=== PATIENT | female | born 1970 | race Caucasian/White ===

== ENCOUNTER 2023-09-21 14:01 | Emergency (ER) | payer OTHER, SELFPAY ==
[2023-09-21 14:16] VITALS: BP 99/71
[2023-09-21 14:39] LABS: % Basophils 0.6 % (0-2); % Eosinophils 5.9 % (0-6); % Immature Granulocytes 0.5 % (0-0.5); % Lymphocytes 6.6 % (20.5-51.1); % Monocytes 6.4 % (1.7-9.3); Absolute Basophils 0.1 10^3/uL (0-0.2); Absolute Eosinophils 0.6 10^3/uL (0-0.7); Absolute Immature Granulocytes 0.1 10^3/uL (0-0.05); Absolute Lymphocytes 0.7 10^3/uL (1.2-3.4); Absolute Monocytes 0.7 10^3/uL (0.1-0.6); Absolute Neutrophils 8.2 10^3/uL (1.4-6.5); Hematocrit 32.9 % (37.0-47.0); Hemoglobin 10.8 g/dL (12.0-16.0); Mean Corp Hgb Conc. 32.8 g/dL (33.0-37.0); Mean Corpuscular Hgb 30.1 pg (27.0-31.0); Mean Corpuscular Volume 91.6 fL (81.0-99.0); Mean Platelet Volume 8.6 fL (7.4-10.4); Nucleated Red Blood Cells % 0 %; Platelet Count 353 10^3/uL (130-400); Red Blood Cell Count 3.59 10^6/uL (4.20-5.40); Red Cell Dist. Width 13.8 % (11.5-14.5); White Blood Cell Count 10.3 10^3/uL (4.8-10.8)
[2023-09-21 14:49] LABS: Lactic Acid 1.5 mmol/L (0.7-2.0)
[2023-09-21 14:53] LABS: ALT (SGPT) 13 U/L (0-35); AST (SGOT) 17 U/L (14-36); Albumin 3.7 g/dl (3.5-5.0); Alkaline Phosphatase 78 U/L (38-126); Blood Urea Nitrogen 16 mg/dl (7-17); Calcium 9.6 mg/dl (8.4-10.2); Carbon Dioxide 28 mmol/L (22-30); Chloride 105 mmol/L (98-107); Glucose 101 mg/dl (70-99); Potassium 4.1 mmol/L (3.5-5.1); Sodium 141 mmol/L (135-145); Total Bilirubin 0.3 mg/dl (0.2-1.3); Total Protein 6.7 g/dl (6.3-8.2); eGFR > 60.00
[2023-09-21 17:20] VITALS: BP 105/79; BMI 17.1
--- NOTE | 2023-09-21 18:56 | ED.GENMED ---
History of Present Illness
General
Chief Complaint: Anal/Rectal Problem
Source: patient
Exam Limitations: none
Time Seen by Provider: 09/21/23 17:25
Nursing documentation reviewed up to this point in time: agreed with
Travel History
Have you had any contact with someone who has COVID-19?: No
Do you have any symptoms of coronavirus? Fever > 100 degrees, chills, cough, shortness of breath, sore throat, loss of taste or smell, muscle aches, or headache?: No
History of Present Illness
History of Present Illness:
Patient with history of anal cancer diagnosed 2 years ago, who currently has colostomy bag as well as anal fistula, presents to ED secondary to continual drainage from her anal fistula which is foul-smelling along with low-grade fever at home. This
has been happening for the past 5 weeks or so, but appears to be worse. During this time, patient has been evaluated at [facility], where surgery was recommended, which patient deferred at that time. Patient is in the midst of seeing
different colorectal surgeon for second opinion, and has an appointment in 2 weeks. Denies vomiting. Denies abdominal pain. Denies loss of appetite. Denies dizziness or weakness. Denies chest pain or shortness of breath.
Past History
Past History
ED Past Medical History: Other (autism)
ED Past Surgical History: Orthopedic (carpal tunnel surgery)
Social History
Tobacco: Non-smoker
Alcohol: None
Drug: None
Review of Systems
Review of Systems
Allergies reviewed?: Yes
All Other Systems: ROS reviewed and negative except as documented in HPI and ROS
Constitutional: Reports fever; Denies chills
EENT: Reports no symptoms
Respiratory: Reports no symptoms
Cardiac: Reports no symptoms
ABD/GI: Reports other (Drainage from anal fistula)
Musculoskeletal: Reports no symptoms
Skin: Reports no symptoms
Neurological: Reports no symptoms
Phy Exam
Physical Exam
Physical Exam:
Physical Exam
General: no apparent distress, not acutely ill. afebrile.
Head: nc/at. eomi
Neck: supple. no meningeal signs.
Heart: s1/s2 regular rate and rhythm, no murmur. equal radial pulses.
Lungs: no acute respiratory distress. clear bilaterally
Abdomen: normal bowel sounds. not tender. rectal exam: fistula noted laterally without active drainage.
Neuro: alert and oriented. no focal neurological deficits
Skin: no rash
Psychiatric: well kept. interactive and cooperative
Extremities: no edema. no calf tenderness.
Course
Orders/Labs/Results
Orders:
Orders
09/21/23 14:17
Electrocardiogram (*1) Urgent
Reason for Study: Other
Other Reason for Exam: Possible Sepsis
09/21/23 14:18
EKG- Treatment ONCE
09/21/23 14:28
Complete Blood Count/With Diff Urgent
Comprehensive Metabolic Panel Urgent
Lactic Acid Q4H
Comment: ON ICE, CANCEL 2ND ORDER IF FIRST LACTIC ACID LEVEL <2
09/21/23 20:38
Doxycycline [Vibramycin] 100 mg PO NOW STA
Abnormal Lab Results
09/21/23
14:28
RBC 3.59 L 10^6/uL
(4.20-5.40)
Hgb 10.8 L g/dL
(12.0-16.0)
Hct 32.9 L %
(37.0-47.0)
MCHC 32.8 L g/dL
(33.0-37.0)
Abs Immat Gran (auto) 0.1 H 10^3/uL
(0-0.05)
Absolute Neuts (auto) 8.2 H 10^3/uL
(1.4-6.5)
Absolute Lymphs (auto) 0.7 L 10^3/uL
(1.2-3.4)
Absolute Monos (auto) 0.7 H 10^3/uL
(0.1-0.6)
Neutrophils % 80.0 H %
(42.2-75.2)
Lymphocytes % 6.6 L %
(20.5-51.1)
Glucose 101 H mg/dl
(70-99)
09/21/23 14:28
09/21/23 14:28
Vital Signs
Initial and Last Documented VS:
Initial Vital Signs
Temp Pulse Resp BP Pulse Ox
99.1 F 115 20 99/71 96
09/21/23 14:16 09/21/23 14:16 09/21/23 14:16 09/21/23 14:16 09/21/23 14:16
Last Documented Vital Signs
Temp Pulse Resp BP Pulse Ox
99.1 F 78 13 97/63 96
09/21/23 14:16 09/21/23 19:40 09/21/23 17:20 09/21/23 19:40 09/21/23 19:40
MDM/Problems Addressed
MDM/Problems Addressed:
Patient with unremarkable blood work results and remains hemodynamically stable.
Discussed with Dr. Sawant, colorectal surgery. Does not feel that patient needs an acute intervention nor any additional imaging studies at this time. Patient can follow-up with Dr. Sunshine later this month. Patient will be contacted if earlier
appointment can be accommodated.
Patient will be started on doxycycline, as this helped her recently when there was increased drainage.
*Critical Care Note
Total Time (30-74mins, 75-104mins- exclusive of procedures): Not Applicable
ED Attending Note
-
Portions of this chart may have been created with voice recognition software.� Occasional wrong word or��sound alike� substitutions may have occurred due to the inherent limitations of voice recognition software.
Discharge Plan
Departure
Patient Disposition: Home (Routine Discharge)
Date of Disposition: 09/21/23
Time of Disposition: 20:39
Patient with high blood pressure during this ER visit?: No
Condition: Good
Discharge Problem:
Anal fistula
Instructions: Anal Abscess and Fistula, Adult (DC)
Prescriptions:
New
doxycycline hyclate 100 mg tablet
100 mg PO BID Qty: 13 0RF
Referrals:
Sabine Ho PA-C [Family Provider] -
Reji Simmons MD [Active] -
Activity Restrictions/Additional Instructions:
As discussed, please follow-up with referred to colorectal surgery as scheduled for further evaluation and treatment. Your prescription has been sent electronically to [facility] pharmacy in [place]. Please return to ED with worsening symptoms.
Interventions
Interventions:
*Risk Screen - Suicide Last Done: 09/21/23 14:12
*General Assessment Last Done: 09/21/23 14:12
*Neglect/Abuse Screening Last Done: 09/21/23 14:12
ED- Fall Risk Assessment Last Done: 09/21/23 20:52
*ED COVID-19 Vaccine History Last Done: 09/21/23 17:20
*Nursing Disposition Last Done: 09/21/23 20:52
ED-Skin Assessment Last Done: 09/21/23 17:20
Discharge Date and Time
Discharge Date/Time: 09/21/23 20:52
[2023-09-21 19:40] VITALS: BP 97/63
[2023-09-21] MEDS: VIBRAMYCIN 100 MG PO (20:49)
== END 2023-09-21 20:52 | disposition home or self-care (01) ==
LOC: EMR 14:01
PROVIDERS: Physician Assistant; EMERGENCY PHYSICIAN Emergency Medicine; FAMILY PHYSICIAN Physician Assistant Medical
DX: K60.3 Anal fistula (principal); Z93.3 Colostomy status
CPT/HCPCS: 99284; 80053; 83605; 85025; 93005

== ENCOUNTER 2023-12-09 22:16 | Inpatient (IN) | payer OTHER, SELFPAY ==
[2023-12-09 15:58] VITALS: BP 131/90
[2023-12-09 17:03] LABS: % Basophils 0.8 % (0-2); % Eosinophils 6.3 % (0-6); % Immature Granulocytes 0.5 % (0-0.5); % Monocytes 8.1 % (1.7-9.3); % Neutrophils 75.3 % (42.2-75.2); Absolute Basophils 0.1 10^3/uL (0-0.2); Absolute Eosinophils 0.6 10^3/uL (0-0.7); Absolute Lymphocytes 0.8 10^3/uL (1.2-3.4); Absolute Monocytes 0.7 10^3/uL (0.1-0.6); Absolute Neutrophils 6.7 10^3/uL (1.4-6.5); Hematocrit 38.9 % (37.0-47.0); Hemoglobin 12.5 g/dL (12.0-16.0); Mean Corp Hgb Conc. 32.1 g/dL (33.0-37.0); Mean Corpuscular Volume 93.3 fL (81.0-99.0); Mean Platelet Volume 8.5 fL (7.4-10.4); Nucleated Red Blood Cells % 0 %; Platelet Count 362 10^3/uL (130-400); Red Blood Cell Count 4.17 10^6/uL (4.20-5.40); White Blood Cell Count 8.9 10^3/uL (4.8-10.8)
[2023-12-09 17:19] LABS: ALT (SGPT) 11 U/L (0-35); AST (SGOT) 16 U/L (14-36); Alkaline Phosphatase 78 U/L (38-126); Blood Urea Nitrogen 15 mg/dl (7-17); Calcium 10.2 mg/dl (8.4-10.2); Carbon Dioxide 29 mmol/L (22-30); Chloride 102 mmol/L (98-107); Glucose 126 mg/dl (70-99); Potassium 3.9 mmol/L (3.5-5.1); Sodium 140 mmol/L (135-145); Total Bilirubin 0.2 mg/dl (0.2-1.3); Total Protein 6.9 g/dl (6.3-8.2); eGFR > 60.00
[2023-12-09] MEDS: NSS 500 IV (17:30)
[2023-12-09 17:52] LABS: Urine Albumin Trace (Neg - Trace); Urine Bilirubin 1+ (Negative); Urine Character Clear (Clear); Urine Color Yellow; Urine Glucose Negative (Negative); Urine Ketone 1+ (Negative); Urine Leukocyte 1+ (Negative); Urine Nitrite Negative (Negative); Urine Occult Blood Negative (Negative); Urine Specific Gravity 1.025 (<1.030); Urine Urobilinogen 1+ (Neg - 1+)
[2023-12-09 18:02] LABS: Urine Bacteria Many (Negative); Urine Red Blood Cell 0-2 /HPF (0-2); Urine Squamous Cell >30 /LPF (Few)
--- NOTE | 2023-12-09 18:26 | ED.GENMED ---
History of Present Illness
General
Chief Complaint: Anal/Rectal Problem
Source: patient
Exam Limitations: none
Time Seen by Provider: 12/09/23 16:36
Travel History
Have you had any contact with someone who has COVID-19?: No
Do you have any symptoms of coronavirus? Fever > 100 degrees, chills, cough, shortness of breath, sore throat, loss of taste or smell, muscle aches, or headache?: No
History of Present Illness
History of Present Illness:
52-year-old female with known anal cancer. Treated with chemotherapy and radiation. Complaining of change in drainage from her rectum and a probable new abscess. Patient is followed by [facility] and Dr. Healy. Low-grade fevers
recently
Past History
Past History
ED Past Medical History: Other (Anal cancer) and Other (autism)
ED Past Surgical History: Orthopedic (carpal tunnel surgery) and Other (Colostomy)
Social History
Tobacco: Non-smoker
Alcohol: None
Drug: None
Review of Systems
Review of Systems
All Other Systems: Not applicable
Constitutional: Reports fever
ABD/GI: Denies abdominal pain or vomiting
Phy Exam
Physical Exam
Physical Exam:
GENERAL: Alert and oriented in no apparent distress. Thin
EYE: Orbits normal.
NECK: Supple
CARDIAC: Regular rate and rhythm without any obvious murmurs.
LUNGS: Clear breath sounds,normal
ABDOMEN: Soft, without focal tenderness or distention. Colostomy in place. Rectal exam with induration some clear drainage and mild erythema tenderness. Hemorrhoids also noted
NEUROLOGICAL: Alert and oriented , grossly non-focal
SKIN: Warm and dry, no rash or lesion, no discoloration, skin intact.
MUSCULOSKELETAL: No edema,no deformity.Good color
PSYCH: Normal and appropriate interaction.
Course
Orders/Labs/Results
Orders:
Orders
12/09/23 16:48
Complete Blood Count/With Diff Urgent
Comprehensive Metabolic Panel Urgent
12/09/23 17:20
CT Abd/Pel (IV only)-DH only Urgent
Comment:
Reason For Exam: Known rectal CA.. Increased drainage and fever
0.9% Sodium Chloride 500 ml [Nss] 500 ml IV BOLUS
12/09/23 17:41
Urinalysis Reflex To Culture Urgent
Date Specimen was Collected: 12/09/23
Time Specimen was Collected: 17:30
Urine Microscopic Reflex Cult Urgent
Urine Culture Urgent
VU Source: U
Specimen Description:
Date Specimen was Collected: 12/09/23
Time Specimen was Collected: 17:30
12/09/23 21:11
Piperacillin/Tazo 4.5 Gram [Zosyn] 4.5 gram in 100 ml IV NOW
12/09/23 21:32
Admit/Transfer Patient As Directed
Co-Sign Provider:
Level of Care: Inpatient admission
Assign to:: Medical/Surgical
Physician / Group: amarilis
Diagnosis: perirectal abscess
Reason for Hospitalization: perirectal abscess
Expected length of stay greater than two midnights?: Yes
ELOS- Estimated Length of Stay in days: 2
I certify the patient meets the requirements for IP care: Yes
Code Status As Directed
Resuscitation Status: Full Code
12/09/23 21:45
Blood Culture Q30M
VU Source: Blood/Venous
Specimen Description:
12/09/23 22:15
Blood Culture Q30M
VU Source: Blood/Venous
Specimen Description:
Abnormal Lab Results
12/09/23 12/09/23
16:48 17:41
RBC 4.17 L 10^6/uL
(4.20-5.40)
MCHC 32.1 L g/dL
(33.0-37.0)
Absolute Neuts (auto) 6.7 H 10^3/uL
(1.4-6.5)
Absolute Lymphs (auto) 0.8 L 10^3/uL
(1.2-3.4)
Absolute Monos (auto) 0.7 H 10^3/uL
(0.1-0.6)
Neutrophils % 75.3 H %
(42.2-75.2)
Lymphocytes % 9.0 L %
(20.5-51.1)
Eosinophils % 6.3 H %
(0-6)
Glucose 126 H mg/dl
(70-99)
Urine Ketones 1+ A
(Negative)
Urine Bilirubin 1+ A
(Negative)
Leukocyte Esterase Rfl 1+ A
(Negative)
Urine WBC (Reflex) 11-15 A /HPF
(0-5)
Urine Bacteria (Reflex) Many A
(Negative)
12/09/23 16:48
12/09/23 16:48
Vital Signs
Initial and Last Documented VS:
Initial Vital Signs
Temp Pulse Resp BP Pulse Ox
99.6 F 119 18 131/90 98
12/09/23 15:58 12/09/23 15:58 12/09/23 15:58 12/09/23 15:58 12/09/23 15:58
Last Documented Vital Signs
Temp Pulse Resp BP Pulse Ox
99.6 F 95 18 104/75 98
12/09/23 15:58 12/09/23 22:02 12/09/23 22:02 12/09/23 22:02 12/09/23 22:02
MDM/Problems Addressed
Differential Diagnosis Includes:
Known anal cancer. Known fistula. Chronic drainage. However has changed in consistency and patient feels there is another abscess forming workup in progress. She also complains of bilateral posterior leg pain that she has had for months. There
is no weakness in the leg there is no cord no swelling no erythema good distal pulses. Workup in progress
*Radiology
Radiology exam reviewed: radiology read reviewed (Possible perirectal abscess)
*Pulse Oximetry
Patient hypoxic: no
*Critical Care Note
Total Time (30-74mins, 75-104mins- exclusive of procedures): Not Applicable
Data Reviewed
Review of Other/Old Records Reveals: Labs and Testing
Update Note
Update Note:
Discussed with colorectal. Admit for IV antibiotics
Patient likely does not have a true penicillin allergy. She stated amoxicillin caused a white rash on her legs 10 years ago. Feel Zosyn would be reasonable
ED Attending Note
-
Portions of this chart may have been created with voice recognition software.� Occasional wrong word or��sound alike� substitutions may have occurred due to the inherent limitations of voice recognition software.
Discharge Plan
Departure
Patient Disposition: Admit
Date of Disposition: 12/09/23
Time of Disposition: 21:10
Presentation/result/management discussed w/ accepting MD/DO: Colorectal
Discharge Problem:
Probable perirectal abscess, History of anal cancer
Prescriptions:
No Action
polyethylene glycol 3350 [Miralax] 17 gram Powder In Packet
17 g PO DAILY
ibuprofen [Advil Liqui-Gels Minis] 200 mg Capsule
200 mg PO HSPRN PRN (Reason: mild pain)
ibuprofen 200 mg Tablet
400 mg PO BIDPRN PRN (Reason: mild pain)
docusate sodium [Stool Softener] 100 mg Capsule
200 mg PO DAILY@1999
morphine 15 mg Tablet
15 mg PO QIDPRN PRN (Reason: severe pain)
Centrum Adult 50 Plus 80 mcg Tablet,Chewable
2 tab PO DAILY
Referrals:
Payton Tee MD [Family Provider] -
Interventions
Interventions:
*Risk Screen - Suicide Last Done: 12/09/23 18:00
*General Assessment Last Done: 12/09/23 15:58
*Neglect/Abuse Screening Last Done: 12/09/23 18:00
ED- Fall Risk Assessment Last Done: 12/09/23 18:00
*ED COVID-19 Vaccine History Last Done: 12/09/23 15:58
JB-Raemle-Ykapgojeza Assessment Last Done: 12/09/23 16:50
ED-Skin Assessment Last Done: 12/09/23 16:50
Discharge Date and Time
Print Language: LIBYAN
[2023-12-09] MEDS: ZOSYN 100 IV (21:19)
--- NOTE | 2023-12-09 21:38 | HPS.HSE ---
Family Physician
-
Family Physician: Payton Tee MD
Chief Complaint
-
rectal pain, drainage
History of Present Illness
52-year-old female past medical history of anal cancer status post ostomy in 2021 performed by colorectal physician at [facility] status post chemotherapy and radiation, perirectal fistula, prior perirectal abscess presenting with severe rectal pain
and drainage of purulent discharge from the rectum for the past week. She has had chills for the past week
Patient states that after the original surgery for anal cancer in 2021 status post ostomy she developed a fistula afterwards that was subsequently opened up at [facility] later that year. She has had persistent drainage from the fistula for the past
year and has been to multiple emergency room's without any definitive treatment. This September she developed a peritoneal abscess for which no intervention was performed. She has been on doxycycline several times.
She denies any nausea vomiting or abdominal pain. She denies any abnormal output from the ostomy.
She denies smoking or alcohol use. She does use medical marijuana.
Medical History
Past Medical History
Past Medical History: Reports Other (anal cancer status post ostomy in 2021 performed by colorectal physician at [facility] status post chemotherapy and radiation, perirectal fistula, prior perirectal abscess)
Past Surgical History: Reports Other (post ostomy)
Social History
Tobacco: Non-smoker
Alcohol: None
Drug: Marijuana
Family History
Family History: Not pertinent
Allergies / Home Medications
Allergies reflects when Allergies were last updated in [employer].
Home Medications with original date entered in [employer]
Allergy/Medication List:
Allergies
Allergy/AdvReac Type Severity Reaction Status Date / Time
amoxicillin Allergy Rash Verified 12/09/23 16:03
Home Medications
doxycycline hyclate 100 mg tablet 100 mg PO BID #13 tabs 09/21/23
Review of Systems
-
History Source: Patient
A 12 point ROS was completed and negative except as noted: Yes
Constitutional: Reports No Symptoms
EENT: Reports No Symptoms
Respiratory: Reports No Symptoms
Cardiac: Reports No Symptoms
Abdomen/GI: Reports See HPI
: Reports No Symptoms
Musculoskeletal: Reports No Symptoms
Skin: Reports No Symptoms
Neurological: Reports No Symptoms
Endocrine: Reports No Symptoms
Hematologic/Lymphatic: Reports No Symptoms
Psych: Reports No Symptoms
Physical Exam
Vital Signs
Vital Signs
Temp Pulse Resp BP Pulse Ox
99.6 F 119 18 131/90 98
12/09/23 15:58 12/09/23 15:58 12/09/23 15:58 12/09/23 15:58 12/09/23 15:58
Physical Exam
General: Well Developed, Well Nourished and No Apparent Distress
HEENT: NormoCephalic, Moist mucous membranes and Atraumatic
Respiratory: Clear
Cardiac: S1/S2 and Regular Rhythm; No Murmur or Rub
GI: Soft, Non Tender, Non Distended and Normal Bowel Sounds; No Organomegaly
Rectal: Deferred by Provider and Other (perirectal erythema, open protrusion from anus )
Musculoskeletal: No Clubbing, No Cyanosis and No Edema
Skin: No Rash
Neuro: Nonfocal/grossly intact
Laboratory Results
-
12/09/23 16:48
12/09/23 16:48
Laboratory Results
Total Bilirubin 0.2 mg/dl (0.2-1.3) 12/09/23 16:48
AST 16 U/L (14-36) 12/09/23 16:48
ALT 11 U/L (0-35) 12/09/23 16:48
Alkaline Phosphatase 78 U/L (38-126) 12/09/23 16:48
Data Reviewed
-
Lab Data: Labs Reviewed by me
Old Records: Reviewed
Impression/Plan
-
IMPRESSION:
PLAN:
# Recurrent perirectal abscess
# History of anal cancer status post ostomy in 2021
# History of perirectal fistula
-CT abdomen pelvis shows concentric abnormal focal fluid collection such as abscess involving the posterior perirectal soft tissues to the left measuring at least 5 cm
-IV fluids
-Check blood cultures
-Cefepime/Flagyl
-Dilaudid for pain
-Colorectal surgery consulted
-N.p.o
Medical marijuana user
Full code
DVT prophylaxis�SCDs
Regular diet
[2023-12-09 22:02] VITALS: BP 104/75
[2023-12-09 23:12] VITALS: BP 93/57
[2023-12-09 23:15] VITALS: BMI 15.8
[2023-12-09] MEDS: DILAUDID 0.5 MG IV (23:41)
[2023-12-09] MEDS: NSS 1000 IV (23:42)
[2023-12-09] MEDS: FLAGYL 500 MG 100 IV (23:42)
[2023-12-10] VITALS (9 sets, daily range): BP systolic 91–111; BP diastolic 58–94; BMI 15.7
[2023-12-10] MEDS: COLACE 100 MG PO ×2 (01:02→08:24)
[2023-12-10] MEDS: DILAUDID 0.5 MG IV ×4 (03:56→20:15)
[2023-12-10] MEDS: STERILE WATER FOR INJECTION 10 ML IV ×2 (03:57→16:30)
[2023-12-10] MEDS: MAXIPIME 2000 MG IV ×2 (03:57→16:30)
[2023-12-10 04:31] LABS: % Basophils 0.6 % (0-2); % Eosinophils 9.7 % (0-6); % Immature Granulocytes 0.4 % (0-0.5); % Monocytes 8.1 % (1.7-9.3); % Neutrophils 72.2 % (42.2-75.2); Absolute Basophils 0.1 10^3/uL (0-0.2); Absolute Eosinophils 0.8 10^3/uL (0-0.7); Absolute Lymphocytes 0.7 10^3/uL (1.2-3.4); Absolute Monocytes 0.6 10^3/uL (0.1-0.6); Absolute Neutrophils 5.6 10^3/uL (1.4-6.5); Hematocrit 32.2 % (37.0-47.0); Hemoglobin 10.4 g/dL (12.0-16.0); Mean Corp Hgb Conc. 32.3 g/dL (33.0-37.0); Mean Corpuscular Hgb 30.2 pg (27.0-31.0); Mean Corpuscular Volume 93.6 fL (81.0-99.0); Mean Platelet Volume 8.6 fL (7.4-10.4); Nucleated Red Blood Cells % 0 %; Platelet Count 330 10^3/uL (130-400); Red Blood Cell Count 3.44 10^6/uL (4.20-5.40); Red Cell Dist. Width 14.2 % (11.5-14.5); White Blood Cell Count 7.8 10^3/uL (4.8-10.8)
[2023-12-10 04:50] LABS: ALT (SGPT) < 10 U/L (0-35); AST (SGOT) 18 U/L (14-36); Albumin 3.4 g/dl (3.5-5.0); Alkaline Phosphatase 61 U/L (38-126); Blood Urea Nitrogen 12 mg/dl (7-17); Calcium 9.5 mg/dl (8.4-10.2); Carbon Dioxide 25 mmol/L (22-30); Chloride 106 mmol/L (98-107); Estimated Creatinine Clearance 76 ml/min; Glucose 97 mg/dl (70-99); Potassium 4.3 mmol/L (3.5-5.1); Sodium 138 mmol/L (135-145); Total Bilirubin 0.4 mg/dl (0.2-1.3); eGFR > 60.00
[2023-12-10] MEDS: FLAGYL 500 MG 100 IV ×2 (08:24→16:30)
[2023-12-10] MEDS: HEPARIN SC ×3 (08:26→20:18)
--- NOTE | 2023-12-10 10:53 | CM ---
Patient seen at bedside with physician. Patient stated that she lives in an apartment and her son is currently staying with her ex . Patient stated the apartment is on a second floor and there are 14 [address]. Patient stated that she has been at
a SNF for 3 months in [facility] following her stay at [facility]. Patient stated that she was supposed to be set up with [facility] for wound care but they never came out. Patient would like to have [facility] if recommended when discharged. Patient is
reluctant to go to another SNF due to feeling that she did not do well at the SNF previously. Patient PCP is Dr. Tee/or ROBERT Davis. Patient uses the [facility] in [place]. Patient complaining of weight loss but no food issues
currently. CM will continue to follow for discharge planning needs. Patient also complained of not having energy to clean in her apartment and that the apartment is emabarrassing for outsiders to come in. Patient indicated that she has been working
on cleaning but it is a struggle. CM will update physician and pending medical treatment plan patient may benefit from VN with [facility] as well as wound care. CM will continue to follow for discharge planning needs.
Plan; home with VN vs SNF
--- NOTE | 2023-12-10 10:57 | CON.CRS ---
Consultation
-
Date/Time Consultation Requested: 12/09/2023, 22:45
Date/Time Consultation Performed: 12/10/2023, 10:15
Requesting Provider: Nona Wilson MD
Performing Provider: Reji Simmons MD
Reason for Consultation: anal cancer
Medical History
-
Chief Complaint: anal pain
History of Present Illness:
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 She was seen on 11/30/2023 in our clinic with Dr. Healy for the management
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 She was diagnosed in March 2022 and underwent a laparoscopic sigmoid loop colostomy for a perforated cancer and biopsies revealed a well-differentiated squamous cell carcinoma.�����
��
She underwent chemoradiation with 5-FU/Mitomycin-C on . The patient states felt better and then stopped treatment. After her symptoms recurred, she resumed chemoradiation 11/2022 to 01/2023 and it was discontinued after the linear accelerator
broke.
������
She then presented to [facility] in 07/2023 with increased rectal pain and drainage for several months. A CT scan revealed a perirectal abscess with a possible fistula. She was advised to return to [facility] but ended up at
[facility]. While there she underwent a bedside drainage of the abscess and was treated with antibiotics.
On examination by Dr. Douglas, colorectal surgeon at [place], there was complete obliteration of the anal canal with tumor located 2 cm from the anal verge. The plan was for a PET/CT and MRI of the pelvis for consideration of an abdominoperineal
resection. She was also referred to palliative/ addiction medicine due to an opioid dependence.�������
An MRI in August 2023 was consistent with a Stage IIIa ([id number]) cancer. She was seen by Dr. Murillo at [facility] from medical oncology and chemotherapy and immunotherapy was discussed but not pursued due to the presence of the infection.����
��
She was admitted to [facility] on 10/02/[address] scan revealed an abscess in the left ischiorectal fossa deep to the air drill operator internus muscle that extends posterior to the rectum slightly to the right of midline. There was an
increase in presacral edema and the size of the abscess compared to a PET/CT on 08/04/2023.�����
��
She was admitted to [facility] on 11/18/2023 at [address] scan of the abdomen and pelvis revealed an irregular mass-like thickening of the distal rectum and anus with a contiguous loculated air-fluid collection along the posterior and
left lateral aspect. The findings were consistent with neoplasm with necrosis and abscess formation. She was treated with intravenous antibiotics and discharged home 2 days later.
After her office visit with Dr. Healy he had scheduled her for a colonoscopy next week (she has never had one) and had planned on potentially performing APR in the future with involvement of plastic surgery and Dr. Stephens with medical oncology if
the patient was committed to treatment with us. She was in the process of gathering her imaging reports/discs and records.
Currently she states she has anal pain and feels like �something is in there�. She had drainage for the past several weeks. It was pus-like in nature but over the past few days has remained yellow serous. She has been using miralax at home to help
with bowel movements. Her colostomy is working and she states she has had no issues with it.
In the ER, her WBC is 7.8. Her vitals have remained normal. CT A/P are at least suspicious for a crescentic abnormal focal fluid collection such as an abscess involving the posterior perirectal soft tissues extending midline and to the left
measuring at least 5 cm in greatest dimension. We have been consulted for further surgical recommendation.
Past Medical History
Past Medical History: Psychiatric (anxiety) and Other (Squamous cell cancer, anus, h/o varicella)
Past Surgical History: Bowel Resection (colostomy creation 03/2022), Tonsilectomy and Other (sinus surgery x 2)
Social History
Tobacco: Smoker
Drug: Marijuana
Allergies / Home Medications
Allergy/AdvReac Type Severity Reaction Status Date / Time
amoxicillin Allergy Rash Verified 12/09/23 16:03
�Medication �Instructions �Recorded �Confirmed �Type
docusate sodium 100 mg capsule 200 mg PO DAILY@199912/09/23 12/09/23 History
(Stool Softener)
ibuprofen 200 mg capsule (Advil 200 mg PO HSPRN PRN mild pain 12/09/23 12/09/23 History
Liqui-Gels Minis)
ibuprofen 200 mg tablet 400 mg PO BIDPRN PRN mild pain 12/09/23 12/09/23 History
morphine 15 mg immediate release 15 mg PO QIDPRN PRN severe pain 12/09/23 12/09/23 History
tablet
multivitamin with minerals-folic 2 tab PO DAILY 12/09/23 12/09/23 History
acid 80 mcg chewable tablet
(Centrum Adult 50 Plus)
polyethylene glycol 3350 17 gram 17 g PO DAILY 12/09/23 12/09/23 History
oral powder packet (Miralax)
Review of Systems
-
History Source: Patient
All other systems: Negative unless noted
: Other (anal drainage, anal pain)
A 10 point review of systems was completed, and was negative except as per HPI.
Physical Exam
Vital Signs
Temp 98.2 F 12/10/23 08:50
Pulse 85 12/10/23 08:50
Resp Rate 24 12/10/23 08:50
Blood pressure 97/68 12/10/23 08:48
SaO2 100 12/10/23 08:50
12/09/23 12/10/23 12/11/23
06:59 06:59 06:59
Actual Weight 44.452 kg
Body Mass Index (BMI) 15.8
Lab Results / Allergies
12/10/23 04:07
12/10/23 04:07
WBC 7.8 10^3/uL (4.8-10.8) 12/10/23 04:07
Hgb 10.4 g/dL (12.0-16.0) L 12/10/23 04:07
Hct 32.2 % (37.0-47.0) L 12/10/23 04:07
Plt Count 330 10^3/uL (130-400) 12/10/23 04:07
Abs Immat Gran (auto) 0.0 10^3/uL (0-0.05) 12/10/23 04:07
Neutrophils % 72.2 % (42.2-75.2) 12/10/23 04:07
Allergy/AdvReac Type Severity Reaction Status Date / Time
amoxicillin Allergy Rash Verified 12/09/23 16:03
Physical Exam
General: Well Developed, Well Nourished and No Apparent Distress
GI: Soft, Non Tender and Non Distended
Rectal: Other (fungating, ulcerated and exophytic firm mass at the anal verge with induration on the left, painful to touch, serous yellow drainage noted)
Neuro: AO x 3
Assessment / Plan
-
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
Plan:
1. Ultimately if she wants to pursue surgery with Dr. Healy, it will require extensive surgical planning involving medical oncology and plastic surgery. This will be discussed and arranged on an outpatient basis. There is no indication for urgent
surgery at this time.
2. No drainage recommended at this time. Continue IV antibiotics.
3. Pain control per primary team.
4. Okay to resume regular diet.
5. Will add daily Miralax.
--- NOTE | 2023-12-10 11:38 | W.PN.HOSP.TC ---
Today's Communication/Plan
-
advance diet
cont ABX
await CRS input
Assessment / Plan
Assessment / Plan
pt is a 52 year old female
Recurrent perirectal abscess (History of anal cancer status post ostomy in 2021 with History of perirectal fistula)--CT abdomen pelvis shows concentric abnormal focal fluid collection such as abscess involving the posterior perirectal soft tissues
to the left measuring at least 5 cm--await CRS input, possible IR drainage?--cont IVF--cont cefepime/flagyl--pain control--advance diet
Medical marijuana user
at least underweight but more likely severe protein calorie malnutrition
code status --Full code
DVT prophylaxis�SCDs
Anticipated Discharge: > 48 hours
Subjective/Interval History
-
Date of Service: December 10, 2023
pt crying--still in pain
Objective Data
-
Labs:
Laboratory Results
12/10/23
04:07
WBC 7.8
Hgb 10.4 L
Hct 32.2 L
Plt Count 330
Sodium 138
Potassium 4.3
Chloride 106
Carbon Dioxide 25
BUN 12
Creatinine 0.6
Glucose 97
Calcium 9.5
Total Bilirubin 0.4
AST 18
ALT < 10
Alkaline Phosphatase 61
Vital Signs:
max temp for 24 hours
12/09/23
15:58
Temp 99.6 F
Vital Signs
Temp Pulse Resp BP Pulse Ox
98.2 F 85 24 97/68 100
12/10/23 08:50 12/10/23 08:50 12/10/23 08:50 12/10/23 08:48 12/10/23 08:50
Review of Systems
-
All other systems: Reviewed and negative
Physical Exam
-
General: Cachectic; Negative No Apparent Distress (crying, mildly distressed)
HEENT: Normocephalic and Atraumatic
Respiratory: Clear to Auscultation; Negative Wheezes or Rhonchi
Cardiac: Regular Rhythm and S1/S2; Negative Murmur
GI: Soft, Nontender, Nondistended, Normal Bowel Sounds and Ostomy
Musculoskeletal: No Clubbing, No Cyanosis and No Edema
Neuro: Awake and Alert
--- NOTE | 2023-12-10 11:54 | PTCARENOTE ---
this RN walked patient's on Morphine ER to pharmacy to be keep there during admission. Receipt from pharmacy kept w/ patient's paper chart.
[2023-12-10] MEDS: NSS 1000 IV (16:31)
--- NOTE | 2023-12-10 18:06 | PTCARENOTE ---
Patient arrived from ED upset about low residue diet. IVF are infusing and Vitals are stable. Colostomy from home is c/d/i. RN reviewed plan of care and orders with patient
[2023-12-10] MEDS: MIRALAX 17 GRAMS PO (20:41)
[2023-12-11] VITALS (9 sets, daily range): BP systolic 75–112; BP diastolic 54–67; BMI 15.7
[2023-12-11] MEDS: FLAGYL 500 MG 100 IV ×3 (00:24→17:46)
[2023-12-11] MEDS: DILAUDID 0.5 MG IV ×6 (00:27→21:10)
[2023-12-11] MEDS: STERILE WATER FOR INJECTION 10 ML IV ×2 (04:22→17:39)
[2023-12-11] MEDS: MAXIPIME 2000 MG IV ×2 (04:22→17:39)
[2023-12-11] MEDS: NSS 1000 IV (08:50)
[2023-12-11] MEDS: MIRALAX 17 GRAMS PO (08:52)
[2023-12-11] MEDS: HEPARIN SC ×4 (08:52→21:23)
--- NOTE | 2023-12-11 11:11 | CM ---
Case management following for d/c planning
Chart reviewed, met with pt
Cont antibiotics
Advance diet
CRS/IR consults
Plan - anticipate home with HH vs snf when medically ready
--- NOTE | 2023-12-11 12:20 | W.PN.HOSP.TC ---
Today's Communication/Plan
-
for IR aspiration
pain control
Assessment / Plan
Assessment / Plan
pt is a 52 year old female
Recurrent perirectal abscess (History of anal cancer status post ostomy in 2021 with History of perirectal fistula)--CT abdomen pelvis shows concentric abnormal focal fluid collection such as abscess involving the posterior perirectal soft tissues
to the left measuring at least 5 cm--apprec CRS input, possible IR drainage today--cont IVF--cont cefepime/flagyl--pain control--advance diet after procedure
Medical marijuana user
at least underweight but more likely severe protein calorie malnutrition
code status --Full code
DVT prophylaxis�SCDs
Anticipated Discharge: > 48 hours
Subjective/Interval History
-
Date of Service: December 11, 2023
pt waiting for IR aspiration
Objective Data
-
Vital Signs:
max temp for 24 hours
12/10/23
17:56
Temp 99.1 F
Vital Signs
Temp Pulse Resp BP Pulse Ox
98.6 F 71 16 99/59 98
12/11/23 07:32 12/11/23 07:32 12/11/23 07:32 12/11/23 07:32 12/11/23 07:32
I&O
12/10/23 12/11/23 12/12/23
06:59 06:59 06:59
Intake Total 840 / 840
Output Total 275 / 275
Balance 565 / 565
Review of Systems
-
All other systems: Reviewed and negative
Abdomen/GI: Reports Abdominal Pain and Other (rectal drainage)
Physical Exam
-
General: Cachectic
HEENT: Normocephalic and Atraumatic
Respiratory: Clear to Auscultation; Negative Wheezes or Rhonchi
Cardiac: Regular Rhythm and S1/S2; Negative Murmur
GI: Soft, Nondistended, Normal Bowel Sounds and Tender (diffusely without guarding or rebound)
Musculoskeletal: No Clubbing, No Cyanosis and No Edema
Skin: Warm
Neuro: Awake
Psych: Anxious
--- NOTE | 2023-12-11 12:30 | W.PN.CRS1 ---
Today's Communication / Plan
-
IR consult
Assessment/Plan
-
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
Plan:
1. Ultimately if she wants to pursue surgery with Dr. Healy, it will require extensive surgical planning involving medical oncology and plastic surgery. This will be discussed and arranged on an outpatient basis. There is no indication for urgent
surgery at this time.
2. Continue IV antibiotics.
3. Will consult interventional radiology for possible aspiration or drain for area of enhancement in the posterior perirectal area -unsure if this is a complex abscess versus necrotic tumor.
4. Remain n.p.o. for IR. Okay to resume regular diet after interventional radiology.
5. Continue daily Miralax.
Subjective Data
Subjective Data
Date of Service: December 11, 2023
Patient states that she is still in a lot of perirectal pain. Her stoma is functioning. She is able to urinate. She still has discharge at this clear yellow in nature. She is very anxious.
Objective Data
-
Vital Signs
Temp Pulse Resp BP Pulse Ox
98.6 F 71 16 99/59 98
12/11/23 07:32 12/11/23 07:32 12/11/23 07:32 12/11/23 07:32 12/11/23 07:32
Intake & Output
12/10/23 12/11/23 12/12/23
06:59 06:59 06:59
Intake Total 840 / 840
Output Total 275 / 275
Balance 565 / 565
Intake:
IV fluids (Total) 740 / 740
IV piggybacks 100 / 100
Output:
Urine, Voided 275 / 275
Lab Results
12/10/23 04:07
12/10/23 04:07
Physical Exam
-
General: No Acute Distress and AOx3
Abdomen: Soft, Non Distended and Non Tender
Skin: Warm and Dry
--- NOTE | 2023-12-11 15:49 | PN.CDI ---
CDI
- -
CDI:
Physician Documentation Request
Admit Date: 12/09/23 22:16
Dear Doctor Jose,
Patient admitted with recurrent perirectal abscess.
Urine culture positive for Group G streptococcus
UA results:
Laboratory Tests
12/09/23
17:41
Urine Color Yellow
Urine Clarity Clear
Urine Nitrite (Reflex) Negative
Leukocyte Esterase Rfl 1+ A
Urine WBC (Reflex) 11-15 A
Urine Bacteria (Reflex) Many A
Could you please provide a diagnosis that supports the above lab abnormalities and additional evaluation/ monitoring:
Urinary tract infection
Asymptomatic bacteruria
Other
Use of terms such as suspected, likely, concern for, or probable (associated with a specific diagnosis that is being evaluated, monitored, or treated as if it exists) are acceptable and can be coded in the inpatient setting, when documented at the
time of discharge.
Thank you,
Aurora Romero RN, BSN
CDI Specialist
tiger text
Please use your independent medical judgment in providing your response.
--- NOTE | 2023-12-11 17:15 | W.PN.UPDATE ---
Update Note
Progress Note Update
Procedure: CT guided presacral abscess drain
- 10F drain placed into presacral collection.
- Thick, purulent fluid. ~10mL fluid aspirated and sent to lab.
- Pt reports improvement in symptoms post drainage.
- Drain orders placed.
[2023-12-11 20:39] LABS: Body Fluid Granulocytes 95 %
[2023-12-11 20:40] LABS: Body Fluid Lymphocytes 2 %; Body Fluid Macrophages 5 %
[2023-12-12] MEDS: FLAGYL 500 MG 100 IV ×4 (00:39→23:02)
[2023-12-12] MEDS: DILAUDID 0.5 MG IV ×7 (00:44→23:02)
[2023-12-12] MEDS: COLACE 100 MG PO ×2 (00:44→21:14)
[2023-12-12] MEDS: NSS 1000 IV ×2 (00:50→07:46)
[2023-12-12] MEDS: MAXIPIME 2000 MG IV ×2 (04:07→15:07)
[2023-12-12] MEDS: STERILE WATER FOR INJECTION 10 ML IV ×2 (04:07→15:07)
[2023-12-12 05:25] LABS: Hematocrit 31.6 % (37.0-47.0); Hemoglobin 10.2 g/dL (12.0-16.0); Mean Corp Hgb Conc. 32.3 g/dL (33.0-37.0); Mean Corpuscular Hgb 29.9 pg (27.0-31.0); Mean Corpuscular Volume 92.7 fL (81.0-99.0); Platelet Count 314 10^3/uL (130-400); Red Blood Cell Count 3.41 10^6/uL (4.20-5.40); Red Cell Dist. Width 14.1 % (11.5-14.5); White Blood Cell Count 8.2 10^3/uL (4.8-10.8)
[2023-12-12 05:48] LABS: Blood Urea Nitrogen 14 mg/dl (7-17); Calcium 9.2 mg/dl (8.4-10.2); Carbon Dioxide 27 mmol/L (22-30); Chloride 104 mmol/L (98-107); Estimated Creatinine Clearance 75 ml/min; Glucose 102 mg/dl (70-99); Magnesium 1.9 mg/dl (1.6-2.3); Potassium 4.7 mmol/L (3.5-5.1); Sodium 135 mmol/L (135-145); eGFR > 60.00
[2023-12-12 07:16] VITALS: BP 100/59
[2023-12-12] MEDS: MIRALAX 17 GRAMS PO (07:46)
[2023-12-12] MEDS: HEPARIN SC ×2 (07:47→19:45)
--- NOTE | 2023-12-12 12:15 | W.PN.HOSP.TC ---
Today's Communication/Plan
-
cool compresses to perineal area--monitor area
cont abx
pain control
Assessment / Plan
Assessment / Plan
pt is a 52 year old female
Recurrent perirectal abscess (History of anal cancer status post ostomy in 2021 with History of perirectal fistula)--CT abdomen pelvis shows concentric abnormal focal fluid collection such as abscess involving the posterior perirectal soft tissues
to the left measuring at least 5 cm--apprec CRS input, s/p IR drainage 12/[address] drain in place--stop IVF--cont cefepime/flagyl--pain control
group G strep in urine not significant as she has rectal drainage plus already being treated
Medical marijuana user
at least underweight but more likely severe protein calorie malnutrition
code status --Full code
DVT prophylaxis�SCDs
Anticipated Discharge: > 48 hours
Subjective/Interval History
-
Date of Service: December 12, 2023
pt c/o perineal pain/firmness
Objective Data
-
Labs:
Laboratory Results
12/12/23
04:51
WBC 8.2
Hgb 10.2 L
Hct 31.6 L
Plt Count 314
Sodium 135
Potassium 4.7
Chloride 104
Carbon Dioxide 27
BUN 14
Creatinine 0.5 L
Glucose 102 H
Calcium 9.2
Vital Signs:
max temp for 24 hours
12/12/23
07:16
Temp 99.2 F
Vital Signs
Temp Pulse Resp BP Pulse Ox
99.2 F 70 16 100/59 99
12/12/23 07:16 12/12/23 07:16 12/12/23 07:16 12/12/23 07:16 12/12/23 07:16
I&O
12/11/23 12/12/23 12/13/23
06:59 06:59 06:59
Intake Total 840 / 840 1850 / 185
Output Total 275 / 275 63 / 63
Balance 565 / 565 1787 / 178 -
Review of Systems
-
All other systems: Reviewed and negative
Genitourinary: Reports Other (perineal pain)
Physical Exam
-
General: Appears Chronically Ill and Cachectic
HEENT: Normocephalic and Atraumatic
Respiratory: Clear to Auscultation; Negative Wheezes or Rhonchi
Cardiac: Regular Rhythm and S1/S2; Negative Murmur
GI: Soft, Nontender, Nondistended, Normal Bowel Sounds and Other (KORTNEY drain in place--draining cloudy fluid)
Genito-urinary: Other (just posterior to vaginal opening on left side between anua and vagina--firm area tender to touch)
Musculoskeletal: No Clubbing, No Cyanosis and No Edema
Skin: Warm
Neuro: Awake
--- NOTE | 2023-12-12 14:58 | CON.MD ---
Consultation - Medical
-
Asked to see this 53 y/o single woman due to anxiety and depression. She was admitted on 12/09/23 with change in drainage from her rectum and found to have a presacral abscess which was drained yesterday. She has a history of anal cancer. She
reports she has been getting very little sleep since July -- about an hour a night. The onset seems to have been a procedure without anesthesia at [facility] and soon after, [place] [address] in charges. No
one was injured, but she had methamphetamine in her tox screen from being exposed at the home of her son's father. She is very underweight with a BMI of 15.7 and would like to gain 50 lbs. Feels anxious, particularly about her prognosis. Is
depressed without suicidal ideation. Cries frequently. No psychotic symptoms.
PH: Although she claims to have never seen a psychiatrist nor been admitted to a psychiatric hospital, she has been treated witha variety of antidepressants which were not helpful and believes she took mirtazapine which caused bad dreams. She has
been prescribed Xanax as an outpatient recently by her PCP. Had been on Suboxone in the past for opiate dependence.
FH: Father worked for [employer] and in 2019 in [place]. Her siblings did not tell her about the and likely took most of his money. Mother in January 2023. Has a brother with PTSD and anger problems; he had abused methamphetamine. She also
has a sister; she is he middle child. Parents when she was 12.
he has three children. Her 16 y/o son had been living with her, but is now with his father because she is in the hospital. The father is a food truck caterer and is not around much to supervise their son who has experimented with drugs. She worries
about her son. She has a 34 y/o son who is the [employer] and stationed in [place]. He has a son. Sonia has a 31 y/o daughter in [place] with depression.
SH: Raised in [facility]. Began using drugs at 13; got GED at 15 and only in more recent years
She had another period of abusing methamphetamine in her 30's. Had an opiate addiction in the past.
MSE: Thin woman who is in apparent pain particularly when repositioning herself. Alert and oriented. Pleasant despite clearly being uncomfortable. Depressed without suicidal ideation. Affect appropriate to mood. No hallucionations or delusions.
Seems to be of average intelligence. Judgment has been poor in the past.
Diagnosis: Major Depression, recurrent, moderate
Adjustment Disorder with Anxiety
Plan: I recommended a trial of mirtazapine despite her memory of having vivid dreams from it. It should help depression, anxiety, appetite and low body weight and sleep. She was reassured that I will check with her tomorrow. Will start with 7.5
mg. which should help sleep and appetite.
[2023-12-12] MEDS: TYLENOL 650 MG PO (15:07)
--- NOTE | 2023-12-12 15:20 | W.PN.CRS1 ---
Addendum entered and electronically signed by Alex Dill MD 12/12/23 15:48:
I saw and examined the patient.
The Optometric Technologist's note was reviewed and I agree with the note.
Comment: Drain functioning. Feeling slightly improved. Anxious and tearful about her current situation, c/o insomnia. No acute intervention indicated at this time, would cont abx. She was amenable to psych consult to help with anxiety/depression.
Follow micro.
Original Note:
Today's Communication / Plan
-
Continue regular diet with supplements
IR drain/ABX
Psychiatry consultation
Assessment/Plan
-
52-year-old female with PMH of anal squamous cell cancer s/p laparoscopic sigmoid loop colostomy for a perforated cancer with HISTORIC INTERPRETER in 2021 (stopped just prior to finishing d/t weight loss and delay d/t equipment malfunction) complicated by recurrence
in 2022 with additional HISTORIC INTERPRETER; stopped since July 2023 as she reported poor tolerance. Initially, followed at [facility] and later [facility]. She has had worsening perianal pain as well as recurrent pelvic abscess which have been previously treated with
antibiotics, most recently at [facility] earlier this month.
She is now transitioning her care to with Dr. Healy and Dr. Stephens and was undergoing outpatient work up when she presented through the ED with worsening pelvic/back pain. CT showing crescent shaped posterior sacral fluid collection about 5 cm x
2 cm; on her last CT at [place] on 11/18/23, this was described as a necrotic tumor with 6.5x6cm collection.
Now PPD #1 IR drainage of abscess with reported relief in symptoms.
No acute surgical intervention currently indicated; definitive surgery will need to be coordinated between multiple specialties (CRS, Product Engineering Manager Onc and plastics), will likely be done as outpatient/scheduled basis
AFVSS
Labs stable, no leukocytosis or fevers
Pain improving
Protein calore malnutrition with BMI of 15.7. Tolerating diet but poor appetite.
Tearful, anxious and reporting insomnia
�Continue IR drain
�Continue with IV antibiotics, cultures pending from IR procedure
�Continue regular diet with addition of supplements. Dietary consult
- Psychiatry consult
� DVT PPx with subQ heparin
� Analgesics prn
� Appreciate hospitalist
Subjective Data
Subjective Data
Date of Service: December 12, 2023
Patient seen and examined at bedside with Dr. Dill. Denies n/v. Poor appetite. Passing flatus/stool via stoma but with cramping if she doesn't take miralax with food. Reports significant relief in pain after IR drain placed. Feeling much less
pressure around her low back. Tearful when discussing her condition, anxious about how to move forward. Notes that she has not been getting sleep for some time.
Objective Data
-
Vital Signs
Temp Pulse Resp BP Pulse Ox
99.2 F 70 16 100/59 99
12/12/23 07:16 12/12/23 07:16 12/12/23 07:16 12/12/23 07:16 12/12/23 07:16
Intake & Output
12/11/23 12/12/23 12/13/23
06:59 06:59 06:59
Intake Total 840 / 840 1850 / 1850
Output Total 275 / 275
Balance 565 / 565 1787 / 1787 - / 25
Intake:
Oral fluids 720 / 720
IV fluids (Total) 740 / 740 920 / 920
NSS 150 / 150
IV piggybacks 100 / 100 200 / 200
Amount instilled into Drain (
Total)
Left Middle Sacrum Mina-
Degroot A Placed in IR
Output:
Drain Output (Total)
Left Middle Sacrum Mina-
Degroot A Placed in IR
Urine, Voided 275 / 275
Other:
Number of approximated MODERATE 2
amounts of urine
Number of unmeasured liquid
stools
Colostomy 2
Lab Results
12/12/23 04:51
12/12/23 04:51
Physical Exam
-
General: AOx3 and Other (Anxious, tearful, shaky)
HEENT: Other (temporal wasting)
Abdomen: Soft, Non Distended, Non Tender and Other (ostomy present. appliance empty at time of exam)
Skin: Warm, Dry and Other (IR drain with cloudy serous fluid present)
[2023-12-12 15:29] VITALS: BP 101/63
--- NOTE | 2023-12-12 16:30 | CHAP ---
Sonia had requested a strategic partnership manager visit. She shared her story and her concerns, and asked for prayer - it's [birth year] birthday. Emotional and spiritual support provided. Assured her I'd visit again tomorrow.
[2023-12-12] MEDS: REMERON 7.5 MG PO (21:03)
[2023-12-12 23:25] VITALS: BP 105/65
[2023-12-13] MEDS: MAXIPIME 2000 MG IV (03:54)
[2023-12-13] MEDS: STERILE WATER FOR INJECTION 10 ML IV (03:54)
[2023-12-13 05:19] LABS: Blood Urea Nitrogen 11 mg/dl (7-17); Calcium 9.7 mg/dl (8.4-10.2); Carbon Dioxide 24 mmol/L (22-30); Chloride 106 mmol/L (98-107); Estimated Creatinine Clearance 75 ml/min; Glucose 118 mg/dl (70-99); Magnesium 1.9 mg/dl (1.6-2.3); Potassium 4.6 mmol/L (3.5-5.1); Sodium 138 mmol/L (135-145); eGFR > 60.00
[2023-12-13] MEDS: DILAUDID 0.5 MG IV ×6 (05:19→22:56)
[2023-12-13] MEDS: TYLENOL 650 MG PO ×2 (06:00→19:19)
[2023-12-13 06:59] LABS: Hemoglobin 10.8 g/dL (12.0-16.0); Mean Corp Hgb Conc. 32.7 g/dL (33.0-37.0); Mean Corpuscular Hgb 29.8 pg (27.0-31.0); Mean Corpuscular Volume 90.9 fL (81.0-99.0); Mean Platelet Volume 9.3 fL (7.4-10.4); Platelet Count 369 10^3/uL (130-400); Red Blood Cell Count 3.63 10^6/uL (4.20-5.40); Red Cell Dist. Width 14.1 % (11.5-14.5); White Blood Cell Count 9.3 10^3/uL (4.8-10.8)
[2023-12-13 07:00] VITALS: BP 107/57
[2023-12-13] MEDS: FLAGYL 500 MG 100 IV (07:40)
[2023-12-13] MEDS: MIRALAX 17 GRAMS PO (07:40)
[2023-12-13] MEDS: HEPARIN SC ×2 (07:41→19:39)
--- NOTE | 2023-12-13 12:53 | W.PN.HOSP.TC ---
Today's Communication/Plan
-
consult ID
cont [id number]
Assessment / Plan
Assessment / Plan
pt is a 52 year old female
Recurrent perirectal abscess (History of anal cancer status post ostomy in 2021 with History of perirectal fistula)--CT abdomen pelvis shows concentric abnormal focal fluid collection such as abscess involving the posterior perirectal soft tissues
to the left measuring at least 5 cm--apprec CRS input, s/p IR drainage 12/10 and [address] drain in place, culture with E. coli, Enterococcus, group G strep, gm neg bacilli --stop IVF--cont cefepime/flagyl--pain control--consult ID
group G strep in urine not significant as she has rectal drainage plus already being treated
Medical marijuana user
at least underweight but more likely severe protein calorie malnutrition
code status --Full code
DVT prophylaxis�SCDs
Anticipated Discharge: > 48 hours
Subjective/Interval History
-
Date of Service: December 13, 2023
pt without many c/o
Objective Data
-
Labs:
Laboratory Results
12/13/23
04:38
WBC 9.3
Hgb 10.8 L
Hct 33.0 L
Plt Count 369
Sodium 138
Potassium 4.6
Chloride 106
Carbon Dioxide 24
BUN 11
Creatinine 0.5 L
Glucose 118 H
Calcium 9.7
Vital Signs:
max temp for 24 hours
12/12/23
15:29
Temp 99.6 F
Vital Signs
Temp Pulse Resp BP Pulse Ox
98.8 F 73 18 107/57 98
12/13/23 07:00 12/13/23 07:00 12/13/23 07:00 12/13/23 07:00 12/13/23 07:00
I&O
12/12/23 12/13/23 12/14/23
06:59 06:59 06:59
Intake Total 1850 / 1849 900 / 900
Output Total 63 / 50 / 50
Balance 1786 / 1786 850 / 850
Review of Systems
-
All other systems: Reviewed and negative
Physical Exam
-
General: Appears Chronically Ill and Cachectic
HEENT: Normocephalic and Atraumatic
Respiratory: Clear to Auscultation; Negative Wheezes or Rhonchi
Cardiac: Regular Rhythm and S1/S2; Negative Murmur
GI: Soft, Nontender, Nondistended and Normal Bowel Sounds
Musculoskeletal: No Clubbing, No Cyanosis and No Edema
Neuro: Awake
--- NOTE | 2023-12-13 13:39 | CON.ID ---
Consultation
-
Date/Time Consultation Requested: December 13, 2023 1254
Date/Time Consultation Performed: December 13, 2023 1340
Requesting Provider: Dr. Yakelin Garcia
Performing Provider: Dr. Bruna Frost
Reason for Consultation: Perirectal abscess
Chief Complaint / Past History
Chief Complaint
rectal pain
History of Present Illness
History obtained from review medical records as well as from the patient. She is a 52-year-old female diagnosed with anal squamous cell carcinoma in 2021 status post diverting colostomy at [facility] followed by chemo and radiation, with recurrence 2022
and had another course of chemoradiation. She had perirectal fistula with intermittent drainage in 2022. In July 2023 she was admitted to [facility] due to persistent anal drainage and pain. Imaging showed perirectal abscess with
possible fistula. She was treated with antibiotic. She then presented to [facility] and found to have tumor obliterating the anal canal. She underwent bedside drainage and was treated with antibiotics. Plan was for eventual resection.
In August MRI and PET showed stage IIIa cancer. In September she went to [facility] with a left ischial rectal fossa abscess treated with antibiotic. Recently she was at [facility] in early November with CT scanning reported
as neoplasm with necrosis and abscess formation distal rectum and anus. He was on antibiotic in the hospital and discharged without antibiotic. She went to see colorectal Dr. Healy mid-November with plan of colonoscopy and eventual abdominal perineal
resection. However she came to the hospital December 08 due to severe rectal pain and purulent drainage. The CAT scan here revealed abnormal focal fluid collection involving the posterior perirectal soft tissue extending midline into the left. On November
, she underwent IR percutaneous drainage with 10 cc of pus output. Cultures are now with multiple organisms. Patient reports subjective fever and chills. No abdominal pain. No change in bowel frequency. She continues to have unintentional
weight loss. She does not think she has penicillin allergy. In the remote past she was placed on amoxicillin and she developed a few blotches on her leg. She is willing to try penicillin challenge here in the hospital.
Past History
Additional Past Medical History:
Stage IIIa anal SCC initially diagnosed 2021 status post diverting colostomy, chemoradiation, recurrence 2022 s/p chemoradiation
Perirectal fistula
Perirectal abscesses
anxiety
sinus surgery
Allergy History:
amoxicillin Allergy (Verified 12/09/23 16:03)
pt does not think she has PCN allergy. Long time ago she had few blotches on her legs and told allergy to amoxicillin.
she had amoxicillin after that.
Medications Reviewed: Yes
Current Antibiotics:
Cefepime d4
metronidazole d4
Social History
Tobacco: Non-Smoker
Alcohol: None
Drug: Marijuana
Family History
Family History: Not Pertinent
Review of Systems
Review of Systems
General: Negative Change in Appetite
HEENT: Negative Sinus Problems, Headache or Pharyngitis
Cardiovascular: Negative Chest Pain or Dyspnea
Respiratory: Negative Cough
Gasteroenterology: Weight Loss; Negative Nausea or Vomiting
Genital / Urological: Negative Dysuria or Flank Pain
Endocrine: Negative Weakness
Skin / Hair / Nails: Negative Rash
Neurological: Negative Headache or Dizziness
All systems: All other systems were reviewed and were negative
Vital Signs
Temp Pulse Resp BP Pulse Ox
98.8 F 73 18 107/57 98
12/13/23 07:00 12/13/23 07:00 12/13/23 07:00 12/13/23 07:00 12/13/23 07:00
Physical Exam
Physical Exam
Constitutional: No Acute Distress, Comfortable and Cachetic
Cardiovascular: Regular Rate and S1/S2
Pulmonary: Clear
Gastrointestinal: Soft, Non Tender, Non Distended, Normal Bowel Sounds and Other (Dung drain cloudy serous fluid)
Extremities: Negative Edema
Neurological: AO x 3
Lines: Port (RCW: no erythema)
Lab / Diagnostic Study Results
12/13/23 04:38
12/13/23 04:38
Abs Immat Gran (auto) 0.0 10^3/uL (0-0.05) 12/10/23 04:07
Absolute Neuts (auto) 5.6 10^3/uL (1.4-6.5) 12/10/23 04:07
Absolute Lymphs (auto) 0.7 10^3/uL (1.2-3.4) L 12/10/23 04:07
Absolute Monos (auto) 0.6 10^3/uL (0.1-0.6) 12/10/23 04:07
Absolute Basos (auto) 0.1 10^3/uL (0-0.2) 12/10/23 04:07
Immature Gran % 0.4 % (0-0.5) 12/10/23 04:07
Neutrophils % 72.2 % (42.2-75.2) 12/10/23 04:07
Lymphocytes % 9.0 % (20.5-51.1) L 12/10/23 04:07
Monocytes % 8.1 % (1.7-9.3) 12/10/23 04:07
Eosinophils % 9.7 % (0-6) H 12/10/23 04:07
Basophils % 0.6 % (0-2) 12/10/23 04:07
Ur Squamous Epith Cells >30 /LPF (Few) 12/09/23 17:41
Microbiology Results
Micro:
12/11/23 16:51 Wound Culture - Preliminary
Abscess Escherichia coli
Gram negative bacilli
Enterococcus species
Group G Streptococcus
Gram Stain - Preliminary
12/09/23 22:01 Blood Culture - Preliminary
Blood/Venous No Growth in 72 hours- Final report to follow
12/09/23 22:01 Blood Culture - Preliminary
Blood/Venous No Growth in 72 hours- Final report to follow
12/09/23 17:41 Urine Culture - Final
Urine Group G Streptococcus
12/09/23 CT a/p: findings are at least suspicious for a crescentic abnormal focal fluid collection such as an abscess involving the posterior perirectal soft tissues extending midline and to the left measuring at least 5 cm in greatest dimension.
Assessment / Plan
# Recurrent peterson-rectal abscess
# Stage IIIa anal ca, hx chemoradiation x 2; for eventual APR
# h/o diverting colostomy
# Cachexia
- 12/10 s/p IR perc drainage abscess
Cx: E. coli, GNR, Group G Strep, Enterococcus
- Questionable PCN allergy. Pt agreeable to trial of PCN challenge here.
Replace cefepime/metronidazole with Zosyn.
- Pt consented to HIV screen.
--- NOTE | 2023-12-13 14:10 | PHA.VAN.IN ---
Assessment
- Assessment
Renal Function: Appears similar to baseline
Maximum Temperature: 99.2
Minimum Temperature: 98.8
Concomitant Antimicrobials: Cefepime, Metronidazole
AUC Dosing Plan
- Empiric Dosing
Initial / Loading Dose: Vanc 1000mg IV (22.6mg/kg)--administration pending
Maintenance Regimen: Vanc 500mg IV q12H begin 12/13 0600
Estimated AUC (mcg*h/mL): 502
Estimated Peak (mcg*h/mL): 29.4
Estimated Trough (mcg/ml): 14.1
Estimated Half Life (H): 10.4
- Monitoring
No levels ordered at this time: Consider levels after 12/15/23 1800 dose.
Pharmacokinetics Vancomycin I
- -
Patient Age: 53
Patient Sex: Female
Vancomycin Day #: 1
Indication: Skin And Soft Tissue
Requesting Provider: Santosh
Pertinent Antimicrobial Allergies:
Amoxicillin = rash
Height / Weight:
Height 5 ft 6 in
Actual Weight 44.14 kg
IBW in k.3
Adjusted BW in kg: NA
- Vital Signs / Lab Results
Temp Pulse Resp BP Pulse Ox
98.8 F 73 18 107/57 98
12/13/23 07:00 12/13/23 07:00 12/13/23 07:00 12/13/23 07:00 12/13/23 07:00
Lab Results - Hematology
12/12/23 12/13/23
04:51 04:38
WBC 8.2 9.3
Lab Results - Chemistry
12/12/23 12/13/23
04:51 04:38
BUN 14 11
Creatinine 0.5 L 0.5 L
Estimated Creat Clear 75 75
Microbiology Results
12/11/23 16:51 Wound Culture - Preliminary
Abscess Escherichia coli
Gram negative bacilli
Enterococcus species
Group G Streptococcus
Gram Stain - Preliminary
12/09/23 22:01 Blood Culture - Preliminary
Blood/Venous No Growth in 72 hours- Final report to follow
12/09/23 22:01 Blood Culture - Preliminary
Blood/Venous No Growth in 72 hours- Final report to follow
[2023-12-13 15:00] VITALS: BP 105/66
[2023-12-13] MEDS: ZOSYN 50 IV ×2 (15:15→22:22)
--- NOTE | 2023-12-13 16:05 | W.PN.UPDATE ---
Update Note
Progress Note Update
53 y/o woman with anal cancer seen yesterday due to depression, anxiety and insomnia who is underweight who was found to have a presacral abscess which was drained during this admission. I had prescribed mirtazapine 7.5 mg. HS and she reports
that she 'finally slept' although was interrupted by having VS checked and medications administered. Appetite is good. Anxiety may be somewhat less. No adverse effects -- she was concerned she would have bad dreams which may have occurred in
remote past from mirtazapine.
Will continue mirtazapine 7.5 mg. HS unchanged. Dose could be increased if necessary, particularly to address depression.
If possible, if she could not be disturbed when asleep at night it will help the quality and quantity of her sleep.
Psychiatry will follow.
--- NOTE | 2023-12-13 16:06 | CHAP ---
Stopped back to check on Sonia, as promised. She was in better spirits, after a good night's sleep - trusting in God. I read from the psalms and brought a prayer blanket, which was gratefully received. 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
be available.
[2023-12-13] MEDS: COLACE 100 MG PO ×2 (16:30→19:21)
[2023-12-13] MEDS: MOTRIN 400 MG PO (19:19)
[2023-12-13] MEDS: FLUSH (NSS) 1 FLUSH IV ×3 (19:40→22:57)
[2023-12-13] MEDS: REMERON 7.5 MG PO (22:22)
[2023-12-13 23:40] VITALS: BP 94/64
[2023-12-14] MEDS: ZOSYN 50 IV ×4 (04:47→21:08)
[2023-12-14] MEDS: DILAUDID 0.5 MG IV ×2 (04:47→07:59)
[2023-12-14] MEDS: FLUSH (NSS) 1 FLUSH IV (04:48)
[2023-12-14] MEDS: TYLENOL 650 MG PO ×2 (05:01→13:15)
[2023-12-14] MEDS: MOTRIN 400 MG PO ×3 (05:02→21:16)
[2023-12-14 06:01] LABS: Hematocrit 33.3 % (37.0-47.0); Mean Corpuscular Hgb 30.6 pg (27.0-31.0); Mean Corpuscular Volume 92.8 fL (81.0-99.0); Mean Platelet Volume 8.7 fL (7.4-10.4); Platelet Count 314 10^3/uL (130-400); Red Blood Cell Count 3.59 10^6/uL (4.20-5.40)
[2023-12-14 06:28] LABS: ALT (SGPT) 10 U/L (0-35); AST (SGOT) 15 U/L (14-36); Albumin 3.3 g/dl (3.5-5.0); Alkaline Phosphatase 68 U/L (38-126); Blood Urea Nitrogen 13 mg/dl (7-17); Calcium 9.6 mg/dl (8.4-10.2); Carbon Dioxide 26 mmol/L (22-30); Chloride 103 mmol/L (98-107); Estimated Creatinine Clearance 75 ml/min; Glucose 103 mg/dl (70-99); Magnesium 1.9 mg/dl (1.6-2.3); Potassium 3.9 mmol/L (3.5-5.1); Sodium 138 mmol/L (135-145); Total Bilirubin 0.3 mg/dl (0.2-1.3); eGFR > 60.00
[2023-12-14 07:00] VITALS: BP 92/62
[2023-12-14] MEDS: HEPARIN SC ×2 (07:54→20:04)
[2023-12-14] MEDS: MIRALAX 17 GRAMS PO (07:54)
--- NOTE | 2023-12-14 09:54 | W.PN.HOSP.TC ---
Today's Communication/Plan
-
see bold
Assessment / Plan
Assessment / Plan
Gen: NAD, AAOx3.
Eyes: EOMI, PERRLA, no scleral icterus.
Neck: supple.
CV: RRR, +S1/S2, no m/r/g.
Resp: CTAB, no rales, wheezes, or rhonchi.
Abd: +BS, soft, NT, ND
Skin: No rashes.
Neuro: CN 2-12 intact, non-focal.
Psych: Normal mood and affect.
12/11/23 16:51 Abscess Wound Culture - Final
Escherichia coli
Klebsiella pneumoniae
Enterococcus faecalis
Group G Streptococcus
12/11/23 16:51 Abscess Gram Stain - Final
12/09/23 22:01 Blood/Venous Blood Culture - Preliminary
No Growth in 4 days- Final report to follow
12/09/23 22:01 Blood/Venous Blood Culture - Preliminary
No Growth in 4 days- Final report to follow
12/09/23 17:41 Urine Urine Culture - Final
Group G Streptococcus
CT A/P: Although evaluation MARKEDLY LIMITED as a result of marked paucity of intra-abdominal fat and lack of oral contrast, findings are at least suspicious for a crescentic abnormal focal fluid collection such as an abscess involving the posterior
perirectal soft tissues extending midline and to the left measuring at least 5 cm in greatest dimension. Left lower quadrant ostomy. Mild hepatomegaly.
Recurrent perirectal abscess:
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
-CT A/P above
-s/p IR drainage on 12/11/23, KORTNEY drain in place
-culture data above
-cont Zosyn as per ID
-change dilaudid to PO
Other problems:
Group G strep in urine not significant as she has rectal drainage plus already being treated
Medical marijuana user
Severe protein calorie malnutrition
FULL/SCDs
Anticipated Discharge: 24 - 48 hours
Subjective/Interval History
-
Date of Service: December 14, 2023
No new complaints.
Objective Data
-
Labs:
Laboratory Results
12/14/23
05:50
WBC 7.0
Hgb 11.0 L
Hct 33.3 L
Plt Count 314
Sodium 138
Potassium 3.9
Chloride 103
Carbon Dioxide 26
BUN 13
Creatinine 0.5 L
Glucose 103 H
Calcium 9.6
Total Bilirubin 0.3
AST 15
ALT 10
Alkaline Phosphatase 68
Vital Signs:
Vital Signs
Temp Pulse Resp BP Pulse Ox
98.6 F 79 17 92/62 100
12/14/23 07:00 12/14/23 07:00 12/14/23 07:00 12/14/23 07:00 12/14/23 07:00
I&O
12/13/23 12/14/23 12/15/23
06:59 06:59 06:59
Intake Total 900 / 900 1510 / 1510
Output Total 50 / 50 35 / 35
Balance 850 / 850 1475 / 1475
--- NOTE | 2023-12-14 11:19 | W.PN.UPDATE ---
Update Note
Progress Note Update
Patient is doing well, states that the Remeron is helping with her sleep, too early to assess if it woyld help with depression. She admits to anhedonia but denies hopelessness or suicidal thoughts.
For now I would continue the Remeron 7.5 hs.
Supportive psychotherapy would also help.
--- NOTE | 2023-12-14 11:50 | W.PN.ID1 ---
Date of Service
Date of Service: December 14, 2023
Today's Communication
Continue Zosyn.
Assessment / Plan
# Recurrent peterson-rectal abscess
# Stage IIIa anal ca, hx chemoradiation x 2; for eventual APR
# h/o diverting colostomy
# Cachexia
- 12/10 s/p IR perc drainage abscess
Cx: E. coli, Klebsiella, Group G Strep, Enterococcus
- Questionable PCN allergy. Pt agreeable to trial of PCN challenge here.
Pt tolerating Zosyn thus far. Continue Zosyn (d2).
- HIV screen pending
Chief Complaint
-: Other (perirectal abscess)
Subjective / Review of Systems
Tolerating Zosyn.
Vital Signs / Physical Exam
Vital Signs
Vital Signs
Temp Pulse Resp BP Pulse Ox
98.6 F 79 17 92/62 100
12/14/23 07:00 12/14/23 07:00 12/14/23 07:00 12/14/23 07:00 12/14/23 07:00
Physical Exam
Constitutional: Cachetic
Pulmonary: Clear
Gastrointestinal: Soft and Non Tender
Neurological: AO x 3
Objective Data
Lab Data
Lab Results
12/14/23 05:50
12/14/23 05:50
Estimated Creat Clear 75 ml/min 12/14/23 05:50
Total Bilirubin 0.3 mg/dl (0.2-1.3) 12/14/23 05:50
AST 15 U/L (14-36) 12/14/23 05:50
ALT 10 U/L (0-35) 12/14/23 05:50
Alkaline Phosphatase 68 U/L (38-126) 12/14/23 05:50
Most recent labs reviewed.
Micro Results:
12/11/23 16:51 Wound Culture - Final
Abscess Escherichia coli
Klebsiella pneumoniae
Enterococcus faecalis
Group G Streptococcus
Gram Stain - Final
12/09/23 22:01 Blood Culture - Preliminary
Blood/Venous No Growth in 4 days- Final report to follow
12/09/23 22:01 Blood Culture - Preliminary
Blood/Venous No Growth in 4 days- Final report to follow
12/09/23 17:41 Urine Culture - Final
Urine Group G Streptococcus
12/09/23 CT a/p: findings are at least suspicious for a crescentic abnormal focal fluid collection such as an abscess involving the posterior perirectal soft tissues extending midline and to the left measuring at least 5 cm in greatest dimension.
[2023-12-14] MEDS: DILAUDID 2 MG PO ×2 (12:48→20:03)
--- NOTE | 2023-12-14 13:22 | W.PN.CRS1 ---
Today's Communication / Plan
-
abx per ID
continue drain
dispo per primary team
Assessment/Plan
-
52-year-old female with PMH of anal squamous cell cancer s/p laparoscopic sigmoid loop colostomy for a perforated cancer with SIDEWALK REPAIRER in 2021 (stopped just prior to finishing d/t weight loss and delay d/t equipment malfunction) complicated by recurrence
in 2022 with additional SIDEWALK REPAIRER; stopped since July 2023 as she reported poor tolerance. Initially, followed at [facility] and later [place]. She has had worsening perianal pain as well as recurrent pelvic abscess which have been previously treated with
antibiotics, most recently at [place] earlier this month.
She is now transitioning her care to with Dr. Healy and Dr. Stephens and was undergoing outpatient work up when she presented through the ED with worsening pelvic/back pain. CT showing crescent shaped posterior sacral fluid collection about 5 cm x
2 cm; on her last CT at [place] on 11/18/23, this was described as a necrotic tumor with 6.5x6cm collection.
Now PPD #3 IR drainage of abscess with reported relief in symptoms.
No acute surgical intervention currently indicated; definitive surgery will need to be coordinated between multiple specialties (CRS, Viscosity Worker Onc and plastics), will likely be done as outpatient/scheduled basis
AFVSS
Labs stable, no leukocytosis or fevers
Pain improving
�Continue IR drain, daily flushes.
�Continue with IV antibiotics, ID following. On Zosyn.
�Continue regular diet with addition of supplements. Dietary consult
- Psychiatry consult
� DVT PPx with subQ heparin
� Analgesics prn
� Okay for d/c to home from our perspective. Will need outpatient discussion with Dr. Healy for arrangement of surgery. Mona Macedo, nurse navigator, following.
Subjective Data
Procedure
IR drain: 12/11/2023
Subjective Data
Date of Service: December 14, 2023
Patient states her pain has improved somewhat after the drain has been placed. She is eating a diet. She has no nausea or vomiting. She is able to urinate without difficulty. Her ostomy is functioning.
Objective Data
-
Vital Signs
Temp Pulse Resp BP Pulse Ox
98.6 F 79 17 92/62 100
12/14/23 07:00 12/14/23 07:00 12/14/23 07:00 12/14/23 07:00 12/14/23 07:00
Intake & Output
12/13/23 12/14/23 12/15/23
06:59 06:59 06:59
Intake Total 900 / 900 1520 / 1520
Output Total
Balance 850 / 850 1485 / 1485
Intake:
Oral fluids 900 / 900 1410 / 1410
IV piggybacks 100 / 100
Amount instilled into Drain (
Total)
Left Middle Sacrum Mina-
Degroot A Placed in IR
Output:
Drain Output (Total)
Left Middle Sacrum Mina-
Degroot A Placed in IR
Other:
Number of approximated MODERATE 2 2
amounts of urine
Number of approximated LARGE 4
amounts of urine
Number of unmeasured liquid
stools
Colostomy 1
Lab Results
12/14/23 05:50
12/14/23 05:50
Physical Exam
-
General: No Acute Distress and AOx3
Abdomen: Soft, Non Distended and Non Tender
Rectal: Other (Drain with murky light gardner output)
Skin: Warm and Dry
[2023-12-14 15:00] VITALS: BP 92/52
--- NOTE | 2023-12-14 15:33 | PTCARENOTE ---
Report called to Farhat DUNN on [facility]. Pt transported via stretcher to Room 2102 @ 15:35
[2023-12-14 15:45] VITALS: BP 93/59
--- NOTE | 2023-12-14 16:03 | PTCARENOTE ---
Pt recieved as transfer into 2101. Pt ambulated into room, AOx3, pleasant/cooperative, in no distress. Oriented to new room. Minimal pain at this time. Given tea and crackers at her request.
[2023-12-14] MEDS: NSS 1000 IV (16:32)
[2023-12-14] MEDS: REMERON 7.5 MG PO (21:08)
[2023-12-14 23:00] VITALS: BP 103/59
[2023-12-15] MEDS: ZOSYN 50 IV ×4 (03:10→21:51)
[2023-12-15] MEDS: DILAUDID 2 MG PO ×4 (03:10→22:00)
[2023-12-15 07:00] VITALS: BP 117/71
[2023-12-15] MEDS: HEPARIN SC ×2 (07:43→20:00)
[2023-12-15] MEDS: MIRALAX 17 GRAMS PO (07:46)
[2023-12-15] MEDS: MOTRIN 400 MG PO ×2 (07:52→20:15)
--- NOTE | 2023-12-15 08:06 | W.PN.HOSP.TC ---
Today's Communication/Plan
-
see bold
Assessment / Plan
Assessment / Plan
Gen: NAD, AAOx3, appears chronically ill and malnourished.
Eyes: EOMI, PERRLA, no scleral icterus.
Neck: supple.
CV: remains RRR, +S1/S2, no m/r/g.
Resp: remains CTAB, no rales, wheezes, or rhonchi.
Abd: +BS, soft, NT, ND
Skin: No rashes.
Neuro: CN 2-12 intact, non-focal.
Psych: Normal mood and affect.
12/09/23 22:01 Blood/Venous Blood Culture - Final
No Growth - Final Report
12/09/23 22:01 Blood/Venous Blood Culture - Final
No Growth - Final Report
12/11/23 16:51 Abscess Wound Culture - Final
Escherichia coli
Klebsiella pneumoniae
Enterococcus faecalis
Group G Streptococcus
12/11/23 16:51 Abscess Gram Stain - Final
12/09/23 17:41 Urine Urine Culture - Final
Group G Streptococcus
CT A/P: Although evaluation MARKEDLY LIMITED as a result of marked paucity of intra-abdominal fat and lack of oral contrast, findings are at least suspicious for a crescentic abnormal focal fluid collection such as an abscess involving the posterior
perirectal soft tissues extending midline and to the left measuring at least 5 cm in greatest dimension. Left lower quadrant ostomy. Mild hepatomegaly.
Recurrent perirectal abscess:
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
-CT A/P above
-s/p IR drainage on 12/11/23, KORTNEY drain in place
-culture data above
-cont Zosyn as per ID
-as per surgery, definitive surgical intervention will be done as an outpatient. Will require multiple specialties (CRS/WOOD CARVING LATHE OPERATOR-ONC/plastics).
Other problems:
Group G strep in urine not significant as she has rectal drainage plus already being treated
Medical marijuana user
Severe protein calorie malnutrition
FULL/SCDs
Anticipated Discharge: 24 - 48 hours
Subjective/Interval History
-
Date of Service: December 15, 2023
No new complaints.
Objective Data
-
Vital Signs:
Vital Signs
Temp Pulse Resp BP Pulse Ox
98.6 F 78 18 117/71 100
12/15/23 07:00 12/15/23 07:00 12/15/23 07:00 12/15/23 07:00 12/15/23 07:00
I&O
12/14/23 12/15/23 12/16/23
06:59 06:59 06:59
Intake Total 1520 / 1520 650 / 650
Output Total 60 / 60 100 / 100
Balance 1460 / 1460 550 / 550
--- NOTE | 2023-12-15 10:27 | W.PN.ID1 ---
Date of Service
Date of Service: December 15, 2023
Today's Communication
At time of discharge, transition to Augmentin 875mg po bid - 4 week course.
Assessment / Plan
# Recurrent peterson-rectal abscess
# Stage IIIa anal ca, hx chemoradiation x 2; for eventual APR
# h/o diverting colostomy
# Cachexia
- 12/10 s/p IR perc drainage abscess
Cx: E. coli, Klebsiella, Group G Strep, Enterococcus
- Unlikely PCN allergy Pt tolerating Zosyn (d3)
At time of discharge, transition to Augmentin 875mg po bid - 4 week course.
- HIV screen pending
Chief Complaint
-: Other (perirectal abscess)
Subjective / Review of Systems
Per nurse, she just emptied 30cc of brown purulent fluid.
Patient reports still with significant pain.
No reaction to Zosyn.
Vital Signs / Physical Exam
Vital Signs
Vital Signs
Temp Pulse Resp BP Pulse Ox
98.6 F 78 18 117/71 100
12/15/23 07:00 12/15/23 07:00 12/15/23 07:00 12/15/23 07:00 12/15/23 08:00
Physical Exam
Constitutional: No Acute Distress and Cachetic
Pulmonary: Clear
Gastrointestinal: Soft, Non Tender and Non Distended
Neurological: AO x 3
Objective Data
Lab Data
Lab Results
12/14/23 05:50
12/14/23 05:50
Estimated Creat Clear 75 ml/min 12/14/23 05:50
Total Bilirubin 0.3 mg/dl (0.2-1.3) 12/14/23 05:50
AST 15 U/L (14-36) 12/14/23 05:50
ALT 10 U/L (0-35) 12/14/23 05:50
Alkaline Phosphatase 68 U/L (38-126) 12/14/23 05:50
Most recent labs reviewed.
Micro Results:
12/09/23 22:01 Blood Culture - Final
Blood/Venous No Growth - Final Report
12/09/23 22:01 Blood Culture - Final
Blood/Venous No Growth - Final Report
12/11/23 16:51 Wound Culture - Final
Abscess Escherichia coli
Klebsiella pneumoniae
Enterococcus faecalis
Group G Streptococcus
Gram Stain - Final
12/09/23 17:41 Urine Culture - Final
Urine Group G Streptococcus
12/09/23 CT a/p: findings are at least suspicious for a crescentic abnormal focal fluid collection such as an abscess involving the posterior perirectal soft tissues extending midline and to the left measuring at least 5 cm in greatest dimension.
--- NOTE | 2023-12-15 11:34 | W.PN.CRS1 ---
Today's Communication / Plan
-
okay for d/c home from our perspective
f/u with outpatient Dr. Healy, Dr. Hood, Dr. Stephens
continue antibiotics per ID
reschedule colonoscopy as an outpatient
Assessment/Plan
-
52-year-old female with PMH of anal squamous cell cancer s/p laparoscopic sigmoid loop colostomy for a perforated cancer with SPIRITS MODEL in 2021 (stopped just prior to finishing d/t weight loss and delay d/t equipment malfunction) complicated by recurrence
in 2022 with additional SPIRITS MODEL; stopped since July 2023 as she reported poor tolerance. Initially, followed at [facility] and later [place]. She has had worsening perianal pain as well as recurrent pelvic abscess which have been previously treated with
antibiotics, most recently at [place] earlier this month.
She is now transitioning her care to with Dr. Healy and Dr. Stephens and was undergoing outpatient work up when she presented through the ED with worsening pelvic/back pain. CT showing crescent shaped posterior sacral fluid collection about 5 cm x
2 cm; on her last CT at [facility] on 11/18/23, this was described as a necrotic tumor with 6.5x6cm collection.
Now PPD #4 IR drainage of abscess with reported relief in symptoms.
No acute surgical intervention currently indicated; definitive surgery will need to be coordinated between multiple specialties (CRS, Water Use Inspector Onc and plastics), will likely be done as outpatient/scheduled basis
AFVSS
Labs stable, no leukocytosis or fevers
Pain improving
�Continue IR drain, daily flushes.
�Continue with IV antibiotics, ID following. On Zosyn.
�Continue regular diet with addition of supplements.
-Psychiatry consult
�DVT PPx with subQ heparin
�Analgesics prn
�Okay for d/c to home from our perspective. Will need outpatient discussion with Dr. Healy for arrangement of surgery. Mona Macedo, nurse navigator, following. We spoke to her regarding her appointments with Dr. Stephens and Dr. Hood (December 20).
I will also leave some referrals for pain management specialists in her discharge instructions. Follow up with Dr. Healy for surgery discussion in a few weeks. Her outpatient colonoscopy was also scheduled for today, which has been canceled. I have
reached out to our space scheduler to reschedule her.
Subjective Data
Procedure
IR drain: 12/11/2023
Subjective Data
Date of Service: December 15, 2023
Patient states her pain is much less. She has no nausea or vomiting. She is urinating and has stool output from her stoma. She is tolerating a diet.
Objective Data
-
Vital Signs
Temp Pulse Resp BP Pulse Ox
98.6 F 78 18 117/71 100
12/15/23 07:00 12/15/23 07:00 12/15/23 07:00 12/15/23 07:00 12/15/23 08:00
Intake & Output
12/14/23 12/15/23 12/16/23
06:59 06:59 06:59
Intake Total 1520 / 1520 650 / 650
Output Total 60 / 60 100 / 100 30 / 30
Balance 1460 / 1460 550 / 550 -20 / -20
Intake:
Oral fluids 1410 / 1410 300 / 300
IV fluids (Total) 240 / 240
IV piggybacks 100 / 100 100 / 100
Amount instilled into Drain (
Total)
Left Middle Sacrum Mina-
Degroot A Placed in IR
Output:
Drain Output (Total) 60 / 60 100 / 100 30 / 30
Left Middle Sacrum Mina- 60 / 60 100 / 100 30 / 30
Degroot A Placed in IR
Other:
Number of approximated MODERATE 2 2
amounts of urine
Number of unmeasured liquid
stools
Colostomy 1
Lab Results
12/14/23:50
12/14/23 05:50
Physical Exam
-
General: No Acute Distress and AOx3
Abdomen: Soft, Non Distended and Non Tender
Rectal: Other (rectal drain with beige output)
Skin: Warm and Dry
[2023-12-15 13:26] LABS: HIV Combo Negative (Negative)
--- NOTE | 2023-12-15 14:24 | CM ---
Met with patient. Discussed discharge plan of care. She would like [facility] for wound care and a social service evaluation for additional services ie: disability etc. [facility] referral forwarded.
[2023-12-15 15:00] VITALS: BP 132/71
--- NOTE | 2023-12-15 15:35 | W.PN.UPDATE ---
Update Note
Progress Note Update
Pt seen, chart reviewed. Pt states Remeron is helping with sleep. She had tried OTC remedies without benefit. Pt has continued pain which wakes at 3 am, but overall doing better. Denies side effects. Pt alert, oriented, calm, with stable affect,
no active distress, watching TV.
Imp: Adjustment d/o with depression,anxiety, insomnia, improving on Remeron 7.5 mg HS
Rec: Continue current dose of Remeron 7.5 mg HS
Psychiatry will sign off
[2023-12-15] MEDS: NSS 1000 IV (16:29)
[2023-12-15] MEDS: COLACE 100 MG PO (20:16)
[2023-12-15] MEDS: REMERON 7.5 MG PO (21:48)
[2023-12-15 23:00] VITALS: BP 115/81
[2023-12-16] MEDS: ZOSYN 50 IV ×2 (04:26→13:51)
[2023-12-16 08:15] VITALS: BP 109/62
--- NOTE | 2023-12-16 08:22 | W.PN.HOSP.TC ---
Today's Communication/Plan
-
d/c
Assessment / Plan
Assessment / Plan
Gen: NAD, AAOx3, appears chronically ill and malnourished.
Eyes: EOMI, PERRLA, no scleral icterus.
Neck: supple.
CV: remains RRR, +S1/S2, no m/r/g.
Resp: remains CTAB, no rales, wheezes, or rhonchi.
Abd: +BS, soft, NT, ND
Skin: No rashes.
Neuro: CN 2-12 intact, non-focal.
Psych: Normal mood and affect.
12/09/23 22:01 Blood/Venous Blood Culture - Final
No Growth - Final Report
12/09/23 22:01 Blood/Venous Blood Culture - Final
No Growth - Final Report
12/11/23 16:51 Abscess Wound Culture - Final
Escherichia coli
Klebsiella pneumoniae
Enterococcus faecalis
Group G Streptococcus
12/11/23 16:51 Abscess Gram Stain - Final
12/09/23 17:41 Urine Urine Culture - Final
Group G Streptococcus
CT A/P: Although evaluation MARKEDLY LIMITED as a result of marked paucity of intra-abdominal fat and lack of oral contrast, findings are at least suspicious for a crescentic abnormal focal fluid collection such as an abscess involving the posterior
perirectal soft tissues extending midline and to the left measuring at least 5 cm in greatest dimension. Left lower quadrant ostomy. Mild hepatomegaly.
Recurrent perirectal abscess:
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
-CT A/P above
-s/p IR drainage on 12/11/23, KORTNEY drain in place
-culture data above
-cont Zosyn as per ID (transition to 4 weeks Augmentin on discharge)
-as per surgery, definitive surgical intervention will be done as an outpatient. Will require multiple specialties (CRS/SEXUAL ASSAULT NURSE-ONC/plastics).
Other problems:
Group G strep in urine not significant as she has rectal drainage plus already being treated
Medical marijuana user
Severe protein calorie malnutrition
FULL/SCDs
Total time spent on d/c = 31 min. This included today's physical exam, progress note, review of laboratory and diagnostic data, preparation of discharge documents and prescriptions, and discussions about the pt's hospital course and discharge plan
with the patient and other medical lab technician involved in the patient's care.
Anticipated Discharge: Today
Subjective/Interval History
-
Date of Service: December 16, 2023
No new complaints.
Objective Data
-
Vital Signs:
Vital Signs
Temp Pulse Resp BP Pulse Ox
99.3 F 78 18 109/62 97
12/16/23 08:15 12/16/23 08:15 12/16/23 08:15 12/16/23 08:15 12/16/23 08:15
I&O
12/15/23 12/16/23 12/17/23
06:59 06:59 06:59
Intake Total 650 / 650 1230 / 1230
Output Total 100 / 100 145 / 145
Balance 550 / 550 1085 / 1085
[2023-12-16] MEDS: DILAUDID 2 MG PO ×2 (08:25→13:55)
[2023-12-16] MEDS: TYLENOL 650 MG PO (08:25)
[2023-12-16] MEDS: HEPARIN 5000 UNITS SC (08:27)
[2023-12-16] MEDS: MIRALAX 17 GRAMS PO (08:27)
[2023-12-16 08:55] LABS: Hematocrit 31.5 % (37.0-47.0); Hemoglobin 10.2 g/dL (12.0-16.0); Mean Corp Hgb Conc. 32.4 g/dL (33.0-37.0); Mean Corpuscular Hgb 30.4 pg (27.0-31.0); Mean Platelet Volume 8.5 fL (7.4-10.4); Platelet Count 341 10^3/uL (130-400); Red Blood Cell Count 3.35 10^6/uL (4.20-5.40); Red Cell Dist. Width 14.1 % (11.5-14.5); White Blood Cell Count 8.5 10^3/uL (4.8-10.8)
[2023-12-16 09:21] LABS: Blood Urea Nitrogen 9 mg/dl (7-17); Calcium 9.5 mg/dl (8.4-10.2); Carbon Dioxide 28 mmol/L (22-30); Chloride 105 mmol/L (98-107); Estimated Creatinine Clearance 75 ml/min; Glucose 90 mg/dl (70-99); Potassium 4.5 mmol/L (3.5-5.1); Sodium 138 mmol/L (135-145); eGFR > 60.00
[2023-12-16] MEDS: ZOSYN IV (11:02)
[2023-12-16 11:30] VITALS: BP 104/72
--- NOTE | 2023-12-16 12:25 | VNURNOTE ---
Home Health Liaison met with patient at 1130 to discuss [facility] nurse visits, schedule and homebound status. Patient is agreeable and understands that visits at home will be 2-3 x per week to assess and teach medical management, wound and KORTNEY drain
care.
[facility] brochure provided with contact information. Patient is aware that [facility] will contact her for start of care in 1-2 days after discharge from .
[facility] referral completed in [facility].
--- NOTE | 2023-12-16 13:00 | CM ---
Patient has been medically cleared for discharge to home with [facility] for wound care and nephrology social worker evaluation. RN instructing patient on drain flushes. Script for NSS flushes given to patient. Patient arranged for transport home.
--- NOTE | 2023-12-16 14:04 | PTCARENOTE ---
Rn-Flow facilitor-white sheet taken to pharmacy. Counted pills and found 59, cosigned with Mehrdad pharmacist. Medications placed in locked box with primary nurse Winifred.
--- NOTE | 2023-12-16 14:11 | W.DCSUMMARY ---
Discharge Summary
Discharge Data
Date of Admission: 12/09/23
Date of Discharge: 12/16/23
-
Pending Results: No
Hospital Course
Primary diagnoses:
Recurrent perirectal abscess
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
Secondary diagnoses:
Medical marijuana user
Severe protein calorie malnutrition
Consultants:
Colorectal surgery
Psychiatry
Infectious disease
Interventional radiology
Imaging:
CT A/P: Although evaluation MARKEDLY LIMITED as a result of marked paucity of intra-abdominal fat and lack of oral contrast, findings are at least suspicious for a crescentic abnormal focal fluid collection such as an abscess involving the posterior
perirectal soft tissues extending midline and to the left measuring at least 5 cm in greatest dimension. Left lower quadrant ostomy. Mild hepatomegaly.
Hospital course: 53-year-old female who presented with chief complaint of rectal pain and rectal drainage as outlined in H&P done on admission. The patient had a h/o anal cancer s/p ostomy in 2021 with h/o perirectal fistula. Imaging above notable
for abnormal fluid collection such as an abscess involving the posterior perirectal soft tissues extending midline into the left measuring least 5 cm in greatest dimension. The patient underwent drainage by interventional radiology of her abscess
on December 11, 2023. A KORTNEY drain was placed and remained in place on discharge. Abscess culture was polymicrobial and grew E. coli, Klebsiella, Enterococcus, group G strep. Patient received Zosyn while hospitalized and was discharged on 4 weeks of
Augmentin. As per surgery, definitive surgical intervention will be done as an outpatient. Will require multiple specialties (CRS/RADIO SURVEY WORKER-ONC/plastics).
Discharge Plan
-
Patient Disposition: Home (Routine Discharge)
Discharge Diagnosis/Procedures: Recurrent perirectal abscess s/p drainage
Condition: Good
Diet: No restrictions
Activity: As tolerated
Driving Restrictions: Not until seen by your Dr
Bathing Restrictions: None
Wound Care: Flush drain daily with 0.9% sterile normal flush with 10ml daily.
Keep a log of output daily.
Activity Restrictions/Additional Instructions:
[facility] [place]: [phone]
Dr. Nigel Skinner MD in [place]:
Instructions: How to Keep Track of Your Drainage
Referrals:
Del Healy MD [Active] - in two to three weeks
Payton Tee MD [Family Provider] - in less than 1 week
Marito López MD [Active] -
Adam Stephens MD [Active] -
Prescriptions:
New
mirtazapine 7.5 mg Tablet
7.5 mg PO HS Qty: 3 0RF
amoxicillin-pot clavulanate 875-125 mg tablet
1 tab PO BID Qty: 60 0RF
sodium chloride 0.9 % (flush) Syringe
10 ml intra-catheter DAILY Qty: 20 0RF
Continued
polyethylene glycol 3350 [Miralax] 17 gram Powder In Packet
17 g PO DAILY
ibuprofen [Advil Liqui-Gels Minis] 200 mg Capsule
200 mg PO HSPRN PRN (Reason: mild pain)
ibuprofen 200 mg Tablet
400 mg PO BIDPRN PRN (Reason: mild pain)
docusate sodium [Stool Softener] 100 mg Capsule
200 mg PO DAILY@1999
Centrum Adult 50 Plus 80 mcg Tablet,Chewable
2 tab PO DAILY
Discontinued
morphine 15 mg Tablet
15 mg PO QIDPRN PRN (Reason: severe pain)
Discharge Orders:
Discharge Patient (As Directed); Ordered 12/16/23
Ordered By: Vipin Iyer
Discharge Date and Time
Print Language: DANISH
[2023-12-16] MEDS: NSS IV (14:30)
[2023-12-16] MEDS: MOTRIN 400 MG PO (17:01)
== END 2023-12-16 17:25 | disposition home or self-care (01) | DRG 371 ==
LOC: 2 SOUTH 22:16
PROVIDERS: Emergency Medicine; Internal Medicine; Physician Assistant; Radiology Diagnostic Radiology; ADMITTING PHYSICIAN Hospitalist; ATTENDING PHYSICIAN Internal Medicine; CONSULT PHYSICIAN Internal Medicine Infectious Disease; CONSULT PHYSICIAN Surgery; EMERGENCY PHYSICIAN Emergency Medicine; FAMILY PHYSICIAN Student in an Organized Health Care Education/Training Program; OTHER PHYSICIAN Psychiatry & Neurology Psychiatry
PROC: 0W9L30Z Drainage of Lower Back with Drainage Device, Percutaneous Approach (ICD-10-PCS; 2023-12-11)
DX: K68.19 Other retroperitoneal abscess (principal); E43 Unspecified severe protein-calorie malnutrition; F33.1 Major depressive disorder, recurrent, moderate; Z68.1 Body mass index [BMI] 19.9 or less, adult; F17.200 Nicotine dependence, unspecified, uncomplicated; F43.22 Adjustment disorder with anxiety; G47.00 Insomnia, unspecified
CPT/HCPCS: 49406; 74177; 80048; 80053; 81003; 81015; 83735; 85025; 85027; 87040; 87070; 87077; 87086; 87147; 87186; 87205; 87389; 89051; 96361; 96365; 96367; 96375; 99152; 99153; 99285; Q9967

== ENCOUNTER → 2023-12-30 11:40 | Outpatient (REF) | payer OTHER, SELFPAY ==
--- NOTE | 2023-12-30 12:07 | PTCARENOTE ---
Patient arrives to IR with her bulb detached from her transgluteal drain. New stopcock, clave and bulb attached. Her drain is now draining appropriately. A new dressing has been applied. Her site is clean, dry and intact with no s/s of infection.
Patient verbalizes understanding of d/c instructions. Pt will continue to flush and change dressing as previous ordered by her physician and follow up with her doctor
== END ==
LOC: RADI 11:40
PROVIDERS: ATTENDING PHYSICIAN Radiology Vascular & Interventional Radiology; FAMILY PHYSICIAN Physician Assistant Medical
DX: Z46.82 Encounter for fitting and adjustment of non-vascular catheter (principal); K65.1 Peritoneal abscess

== ENCOUNTER → 2024-01-19 10:01 | Outpatient (REF) | payer OTHER, SELFPAY ==
[2024-01-19 10:10] VITALS: BP 128/85; BP_SYST 93
[2024-01-19 10:50] VITALS: BP 115/77
== END ==
LOC: RADI 10:01
PROVIDERS: ATTENDING PHYSICIAN Surgery
DX: Z46.82 Encounter for fitting and adjustment of non-vascular catheter (principal); K65.1 Peritoneal abscess; C80.1 Malignant (primary) neoplasm, unspecified
CPT/HCPCS: 49424; 76080; 88112

== ENCOUNTER 2024-02-09 22:39 | Inpatient (IN) | payer OTHER, SELFPAY ==
[2024-02-09 15:59] VITALS: BP 103/87
--- NOTE | 2024-02-09 17:57 | ED.GENMED ---
History of Present Illness
General
Chief Complaint: Anal/Rectal Problem
Source: patient
Time Seen by Provider: 02/09/24 17:05
History of Present Illness
History of Present Illness:
53-year-old female presents to the emergency room complaining of pain in her rectal/buttock area in the area of a drain that is in place. The patient has had this drain in place since November and it is draining a pelvic collection. Patient concerned
that she has an abscess which is not getting better. She has other areas of pain which she is concerned reflect new areas of infection. Patient denies any fever. Pain is poorly controlled. She sees Dr. Quiros for oncology because she has a
history of squamous cell cancer of the anus. She has had surgery for this back in 2021 followed by radiation therapy. She had a recurrence in 2022 treated with additional radiation. When seen here in November there was concern that this collection was
not necessarily an abscess but could be a necrotic tumor. Patient was recommended to have an extensive resection but patient has not scheduled this procedure yet because she does not believe 1 can have a operation with an acute infection. Patient
was recently seen in the interventional radiology department where she had a imaging study of the drain and collection. The collection has not improved and continues to drain significant amount of purulent fluid. This fluid was sent for cytology
and is positive for malignant cells. Interventional radiologist felt the patient does not have an acute infection but rather has drainage from necrosis of the tumor.
Past History
Past History
ED Past Medical History: Other (Anal cancer) and Other (autism)
ED Past Surgical History: Orthopedic (carpal tunnel surgery) and Other (Colostomy)
Social History
Tobacco: Non-smoker
Alcohol: None
Drug: None
Phy Exam
Physical Exam
Physical Exam:
General: Awake, Alert, Oriented X3. Very thin, appears uncomfortable
Vitals: Afebrile, tachycardic
Head: Atraumatic
Eyes: Pupils equal, EOMI
Throat: Airway intact, no exudates
Neck: Trachea midline
Lungs: Clear and equal b/l
Heart: Regular rate, no murmurs
Abd: Soft, Nontender, No pulsatile mass
Rectal: External hemorrhoids, drain noted in the buttock on the left. Collection device filled with grayish fluid.
Neuro: Nonfocal
Skin: Warm, dry, no rash
Extremities: pulses equal b/l, no edema
Course
Orders/Labs/Results
Orders:
Orders
02/09/24 17:37
CT Abd/pel W Iv And Oral Contr Urgent
Comment:
Reason For Exam: increaasing rectal and abd pain
0.9% Sodium Chloride 1000 ml [Nss] 1,000 ml IV BOLUS
HYDROmorphone [Dilaudid] 1 mg IV NOW STA
Iohexol [Omnipaque] See Protocol PO NOW STA
02/09/24 18:07
Complete Blood Count/With Diff Urgent
Comprehensive Metabolic Panel Urgent
02/09/24 20:55
HYDROmorphone [Dilaudid] 1 mg IV NOW STA
02/09/24 22:11
Admit/Transfer Patient As Directed
Co-Sign Provider:
Level of Care: Inpatient admission
Assign to:: Medical/Surgical
Physician / Group: amarilis
Diagnosis: persistent pelvic fluid collection
Reason for Hospitalization: persistent pelvic fluid collection
Expected length of stay greater than two midnights?: Yes
ELOS- Estimated Length of Stay in days: 2
I certify the patient meets the requirements for IP care: Yes
02/09/24 22:12
Code Status As Directed
Resuscitation Status: Full Code
02/09/24 23:00
Flush (0.9% Sodium Chloride) [Flush (Nss)] See Dose Instructions IV PER PROTOCOL
Abnormal Lab Results
02/09/24
18:07
RBC 3.83 L 10^6/uL
(4.20-5.40)
Hgb 11.2 L g/dL
(12.0-16.0)
Hct 33.3 L %
(37.0-47.0)
Absolute Neuts (auto) 7.1 H 10^3/uL
(1.4-6.5)
Absolute Lymphs (auto) 0.6 L 10^3/uL
(1.2-3.4)
Absolute Eos (auto) 1.2 H 10^3/uL
(0-0.7)
Lymphocytes % 6.7 L %
(20.5-51.1)
Eosinophils % 12.5 H %
(0-6)
BUN 18 H mg/dl
(7-17)
Glucose 104 H mg/dl
(70-99)
02/09/24 18:07
02/09/24 18:07
Vital Signs
Initial and Last Documented VS:
Initial Vital Signs
Temp Pulse Resp BP Pulse Ox
98.4 F 131 20 103/87 98
02/09/24 15:59 02/09/24 15:59 02/09/24 15:59 02/09/24 15:59 02/09/24 15:59
Last Documented Vital Signs
Temp Pulse Resp BP Pulse Ox
98.4 F 86 17 109/73 99
02/09/24 18:14 02/09/24 22:00 02/09/24 22:00 02/09/24 22:00 02/09/24 20:36
MDM/Problems Addressed
Differential Diagnosis Includes:
abscess, necrotic mass, perf, obstruction
MDM/Problems Addressed:
Patient presents with persistent pain, persistent drainage in her catheter. Discussed patient's presentation with Dr. Sawant as she is complicated. Ultimately we agreed to obtain a CT with oral and IV contrast. This shows persistent fluid
collection with the leading thing on the differential necrotic tumor. Given patient's persistent pain and complexity we will hospitalize the patient overnight for multi disciplinary approach to the best treatment. At the same the patient is
convinced that the drainage has to be related to an infection. I tried to explain to her the possibility that the drainage is not from an acute infection but rather from necrosis of tumor. The fact that there are some positive cultures may reflect
colonization rather than the fact it is the primary infection and that the ultimate treatment is to potentially have the extensive resection recommended by Dr. Healy. Patient is apprehensive to have surgery if she has an active infection.
*Radiology
Radiology exam reviewed: radiology read reviewed
*Critical Care Note
Total Time (30-74mins, 75-104mins- exclusive of procedures): Not Applicable
ED Attending Note
-
Portions of this chart may have been created with voice recognition software.� Occasional wrong word or��sound alike� substitutions may have occurred due to the inherent limitations of voice recognition software.
Discharge Plan
Departure
Patient Disposition: Admit
Date of Disposition: 02/09/24
Time of Disposition: 21:31
Admit to: Med/Surg
Presentation/result/management discussed w/ accepting MD/DO: Hospitalist
Condition: Fair
Discharge Problem:
Pelvic fluid collection, Anal squamous cell carcinoma
Prescriptions:
No Action
polyethylene glycol 3350 [Miralax] 17 gram Powder In Packet
17 g PO DAILY
ibuprofen [Advil Liqui-Gels Minis] 200 mg Capsule
200 mg PO HSPRN PRN (Reason: mild pain)
ibuprofen 200 mg Tablet
400 mg PO BIDPRN PRN (Reason: mild pain)
docusate sodium [Stool Softener] 100 mg Capsule
200 mg PO HS
Centrum Adult 50 Plus 80 mcg Tablet,Chewable
2 tab PO DAILY
sodium chloride 0.9 % (flush) Syringe
10 ml intra-catheter DAILY Qty: 20 0RF
morphine 15 mg tablet
15 mg PO QIDPRN PRN (Reason: moderate to severe pain)
Patient Comments:
02/09/2024: last filled 12/23/23, 120 tabs for 30 days from [facility]
Referrals:
Sabine Ho PA-C [Family Provider] -
Discharge Date and Time
Print Language: GIBRALTARIAN
[2024-02-09] MEDS: DILAUDID 1 MG IV ×2 (18:04→21:35)
[2024-02-09] MEDS: OMNIPAQUE 50 ML PO (18:05)
[2024-02-09] MEDS: NSS 1000 IV (18:05)
[2024-02-09 18:15] LABS: % Basophils 0.4 % (0-2); % Eosinophils 12.5 % (0-6); % Immature Granulocytes 0.2 % (0-0.5); % Lymphocytes 6.7 % (20.5-51.1); % Monocytes 5.8 % (1.7-9.3); % Neutrophils 74.4 % (42.2-75.2); Absolute Eosinophils 1.2 10^3/uL (0-0.7); Absolute Lymphocytes 0.6 10^3/uL (1.2-3.4); Absolute Monocytes 0.6 10^3/uL (0.1-0.6); Absolute Neutrophils 7.1 10^3/uL (1.4-6.5); Hematocrit 33.3 % (37.0-47.0); Hemoglobin 11.2 g/dL (12.0-16.0); Mean Corp Hgb Conc. 33.6 g/dL (33.0-37.0); Mean Corpuscular Hgb 29.2 pg (27.0-31.0); Mean Corpuscular Volume 86.9 fL (81.0-99.0); Mean Platelet Volume 8.4 fL (7.4-10.4); Nucleated Red Blood Cells % 0 %; Platelet Count 350 10^3/uL (130-400); Red Blood Cell Count 3.83 10^6/uL (4.20-5.40); Red Cell Dist. Width 14.5 % (11.5-14.5); White Blood Cell Count 9.6 10^3/uL (4.8-10.8)
[2024-02-09 18:34] LABS: ALT (SGPT) 11 U/L (0-35); AST (SGOT) 16 U/L (14-36); Albumin 3.5 g/dl (3.5-5.0); Alkaline Phosphatase 85 U/L (38-126); Blood Urea Nitrogen 18 mg/dl (7-17); Calcium 9.6 mg/dl (8.4-10.2); Carbon Dioxide 27 mmol/L (22-30); Chloride 104 mmol/L (98-107); Glucose 104 mg/dl (70-99); Potassium 4.4 mmol/L (3.5-5.1); Sodium 138 mmol/L (135-145); Total Bilirubin 0.3 mg/dl (0.2-1.3); Total Protein 6.3 g/dl (6.3-8.2); eGFR > 60.00
[2024-02-09 19:40] VITALS: BP 103/72
[2024-02-09 19:42] VITALS: BP 103/72
[2024-02-09 22:00] VITALS: BP 109/73
--- NOTE | 2024-02-09 22:14 | HPS.HSE ---
Family Physician
-
Family Physician: Sabine Ho PA-C
Chief Complaint
-
pelvic pain
History of Present Illness
53-year-old female past medical history of recurrent perirectal abscess, anal squamous cell cancer status post ostomy 2021 status post radiation with history of perirectal fistula, medical marijuana user, presenting with pain in her rectal/buttock
area in the area of the drain that is in place. Pain has been worsening over time since drain was placed. She has been having chills but denies any fever. She had some diarrhea over the weekend which has resolved. She has nausea and dry heaving
without vomiting.
Patient was recently admitted at the end of November for perirectal abscess status post IR drainage. KORTNEY drain was placed. Patient was treated with Zosyn and discharged on 4 weeks of Augmentin. Definitive surgical intervention was recommended as
outpatient.
Imaging study of the fluid collection on January 18 showed persistent moderate-sized fluid-filled cavity and given persistent high volume output this is favored to represent necrotic tumor rather than abscess. Later in January of last week results of the
fluid from the drainage were positive for malignant cells consistent with squamous cell carcinoma.
Medical History
Past Medical History
Past Medical History: Reports Other (recurrent perirectal abscess, anal squamous cell cancer status post ostomy 2021 status post radiation with history of perirectal fistula, medical marijuana user)
Past Surgical History: Reports None
Social History
Tobacco: Non-smoker
Alcohol: None
Drug: Marijuana
Family History
Family History: Not pertinent
Allergies / Home Medications
Allergies reflects when Allergies were last updated in [employer].
Home Medications with original date entered in [employer]
Allergy/Medication List:
Allergies
Allergy/AdvReac Type Severity Reaction Status Date / Time
No Known Allergies Allergy Unverified 02/09/24 16:01
Home Medications
docusate sodium 100 mg capsule (Stool Softener) 200 mg PO HS Constipation 12/09/23
ibuprofen 200 mg capsule (Advil Liqui-Gels Minis) 200 mg PO HSPRN PRN mild pain 12/09/23
ibuprofen 200 mg tablet 400 mg PO BIDPRN PRN mild pain 12/09/23
multivitamin with minerals-folic acid 80 mcg chewable tablet (Centrum Adult 50 Plus) 2 tab PO DAILY Supplement 12/09/23
polyethylene glycol 3350 17 gram oral powder packet (Miralax) 17 g PO DAILY Constipation 12/09/23
sodium chloride 0.9 % (flush) 10 ml intra-catheter DAILY #20 syringes 12/16/23
morphine 15 mg immediate release tablet 15 mg PO QIDPRN PRN moderate to severe pain 02/09/24
Review of Systems
-
History Source: Patient
A 12 point ROS was completed and negative except as noted: Yes
Constitutional: Reports No Symptoms
EENT: Reports No Symptoms
Respiratory: Reports No Symptoms
Cardiac: Reports No Symptoms
Abdomen/GI: Reports See HPI
: Reports No Symptoms
Musculoskeletal: Reports No Symptoms
Skin: Reports No Symptoms
Neurological: Reports No Symptoms
Endocrine: Reports No Symptoms
Hematologic/Lymphatic: Reports No Symptoms
Psych: Reports No Symptoms
Physical Exam
Vital Signs
Vital Signs
Temp Pulse Resp BP Pulse Ox
98.4 F 86 17 109/73 99
02/09/24 18:14 02/09/24 22:00 02/09/24 22:00 02/09/24 22:00 02/09/24 20:36
Physical Exam
General: Well Developed, Well Nourished and No Apparent Distress
HEENT: NormoCephalic, Moist mucous membranes and Atraumatic
Respiratory: Clear
Cardiac: S1/S2 and Regular Rhythm; No Murmur or Rub
GI: Soft, Non Distended, Normal Bowel Sounds and Tender; No Organomegaly
Rectal: Deferred by Provider
Musculoskeletal: No Clubbing, No Cyanosis and No Edema
Skin: No Rash
Neuro: Nonfocal/grossly intact
Laboratory Results
-
02/09/24 18:07
02/09/24 18:07
Laboratory Results
Total Bilirubin 0.3 mg/dl (0.2-1.3) 02/09/24 18:07
AST 16 U/L (14-36) 02/09/24 18:07
ALT 11 U/L (0-35) 02/09/24 18:07
Alkaline Phosphatase 85 U/L (38-126) 02/09/24 18:07
Data Reviewed
-
Lab Data: Labs Reviewed by me
Old Records: Reviewed
Impression/Plan
-
IMPRESSION:
PLAN:
# Persistent pelvic fluid collection likely underlying anal squamous cell carcinoma rather than persistent abscess
-Status post IR drainage with KORTNEY drain in November
-Recent imaging studies of fluid collection suggesting that this is due to necrotic tumor rather than abscess which was previously
-CT abdomen pelvis shows redemonstration of large complex pelvic collection with percutaneous drainage catheter in the left lateral aspect of the collection concerning for necrotic malignancy in the setting of known squamous cell carcinoma of the
anus
-Colorectal surgery consulted
-Pain control with Dilaudid, ibuprofen
-Clear liquids
History of anal cancer status post ostomy 2021 with history of perirectal fistula
Constipation
-Continue bowel regimen
Medical marijuana use
Full code
DVT prophylaxis�heparin
Clear liquids
[2024-02-10] VITALS: BP 102/67; BMI 15.9
[2024-02-10] MEDS: MOTRIN 200 MG PO (00:56)
[2024-02-10 08:15] LABS: % Basophils 0.5 % (0-2); % Eosinophils 12.1 % (0-6); % Immature Granulocytes 0.4 % (0-0.5); % Lymphocytes 6.8 % (20.5-51.1); % Monocytes 6.6 % (1.7-9.3); % Neutrophils 73.6 % (42.2-75.2); Absolute Lymphocytes 0.5 10^3/uL (1.2-3.4); Absolute Monocytes 0.5 10^3/uL (0.1-0.6); Absolute Neutrophils 5.8 10^3/uL (1.4-6.5); Hematocrit 33.2 % (37.0-47.0); Hemoglobin 10.9 g/dL (12.0-16.0); Mean Corp Hgb Conc. 32.8 g/dL (33.0-37.0); Mean Corpuscular Hgb 28.8 pg (27.0-31.0); Mean Corpuscular Volume 87.6 fL (81.0-99.0); Mean Platelet Volume 8.4 fL (7.4-10.4); Nucleated Red Blood Cells % 0 %; Platelet Count 348 10^3/uL (130-400); Red Blood Cell Count 3.79 10^6/uL (4.20-5.40); Red Cell Dist. Width 14.5 % (11.5-14.5); White Blood Cell Count 7.9 10^3/uL (4.8-10.8)
[2024-02-10 08:37] LABS: ALT (SGPT) 10 U/L (0-35); AST (SGOT) 15 U/L (14-36); Albumin 3.3 g/dl (3.5-5.0); Alkaline Phosphatase 84 U/L (38-126); Blood Urea Nitrogen 10 mg/dl (7-17); Calcium 9.7 mg/dl (8.4-10.2); Carbon Dioxide 28 mmol/L (22-30); Chloride 104 mmol/L (98-107); Estimated Creatinine Clearance 76 ml/min; Glucose 95 mg/dl (70-99); Potassium 4.6 mmol/L (3.5-5.1); Sodium 138 mmol/L (135-145); Total Bilirubin 0.3 mg/dl (0.2-1.3); eGFR > 60.00
[2024-02-10] MEDS: MIRALAX PO (08:42)
[2024-02-10] MEDS: THERAGRAN PO (08:42)
[2024-02-10] MEDS: HEPARIN SC (08:42)
[2024-02-10] MEDS: DILAUDID 0.5 MG IV ×3 (10:09→19:27)
[2024-02-10] MEDS: MILK OF MAGNESIA 30 ML PO (10:09)
--- NOTE | 2024-02-10 12:56 | CON.CRS ---
Consultation
-
Date/Time Consultation Requested: 02/10/2024, 00:00
Date/Time Consultation Performed: 02/10/2024, 08:45
Requesting Provider: Nona Mcgee MD
Performing Provider: Reji Simmons MD
Reason for Consultation: anal cancer
Medical History
-
Chief Complaint: anal pain
History of Present Illness:
53-year-old female with known squamous cell anal cancer status post chemo (stop midway through due to feeling better) and diverting colostomy presents to the ER on 02/10/2024 due to continued anal drainage and anal pain. She was seen in our clinic
on 11/30/[address] 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 Her diagnosis dates back to March 2022 where she underwent a laparoscopic sigmoid loop colostomy for perforated cancer and biopsies
revealed a well-differentiated squamous cell carcinoma. She then underwent chemoradiation with 5-FU mitomycin-C from April to May in 2021. Due to her feeling better she stopped treatment. After her symptoms reoccurred she resumed
chemoradiation from November 2022 to January 2023 and it was discontinued after the linear accelerator broke. She has been to multiple hospitals including [facility] and [facility] due to infection of the anal area and has
undergone bedside drainage of the abscesses and treated with antibiotics.
On examination by Dr. Douglas, colorectal surgeon at [place], there was complete obliteration of the anal canal with tumor located 2 cm from the anal verge. The plan was for a PET/CT and MRI of the pelvis for consideration of an abdominoperineal
resection. She was also referred to palliative/ addiction medicine due to an opioid dependence.
An MRI in August 2023 was consistent with a Stage IIIa ([id number]) cancer. She was seen by Dr. Murillo at [facility] from medical oncology and chemotherapy and immunotherapy was discussed but not pursued due to the presence of the infection.
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 There was an
increase in presacral edema and the size of the abscess compared to a PET/CT on 08/04/2023.
She was admitted to [facility] on 11/18/2023 at [address] scan of the abdomen and pelvis revealed an irregular mass-like thickening of the distal rectum and anus with a contiguous loculated air-fluid collection along the posterior and
left lateral aspect. The findings were consistent with neoplasm with necrosis and abscess formation. She was treated with intravenous antibiotics and discharged home 2 days later.
After her office visit with Dr. Healy he had scheduled her for a colonoscopy next week (she has never had one) and had planned on potentially performing APR in the future with involvement of plastic surgery and Dr. Stephens with medical oncology if
the patient was committed to treatment with us. She was in the process of gathering her imaging reports/discs and records.
She was then seen at [facility] on 12/10/2023 due to increased anal pain and drainage. She underwent a drain placement by interventional radiology into the presacral abscess. She followed up in the office on 01/14/[address] Healy and he
offered her a completion proctectomy with wide excision of the cancer and abscess cavity as well as a vaginectomy and complete hysterectomy followed by a flap closure. She was not ready to commit to surgery at that time. She has called our office
several times due to anal pain which she believes is due to the IR drain. She was scheduled as an outpatient follow-up in the office last Thursday but she was over an hour late and was unable to be seen. She now presents to the ER due to continued
anal pain. CT A/P shows redemonstration of a complex pelvic collection with a percutaneous drainage catheter in the left lateral aspect of the collection via a transgluteal approach. Considered most suspicious for necrotic malignancy in the setting
of known squamous cell carcinoma of the anus. Large colonic stool burden proximal to the loop colostomy. We have been consulted for further surgical opinion.
Past Medical History
Past Medical History: Other (Psychiatric (anxiety) and Other (Squamous cell cancer, anus, h/o varicella))
Past Surgical History: Other (Bowel Resection (colostomy creation 03/2022), Tonsilectomy and Other (sinus surgery x 2))
Social History
Tobacco: Smoker
Drug: Marijuana
Family History
Family History: Reviewed & Not Pertinent
Allergies / Home Medications
Allergy/AdvReac Type Severity Reaction Status Date / Time
No Known Allergies Allergy Unverified 02/09/24 16:01
�Medication �Instructions �Recorded �Confirmed �Type
docusate sodium 100 mg capsule 200 mg PO HS Constipation 12/09/23 02/09/24 History
(Stool Softener)
ibuprofen 200 mg capsule (Advil 200 mg PO HSPRN PRN mild pain 12/09/23 02/09/24 History
Liqui-Gels Minis)
ibuprofen 200 mg tablet 400 mg PO BIDPRN PRN mild pain 12/09/23 02/09/24 History
multivitamin with minerals-folic 2 tab PO DAILY Supplement 12/09/23 02/09/24 History
acid 80 mcg chewable tablet
(Centrum Adult 50 Plus)
polyethylene glycol 3350 17 gram 17 g PO DAILY Constipation 12/09/23 02/09/24 History
oral powder packet (Miralax)
morphine 15 mg immediate release 15 mg PO QIDPRN PRN moderate to 02/09/24 02/09/24 History
tablet severe pain
sodium chloride 0.9 % (flush) 10 ml intra-catheter DAILY 02/10/24 02/09/24 History
Electrolyte Repletion
Review of Systems
-
A 10 point review of systems was completed, and was negative except as per HPI.
Physical Exam
Vital Signs
Temp 98.4 F 02/10/24 00:00
Pulse 99 02/10/24 00:00
Resp Rate 18 02/10/24 00:00
Blood pressure 102/67 02/10/24 00:00
SaO2 100 02/10/24 00:00
02/09/24 02/10/24 02/11/24
06:59 06:59 06:59
Actual Weight 44.679 kg
Body Mass Index (BMI) 15.9
Lab Results / Allergies
02/10/24 07:59
02/10/24 07:59
WBC 7.9 10^3/uL (4.8-10.8) 02/10/24 07:59
Hgb 10.9 g/dL (12.0-16.0) L 02/10/24 07:59
Hct 33.2 % (37.0-47.0) L 02/10/24 07:59
Plt Count 348 10^3/uL (130-400) 02/10/24 07:59
Abs Immat Gran (auto) 0.0 10^3/uL (0-0.05) 02/10/24 07:59
Neutrophils % 73.6 % (42.2-75.2) 02/10/24 07:59
Allergy/AdvReac Type Severity Reaction Status Date / Time
No Known Allergies Allergy Unverified 02/09/24 16:01
Physical Exam
General: Well Developed, Well Nourished and No Apparent Distress
GI: Soft, Non Tender and Non Distended
Rectal: Other (anal drain in place with purulent output)
Data Reviewed
-
Labs: Labs Reviewed by me, Discussed with Physician and Discussed with Patient
Assessment / Plan
-
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
Plan:
-Ultimately if she wants to pursue surgery with Dr. Healy, it will require extensive surgical planning involving medical oncology and plastic surgery. This will be discussed and arranged on an outpatient basis. There is no indication for urgent
surgery at this time.
-I will reach out to IR to see if they can perform a drain study
-Milk of magnesia due to constipation
-Pain management per primary team
--- NOTE | 2024-02-10 13:48 | W.PN.HOSP.TC ---
Today's Communication/Plan
-
Colorectal surgery has met with the patient and advised her that if she wants to pursue surgery with Dr. Healy it would require extensive surgical planning involving medical oncology and plastic surgery. These follow-ups would be arranged on an
outpatient basis and they did not believe that urgent surgery was indicated at this time. Colorectal Surgery has reached out to interventional radiology to see if they can perform a drain study. Will wait for the conclusion of drain study before
considering moving forward with discharge planning with recommendation of outpatient follow-up.
Assessment / Plan
Assessment / Plan
- Persistent pelvic fluid collection likely underlying anal squamous cell carcinoma rather than persistent abscess
Status post IR drainage with KORTNEY drain in November
Recent imaging studies of fluid collection suggesting that this is due to necrotic tumor rather than abscess which was previously
CT abdomen pelvis shows redemonstration of large complex pelvic collection with percutaneous drainage catheter in the left lateral aspect of the collection concerning for necrotic malignancy in the setting of known squamous cell carcinoma of the
anus
Colorectal surgery consulted - Upon further assessment there is no indication for urgent surgery at this time. The patient has been offered the option of pursuing surgery with Dr. Healy and it will require extensive surgical planning involving
medical oncology and plastic surgery.
Pain control with Dilaudid, ibuprofen
Clear liquids - Continued
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
March 2022 she underwent a laparoscopic sigmoid loop colostomy for perforated cancer and biopsies revealed a well-differentiated squamous cell carcinoma. She then underwent chemoradiation with 5-FU mitomycin-C from April to May in 2021.
Due to her feeling better she stopped treatment. After her symptoms reoccurred she resumed chemoradiation from November 2022 to January 2023 and it was discontinued after the linear accelerator broke. She has been to multiple hospitals including [facility]
[place] and [facility] due to infection of the anal area and has undergone bedside drainage of the abscesses and treated with antibiotics.
On examination by Dr. Douglas, colorectal surgeon at [place], there was complete obliteration of the anal canal with tumor located 2 cm from the anal verge. The plan was for a PET/CT and MRI of the pelvis for consideration of an abdominoperineal
resection. She was also referred to palliative/ addiction medicine due to an opioid dependence.
An MRI in August 2023 was consistent with a Stage IIIa ([id number]) cancer. She was seen by Dr. Murillo at [facility] from medical oncology and chemotherapy and immunotherapy was discussed but not pursued due to the presence of the infection. -
- Constipation - Monitoring
Continue bowel regimen -Milk of magnesia
- Opioid Dependence:
Monitoring for opioid withdrawal
Anticipated Discharge: 24 - 48 hours
Subjective/Interval History
-
Date of Service: February 10, 2024
Met with patient at the bedside. Unfortunately, she said that she is not feeling well and had a terrible night. She has been contending with lower back and pelvic pain that has disrupted her sleep. She describes the pain as sharp and stabbing.
She is aggravated about the IR drain that has been slowly draining a cloudy straw colored liquid. She refused all of her medications this morning.
Objective Data
-
Labs:
Laboratory Results
02/10/24
07:59
WBC 7.9
Hgb 10.9 L
Hct 33.2 L
Plt Count 348
Sodium 138
Potassium 4.6
Chloride 104
Carbon Dioxide 28
BUN 10
Creatinine 0.5 L
Glucose 95
Calcium 9.7
Total Bilirubin 0.3
AST 15
ALT 10
Alkaline Phosphatase 84
Vital Signs:
Vital Signs
Temp Pulse Resp BP Pulse Ox
98.4 F 99 18 102/67 100
02/10/24 00:00 02/10/24 00:00 02/10/24 00:00 02/10/24 00:00 02/10/24 00:00
I&O
02/09/24 02/10/24 02/11/24
06:59 06:59 06:59
Intake Total 600 / 600
Balance 600 / 600
Review of Systems
-
History Source: Patient
Respiratory: Reports No Symptoms
Cardiac: Reports No Symptoms
Abdomen/GI: Reports Abdominal Pain
Breast: Reports No Symptoms
Musculoskeletal: Reports No Symptoms
Psych: Reports Anxious
Physical Exam
-
General: Well Developed and Cachectic
HEENT: Normocephalic, Atraumatic and Moist Mucous Membranes
Respiratory: Clear to Auscultation
Cardiac: Tachycardic
Breast: Deferred by me
GI: Tender, Ostomy and Other (IR Drain)
Musculoskeletal: No Clubbing, No Cyanosis and No Edema
Skin: Warm and Dry
Neuro: Nonfocal/Grossly Intact
Psych: Agitated
--- NOTE | 2024-02-10 13:56 | CM ---
Case management following for d/c planning
Pt admitted for anal drainage and pain. Hx of squamous cell anal cancer
Attempted to see pt to complete initial assessment - pt refused to talk reporting 'I need sleep and I am in too much pain'
CM will attempt to complete assessment at another time
Plan - tbd - based on pt needs
[2024-02-10 14:37] VITALS: BMI 15.9
[2024-02-10 15:00] VITALS: BP 117/71
--- NOTE | 2024-02-10 15:36 | PTCARENOTE ---
RN walked in room this am and smelled strong odor of marijuana, RN informed via tiger text ,no new orders at this time. PCT went into patient room this afternoon and walked into a cloud of smoke. Security made aware, patient searched.
Patient verbalized she has a marijuana card and a vape pen shes been using in hospital. Samanta Chu made aware. data security analyst as well as pharmacy at bedside, vape pen taken to pharmacy to hold till discharge. Dr. Arnett made aware.
--- NOTE | 2024-02-10 15:49 | W.PN.UPDATE ---
Update Note
Progress Note Update
I saw and evaluated the patient. I reviewed the resident�s note and agree with findings and plan as documented in the resident�s note.
Patient came back and right intractable perirectal pain. She recently had aspirate sent from cytology. She has a KORTNEY drain to the perirectal cavity presumed abscess recently. Her aspirate cytology is positive for malignant cells. Now the concern
is if she has necrotic tumor and the drainage is more from necrosis . CT A/P noted about the soft tissue abnormality in perirectal area . Await colorectal surgery input regarding further direction of her. Active cancer.
Recurrent symptoms is pain ;patient is very fixated that this is a large abscess and we not able to fix that. Tried my best to talk about the concerns about local malignancy but she did not want to hear about it and asked me to leave. She just
wants to have her KORTNEY drained removed and want to go home.
I was told by RN that she is smoking Marijuana in her room; claims she has medical card for it.
I feel she may be having adjustment issues to her new found info of malignant cells in the aspirate.
Will attempt to have tim conversation when pt allows about dx, evaluations.
--- NOTE | 2024-02-10 16:28 | PTCARENOTE ---
Updated Security and truck manager that staff updated me that ' patient was vaping Marijuana ' in her room . anesthesiology medical doctor, Policy Officer and myself went into room and spoke to patient. Patient denied vaping , but did allow us to
remove the marijuana and a 2 round jars and a pen . They are in a patient belonging bag with the patient label on bag and locked in anesthesiology medical doctor office. Patient was agreeable .to having them removed
[2024-02-10] MEDS: HEPARIN 5000 UNITS SC (19:29)
--- NOTE | 2024-02-10 22:00 | PTCARENOTE ---
Another vape pen discovered in pt's bed. Informed pt that vaping not allowed in pt rooms. Pt denied vaping and allowed us to remove the pen. Placed in pt's med bin in bag with pt label on it.
[2024-02-10] MEDS: COLACE 200 MG PO (23:00)
[2024-02-10 23:25] VITALS: BP 95/57
[2024-02-11] MEDS: DILAUDID 0.5 MG IV ×4 (02:39→17:09)
[2024-02-11] MEDS: MIRALAX 17 GRAMS PO (07:16)
[2024-02-11] MEDS: THERAGRAN 1 TABLET PO (07:16)
[2024-02-11] MEDS: HEPARIN SC ×2 (07:17→20:07)
[2024-02-11 07:55] VITALS: BP 89/59
[2024-02-11 07:59] LABS: Hematocrit 32.9 % (37.0-47.0); Mean Corp Hgb Conc. 33.4 g/dL (33.0-37.0); Mean Corpuscular Hgb 28.9 pg (27.0-31.0); Mean Corpuscular Volume 86.4 fL (81.0-99.0); Mean Platelet Volume 8.6 fL (7.4-10.4); Platelet Count 354 10^3/uL (130-400); Red Blood Cell Count 3.81 10^6/uL (4.20-5.40); Red Cell Dist. Width 14.4 % (11.5-14.5); White Blood Cell Count 8.2 10^3/uL (4.8-10.8)
[2024-02-11 09:38] LABS: Blood Urea Nitrogen 13 mg/dl (7-17); Calcium 9.6 mg/dl (8.4-10.2); Carbon Dioxide 27 mmol/L (22-30); Chloride 104 mmol/L (98-107); Estimated Creatinine Clearance 76 ml/min; Glucose 104 mg/dl (70-99); Potassium 4.9 mmol/L (3.5-5.1); Sodium 136 mmol/L (135-145); eGFR > 60.00
--- NOTE | 2024-02-11 10:23 | VNURNOTE ---
Chart reviewed. Patient is current with [facility]. Will follow hospital course and dc plan.
--- NOTE | 2024-02-11 10:32 | W.PN.CRS1 ---
Today's Communication / Plan
-
patient willing to discuss palliative care
not interested in surgery
IR consult
Assessment/Plan
-
53-year-old female with known anal squamous cell cancer s/p ostomy and LOWERATOR OPERATOR, complicated by recurrence and pelvic abscess with placement of IR drain on 12/10; she has met with Dr. Healy who recommended surgery for pelvic exenteration with Dr. Stephens
and Dr. López; however, patient has not yet scheduled the surgery; she presents with worsening pelvic pain and swelling near the drain over the last week; WBC 9.6, CT showing stable complicated pelvic collection, likely necrotic tumor and
significant constipation; per patient, drain has been draining significant amount each day
AFVSS, ABD soft, nondistended, nontender; hard stool palpable within ostomy appliance bag; KORTNEY with thick serous output
� No acute surgical intervention; patient has complex history with need for definitive surgical resection; patient has seen multiple second opinions and has yet to schedule surgery with our surgeons; without surgery, the tumor will continue to grow,
which is likely contributing to her pelvic pain - again discussed with patient this morning with Dr. Healy. Patient is not interested in surgery at this time. She understands that without surgery, her cancer will continue.
� Recommend palliative care consult for long-acting pain control - patient is willing to do this per discussion this morning
� Continue low residue diet
� Recommend IR evaluation of drain and ?another drain placement
� Recommend aggressive bowel regiment, including Colace, MiraLAX as needed and possible enemas
� Appreciate hospitalist
Subjective Data
Subjective Data
Date of Service: February 11, 2024
Patient states she is still in a lot of anal pain. She is tolerating a diet and her colostomy is functioning.
Objective Data
-
Vital Signs
Temp Pulse Resp BP Pulse Ox
98.5 F 82 16 89/59 98
02/11/24 07:55 02/11/24 07:55 02/11/24 07:55 02/11/24 07:55 02/11/24 07:55
Intake & Output
02/10/24 02/11/24 02/12/24
06:59 06:59 06:59
Intake Total 600 / 600 1200 / 1200
Output Total 60 / 60
Balance 600 / 600 1140 / 1140
Intake:
Oral fluids 600 / 600 1200 / 1200
Output:
Drain Output (Total)
Right Mina-Degroot /
Other:
Number of approximated MODERATE 2 1
amounts of urine
Lab Results
02/11/24 07:26
02/11/24 07:26
Physical Exam
-
General: No Acute Distress and AOx3
Abdomen: Soft, Non Distended and Non Tender
Rectal: Other (IR drain in place - green pus, painful on palpation around tailbone. No skin erythema. )
--- NOTE | 2024-02-11 12:08 | CM ---
CM met with pt at bedside
Pt upset - answered questions reluctantly - reported pain, asking for pain meds
Lives alone in an apartment - 14 steps to answer
Has a son, lives with her ex
Active with [facility]
DME - none
SNF - [facility] in past
HH - [facility]
PCP - [facility]
Pharm - [facility]
CM will follow for d/c needs
Plan - anticipate home with [facility]
--- NOTE | 2024-02-11 13:14 | W.CON.PAL ---
Consultation
-
Date/Time Consultation Requested: 02/11/2024
Date/Time Consultation Performed: 09/13/2023 12:00-1:00
Requesting Provider: Dr. Plata PGY1/Dr. Arnett
Performing Provider: Dr. Lutz
Reason for Consult: Goals of Care Discussion and Symptom & Pain Management
Primary Diagnosis: Squamous Cell carcinoma of the anal canal
Consult Requested By: Patient's Physician
Primary Care Physician: Shaq Casey
Reason for Admission
Illness Course/HPI
Chart reviewed, [facility] records reviewed, Available records from oncology reviewed. Discussed with primary team, nursing.
Sonia is a 53 y/o female with hx of well differentiated squamous cell carcinoma o the anal canal, found when she presented with perirectal abscess in 2021, biopsy positive for SCC. She was inconsistent with her radiation and chemotherapy follow up
and retreatment was initiated 12/06/2022 with partial completion of radiation, and failure to follow up for completion of chemo regimen. She later switched care to Dr. Murillo� 09/2023 at that time imaging noted invasion into the pelvic sidewall.
radiation no longer feasible (max treatments) . Surgical intervention likely would be extensive - per review of outpatient records and review of oncology note. Note from 01/05 Dr. Stephens Dyer/[facility] oncology note reviewed as well regarding surgical
recommendations from dr. Healy 01/13 (notes in [facility] reviewed) . During this time she has had ongoing issues with rectal fluid collection, drain in place
Admitted to hospital 02/08 due to peristent fluid collection, pain symptoms.
Palliative care referral for goals/pain management
Reports severe pain, anxiety, depressive symptoms due to pain being uncontrolled.
Reports pain to vaginal and rectal area, and pain radiating down bilateral legs. radiating pain a month ago was just in left, now both legs.
Reports relief with IV Dilaudid but only for short period of time
Prior Regimen: MSER 30mg BID - stopped as it wasn't helping and did not get refill from oncology. MSIR 15 qid (PAPDMP VERIFIED) -some help
She reports ibuprofen/tylenol have been helpful. In the past percocet has been helpful
PAPDMP verified
ORT - High - prior hx.
Patient is enrolled in the [facility] (verified - Certification # [id number]) .
Functional Status & Support Systems
Current Functional Status:
At her baseline she is independent, able to ambulate short distances and provdes for her own personal care needs. Lately due to pain she has been spending more time in bed.
She is not driving currently.
Home help: homecare
Caregivers: lives alone
Support: Supported by her exhusband and family, and their 16 year old son. Patient ahs a 34 y/o son who lives in [place] (Jasen is her medical poa), and a 31 year old daughter who lives in [facility].
Equipment at home: she reports no DME.
ADLS: Moderate Assistance
Review of Advanced Directives
Type of Documentation: Medical Power of Vpk Teacher (Not in chart - patient reports her son Jasen is her medical POA)
Goals of Care Discussion
-
Patient able to participate in discussion at time of visit: Yes
Illness Severity & Prognosis Discussion
Patient's awareness/understanding of illness: Life Threatening/Serious
Patient & family understanding of treatment/care options:
Patient undestands she has cancer, but also feels that she has other rectal issues going on with the abcess that are not being addressed at this time.
She reports that she had intended to pursue chemotherapy, but now with the abcess, everything is being put on hold.
Pain & Symptom Assessment
[place] Symptom Scale 0=none, 10=worst
Pain: 10
Tired: 5 (moderate)
Drowsy: 0
Nausea: 0
Appetite: 0
Shortness of Breath: 2 (reports mild)
Depressed: 10
Anxiety: 10
[place]
Objective Data
-
Objective Data:
Vital Signs
Temp Pulse Resp BP Pulse Ox
98.5 F 82 16 89/59 98
02/11/24 07:55 02/11/24 07:55 02/11/24 07:55 02/11/24 07:55 02/11/24 07:55
Laboratory Results
02/11/24 07:26
02/11/24 07:26
Total Protein 6.0 g/dl (6.3-8.2) L 02/10/24 07:59
Albumin 3.3 g/dl (3.5-5.0) L 02/10/24 07:59
Palliative Performance Scale
Palliative Performance Scale:
PPS Level Ambulation Activity & Evidence of Disease Self Care Intake Conscious Level
100% Full Normal Activity & Work; Full Intake Full
No Evidence of Disease
90% Full Normal Activity & Work; Full Normal Full
Some Evidence of Disease
80% Full Normal Activity with Effort Full Normal or Full
Some Evidence of Disease Reduced
70% Reduced Unable Normal Job/Work Full Normal or Full
Significant Disease Reduced
60% Reduced Unable Hobby/Housework Occasional Normal or Full or Confusion
Significant Disease Assistance Reduced
50% Mainly Sit/Lie Unable to do Any Work Considerable Normal or Full or Confusion
Extensive Disease Assistance Req'd Reduced
40% Mainly in Bed Unable to do Most Activity Mainly Assistance Normal or Full or Drowsy;
Extensive Disease Reduced +/- Confusion
30% Totally Bed Unable to do Any Activity Total Care Normal or Full or Drowsy;
Bound Extensive Disease Reduced +/- Confusion
20% Totally Bed Bound Unable to do Any Activity Total Care Minimal to Full or Drowsy;
Extensive Disease Sips +/- Confusion
10% Totally Bed Bound Unable to do Any Activity Total Care Mouth Care Drowsy or Coma;
Extensive Disease Only +/- Confusion
0%
PPS Score Level: 50
Physical Exam
-
General: Appears in Distress and Pain
HEENT: Normocephalic
Respiratory: Clear to Auscultation
Cardiac: Regular Rhythm
Peripheral Vascular: No Edema
GI: Soft, Tender (Lower abdomen. ), Colostomy and Other
Rectal: Deferred by Provider (notes reviewed. rectal mass)
Neuro: Awake, Alert and Oriented
Psych: Anxious
Assessment / Plan
-
Assessment/Plan:
Anal Squamous Cell Carcinoma
Rectal Abcess with drain in place
Cancer related pain.
Goals of Care: Patient considering surgical options at this time. Goals TBD
Pain & Symptom Management:
Continue IV dilaudid for breakthrough pain PRN
Would like to minimize opioids by utilizing gabapentin, topical creams if possible.
Add percocet 1 tab q6 hours scheduled
Add gabapentin 200mg QHS
Add Lidocaine-prilocaine cream/ointment OR lidocaine spray topical q8 hours scheduled
Continue ibuprofen prn
Consider - outpatient referral to interventional pain mangaement/dr. ramírez for block
Palliative Care outpatient follow up - ORT high, likely home visits will be needed.
Constipation prevention - continue stool softners, miralax as prescribed.
The above recommendations were discussed with the patient and medical team, discussed with Dr. Plata (PGY1)
Care Reviewed
Data Reviewed
Medical Tests: I reviewed
Reviewed with: Patient and Physician
Time
Start Date: 02/11/24
Start Time: 12:00
Stop Date: 02/11/24
Stop Time: 13:34
Time Spent:
94 mins total floor time
[2024-02-11 15:39] VITALS: BP 102/68
[2024-02-11] MEDS: PERCOCET 5/325 1 TABLET PO (17:09)
--- NOTE | 2024-02-11 17:30 | W.PN.HOSP.TC ---
Documented by User: Marichuy Plata MD, Resident 02/11/24 18:26
Today's Communication/Plan
-
Patient stated to colorectal surgery that she is not ready to have surgery and was explained that removing the drain would not resolve the primary issue. She was amenable to being seen by palliative care and palliative care met with her to discuss
goals of care. Patient was unsure whether she would move forward with surgery at any point and was going to take the time to consider her options. Palliative care recommended Percocet 1 tab every 6 hours scheduled, add gabapentin 200 mg/day, and
add lidocaine cream/ointment or lidocaine spray every 8 hours scheduled.
Assessment / Plan
Assessment / Plan
- Persistent pelvic fluid collection likely underlying anal squamous cell carcinoma rather than persistent abscess
Status post IR drainage with KORTNEY drain in November
Recent imaging studies of fluid collection suggesting that this is due to necrotic tumor rather than abscess which was previously
CT abdomen pelvis shows redemonstration of large complex pelvic collection with percutaneous drainage catheter in the left lateral aspect of the collection concerning for necrotic malignancy in the setting of known squamous cell carcinoma of the
anus
Colorectal surgery consulted - Upon further assessment there is no indication for urgent surgery at this time. The patient has been offered the option of pursuing surgery with Dr. Healy and it will require extensive surgical planning involving
medical oncology and plastic surgery. -Patient stated that she would want the drain removed but was explained that if removed she would probably need another drain in the near future. Drains would not resolve the situation and surgery was offered
and the patient was amenable to being seen by palliative care. Palliative care saw the patient and discussed goals of care.
Pain control with Dilaudid, ibuprofen, Percocet 1 tablet every 6 hours, gabapentin 200 mg and lidocaine cream added
Clear liquids - Continued
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
March 2022 she underwent a laparoscopic sigmoid loop colostomy for perforated cancer and biopsies revealed a well-differentiated squamous cell carcinoma. She then underwent chemoradiation with 5-FU mitomycin-C from April to May in 2021.
Due to her feeling better she stopped treatment. After her symptoms reoccurred she resumed chemoradiation from November 2022 to January 2023 and it was discontinued after the linear accelerator broke. She has been to multiple hospitals including [facility] and [facility] due to infection of the anal area and has undergone bedside drainage of the abscesses and treated with antibiotics.
On examination by Dr. Douglas, colorectal surgeon at [facility], there was complete obliteration of the anal canal with tumor located 2 cm from the anal verge. The plan was for a PET/CT and MRI of the pelvis for consideration of an abdominoperineal
resection. She was also referred to palliative/ addiction medicine due to an opioid dependence.
An MRI in August 2023 was consistent with a Stage IIIa ([id number]) cancer. She was seen by Dr. Murillo at [facility] from medical oncology and chemotherapy and immunotherapy was discussed but not pursued due to the presence of the infection.
Palliative Consult -palliative met with patient and discussed the course of her disease. They discussed goals for care and patient remains considering social surgical options at this time. They recommended pain management with 1 tablet of
Percocet every 6 hours as needed. They advised that Dilaudid IV continue as needed for now. They suggested gabapentin 200 mg/day, and lidocaine/Prilocane ointment every 8 hours as needed. I also advised consideration of outpatient referral to
interventional pain management with Dr. Mireles for block. Opioid risk tool high - likely home visits will be needed.
- Constipation - Monitoring
Continue bowel regimen -Milk of magnesia
- Opioid Dependence:
Monitoring for opioid withdrawal
Anticipated Discharge: 24 - 48 hours
Subjective/Interval History
-
Date of Service: February 11, 2024
Met with patient at the bedside. Her mood is slightly better as compared to yesterday. She was apologetic for feeling 'grumpy' towards other staff members and physicians who saw her yesterday. Patient was reassured and I took time to explain the
prior imaging the patient underwent and her anal squamous cell carcinoma diagnosis. Patient was receptive to bedside counseling and said she would speak to colorectal surgery about what she might do moving forward.
Objective Data
-
Labs:
Laboratory Results
02/11/24
07:26
WBC 8.2
Hgb 11.0 L
Hct 32.9 L
Plt Count 354
Sodium 136
Potassium 4.9
Chloride 104
Carbon Dioxide 27
BUN 13
Creatinine 0.6
Glucose 104 H
Calcium 9.6
Vital Signs:
Vital Signs
Temp Pulse Resp BP Pulse Ox
98.8 F 96 16 102/68 99
02/11/24 15:39 02/11/24 15:39 02/11/24 15:39 02/11/24 15:39 02/11/24 15:39
I&O
02/10/24 02/11/24 02/12/24
06:59 06:59 06:59
Intake Total 600 / 600 1200 / 1200
Output Total 60 / 60
Balance 600 / 600 1140 / 1140
Review of Systems
-
History Source: Patient
Constitutional: Reports Weight Loss and Fatigue
EENT: Reports No Symptoms Reported
Respiratory: Reports No Symptoms
Cardiac: Reports No Symptoms
Abdomen/GI: Reports Abdominal Pain and Pain
Breast: Reports No Symptoms
Musculoskeletal: Reports No Symptoms
Skin: Reports No Symptoms
Neuro: Reports No Symptoms
Endocrine: Reports No Symptoms
Hematologic / Lymphatic: Reports No Symptoms
Allergy / Immunology: Reports No Symptoms
Psych: Reports Sad
Physical Exam
-
General: Cachectic
HEENT: Normocephalic
Respiratory: Clear to Auscultation
Cardiac: Regular Rhythm and S1/S2
Breast: Deferred by me
GI: Ostomy
Rectal: Deferred by Provider
Genito-urinary: Deferred by me
Musculoskeletal: No Clubbing, No Cyanosis and No Edema
Skin: Warm and Dry
Neuro: Nonfocal/Grossly Intact

Documented by User: Mike Arnett MD 02/12/24 15:11
Today's Communication/Plan
-
Check a UA as pt complaints of some dysuria.
If neg for UTI will dc pt home on pain regimen; pt to follow with CRS once she makes up her mind on surgical interventions.
Assessment / Plan
Assessment / Plan
- Persistent pelvic fluid collection likely underlying anal squamous cell carcinoma rather than persistent abscess
Status post IR drainage with KORTNEY drain in November
Recent imaging studies of fluid collection suggesting that this is due to necrotic tumor rather than abscess which was previously
CT abdomen pelvis shows redemonstration of large complex pelvic collection with percutaneous drainage catheter in the left lateral aspect of the collection concerning for necrotic malignancy in the setting of known squamous cell carcinoma of the
anus
Colorectal surgery consulted - Upon further assessment there is no indication for urgent surgery at this time. The patient has been offered the option of pursuing surgery with Dr. Healy and it will require extensive surgical planning involving
medical oncology and plastic surgery. -Patient stated that she would want the drain removed but was explained that if removed she would probably need another drain in the near future. Drains would not resolve the situation and surgery was offered
and the patient was amenable to being seen by palliative care. Palliative care saw the patient and discussed goals of care.
Pain control with Dilaudid, ibuprofen, Percocet 1 tablet every 6 hours, gabapentin 200 mg and lidocaine cream added
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
March 2022 she underwent a laparoscopic sigmoid loop colostomy for perforated cancer and biopsies revealed a well-differentiated squamous cell carcinoma. She then underwent chemoradiation with 5-FU mitomycin-C from April to May in 2021.
Due to her feeling better she stopped treatment. After her symptoms reoccurred she resumed chemoradiation from November 2022 to January 2023 and it was discontinued after the linear accelerator broke. She has been to multiple hospitals including [facility] and [facility] due to infection of the anal area and has undergone bedside drainage of the abscesses and treated with antibiotics.
On examination by Dr. Douglas, colorectal surgeon at [facility], there was complete obliteration of the anal canal with tumor located 2 cm from the anal verge. The plan was for a PET/CT and MRI of the pelvis for consideration of an abdominoperineal
resection. She was also referred to palliative/ addiction medicine due to an opioid dependence.
An MRI in August 2023 was consistent with a Stage IIIa ([id number]) cancer. She was seen by Dr. Murillo at [facility] from medical oncology and chemotherapy and immunotherapy was discussed but not pursued due to the presence of the infection.
Palliative Consult -palliative met with patient and discussed the course of her disease. They discussed goals for care and patient remains considering social surgical options at this time. They recommended pain management with 1 tablet of
Percocet every 6 hours as needed. They advised that Dilaudid IV continue as needed for now. They suggested gabapentin 200 mg/day, and lidocaine/Prilocane ointment every 8 hours as needed. I also advised consideration of outpatient referral to
interventional pain management with Dr. Mireles for block. Opioid risk tool high - likely home visits will be needed.
- Constipation - Monitoring
Continue bowel regimen -Milk of magnesia
- Opioid Dependence:
Monitoring for opioid withdrawal
Anticipated Discharge: Within 24 hours
[2024-02-11] MEDS: COLACE 200 MG PO (21:16)
[2024-02-11] MEDS: NEURONTIN 200 MG PO (21:16)
[2024-02-11] MEDS: LMX 4 1 APPLIC TOPICAL (21:31)
[2024-02-11 23:24] VITALS: BP 91/65
[2024-02-12] MEDS: PERCOCET 5/325 1 TABLET PO ×5 (00:01→23:53)
[2024-02-12 02:33] VITALS: BP 99/57
--- NOTE | 2024-02-12 07:51 | W.PN.HOSP.TC ---
Today's Communication/Plan
-
Will increase gabapentin to 100 in the morning and afternoon and 300 mg at bedtime to improve her pain management. Will consult colorectal surgery to address her concerns involving her drain placement. Supportive counseling provided at the
bedside. After discussion with palliative care, patient has changed her CODE STATUS to DNR.
Assessment / Plan
Assessment / Plan
- Persistent pelvic fluid collection likely underlying anal squamous cell carcinoma rather than persistent abscess
Status post IR drainage with KORTNEY drain in November
Recent imaging studies of fluid collection suggesting that this is due to necrotic tumor rather than abscess which was previously
CT abdomen pelvis shows redemonstration of large complex pelvic collection with percutaneous drainage catheter in the left lateral aspect of the collection concerning for necrotic malignancy in the setting of known squamous cell carcinoma of the
anus
Colorectal surgery consulted - Upon further assessment there is no indication for urgent surgery at this time. The patient has been offered the option of pursuing surgery with Dr. Healy and it will require extensive surgical planning involving
medical oncology and plastic surgery. -Patient stated that she would want the drain removed but was explained that if removed she would probably need another drain in the near future. Drains would not resolve the situation and surgery was offered
and the patient was amenable to being seen by palliative care. Palliative care saw the patient and discussed goals of care.
Pain control with Dilaudid, ibuprofen, Percocet 1 tablet every 6 hours and lidocaine cream added -will increase gabapentin to 100 in the morning and in the afternoon and then 300 mg at bedtime as per recommendation from palliative care
Clear liquids - Continued
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
March 2022 she underwent a laparoscopic sigmoid loop colostomy for perforated cancer and biopsies revealed a well-differentiated squamous cell carcinoma. She then underwent chemoradiation with 5-FU mitomycin-C from April to May in 2021.
Due to her feeling better she stopped treatment. After her symptoms reoccurred she resumed chemoradiation from November 2022 to January 2023 and it was discontinued after the linear accelerator broke. She has been to multiple hospitals including [facility]
[place] and [facility] due to infection of the anal area and has undergone bedside drainage of the abscesses and treated with antibiotics.
On examination by Dr. Douglas, colorectal surgeon at [facility], there was complete obliteration of the anal canal with tumor located 2 cm from the anal verge. The plan was for a PET/CT and MRI of the pelvis for consideration of an abdominoperineal
resection. She was also referred to palliative/ addiction medicine due to an opioid dependence.
An MRI in August 2023 was consistent with a Stage IIIa ([id number]) cancer. She was seen by Dr. Murillo at [facility] from medical oncology and chemotherapy and immunotherapy was discussed but not pursued due to the presence of the infection.
Palliative Consult -palliative met with patient and discussed the course of her disease. They discussed goals for care and patient remains considering social surgical options at this time. They recommended pain management with 1 tablet of
Percocet every 6 hours as needed. They advised that Dilaudid IV continue as needed for now. They suggested gabapentin 200 mg/day, and lidocaine/Prilocane ointment every 8 hours as needed. Patient was also advised to consider outpatient referral
to interventional pain management with Dr. Mireles for block. Opioid risk tool high - likely home visits will be needed.
- Constipation - Monitoring
Continue bowel regimen -Milk of magnesia
- Opioid Dependence:
Monitoring for opioid withdrawal
- Cachexia:
Patient's BMI is 15.9 categorizing the patient as severely underweight
Likely secondary to ongoing malignancy
Anticipated Discharge: 24 - 48 hours
Subjective/Interval History
-
Date of Service: February 12, 2024
Met with patient at the bedside. Patient still anxious about her ongoing medical diagnoses. She is worried about having a UTI and hopes that it can be checked. She is not ready to consider surgery at the present time nor is she interested in the
hospice approach. Patient is worried about her drain placement.
Objective Data
-
Vital Signs:
Vital Signs
Temp Pulse Resp BP Pulse Ox
97.8 F 81 16 99/57 98
02/11/24 23:24 02/12/24 02:33 02/11/24 23:24 02/12/24 02:33 02/11/24 23:24
I&O
02/11/24 02/12/24 02/13/24
06:59 06:59 06:59
Intake Total 1200 / 1200 1720 / 1720
Output Total 60 / 60
Balance 1140 / 1140 1720 / 1720
Review of Systems
-
History Source: Patient
Constitutional: Reports Fatigue and Weakness
EENT: Reports No Symptoms Reported
Respiratory: Reports No Symptoms
Cardiac: Reports No Symptoms
Abdomen/GI: Reports Abdominal Pain and Pain
Breast: Reports No Symptoms
Genitourinary: Reports No Symptoms
Musculoskeletal: Reports No Symptoms
Skin: Reports No Symptoms
Neuro: Reports No Symptoms
Endocrine: Reports No Symptoms
Hematologic / Lymphatic: Reports No Symptoms
Allergy / Immunology: Reports No Symptoms
Physical Exam
-
General: Well Developed, Well Nourished and No Apparent Distress
HEENT: Normocephalic, Atraumatic and Moist Mucous Membranes
Respiratory: Clear to Auscultation
Cardiac: Regular Rhythm and S1/S2
Breast: Deferred by me
GI: Ostomy
Rectal: Deferred by Provider
Genito-urinary: Deferred by me
Musculoskeletal: No Clubbing, No Cyanosis and No Edema
Skin: Warm and Dry
Neuro: Nonfocal/Grossly Intact
[2024-02-12 09:46] VITALS: BP 104/68
[2024-02-12] MEDS: DILAUDID 0.5 MG IV ×2 (09:49→20:51)
[2024-02-12] MEDS: HEPARIN 5000 UNITS SC (09:51)
[2024-02-12] MEDS: MIRALAX 17 GRAMS PO (09:51)
[2024-02-12] MEDS: THERAGRAN 1 TABLET PO (09:52)
--- NOTE | 2024-02-12 12:52 | PTCARENOTE ---
RN reached out to surgery PA to come speak to patient about goals of care. Hospitalist came by and told RN he would be ordering UA on patient
--- NOTE | 2024-02-12 13:15 | W.PN.PAL2 ---
Today's Communication
-
-
Assessment / Plan
-
Assessment/Plan:
Goals of Care
Patient undecided on decisions of surgery vs comfort care. These discussions could also be continued as an outpatient with palliative care
Inpatient code status: DNR.
Pain & Symptom Management:
Improved with med additions.
Increase gabapentin to 100mg in AM, 100mg noon, and 300mg at bedtime.
Continue topical pain med, scheduled percocet
Will discuss with attending regarding feasibility of trial with drain removed.
Discharge Planning Needs: outpatient palliative care
The above recommendations were discussed with the patient/family and medical team.
Reason for Admission
Illness Course/HPI
Patient seen for palliative care follow up
She reports pain symptoms overnight were better controlled, she was able to sleep. Received neurontin and percocet scheduled overnight. did not require PRN hydromorphone till 9 am today. She feels that drain is the big source of her pain, reports
feeling like drain is moving, and wishes it could be removed. Discussed the risk of fluid reaccumulation, however she does have a fistula that is draining. She feels that removal of the drain would improve her pain and allow her to sit more
comfortably, but if trial removed was unsuccessful she would be open to reinsertion. Will discuss with primary attending if this is feasible.
We talked about her decisions and thoughts about surgical intervention, and she reports that she is no where ready to make that decision. Discussed that alternatively to surgery, we can focus on comfort care, hospice - again not ready to make this
decision. She would prefer to defer this decision till she is out of the hospital
We discussed code status - if she were to get sicker she would want to speak with the surgeons, she would want antibiotics, but she would not want to be on a ventilator or have CPR.
Functional Status & Support Systems
Current Functional Status:
At her baseline she is independent, able to ambulate short distances and provdes for her own personal care needs. Lately due to pain she has been spending more time in bed.
She is not driving currently.
Home help: DH homecare
Caregivers: lives alone
Support: Supported by her exhusband and family, and their 16 year old son. Patient ahs a 34 y/o son who lives in [place] (Jasen is her medical poa), and a 31 year old daughter who lives in [facility].
Equipment at home: she reports no DME.
ADLS: Moderate Assistance
Review of Advanced Directives
Type of Documentation: Medical Power of Patient Transportation Driver (Not in chart - patient reports her son Jasen is her medical POA)
Pain & Symptom Assessment
Patient Symptoms
Patient Symptoms: Pain
[place] Symptom Scale 0=none, 10=worst
Pain: 8 (slight improvement from yesterday)
Objective Data
-
Objective Data:
Vital Signs
Temp Pulse Resp BP Pulse Ox
97.7 F 89 18 104/68 98
02/12/24 09:46 02/12/24 09:46 02/12/24 09:46 02/12/24 09:46 02/12/24 09:46
Laboratory Results
02/11/24 07:26
02/11/24 07:26
Total Protein 6.0 g/dl (6.3-8.2) L 02/10/24 07:59
Albumin 3.3 g/dl (3.5-5.0) L 02/10/24 07:59
Palliative Performance Scale
Palliative Performance Scale:
PPS Level Ambulation Activity & Evidence of Disease Self Care Intake Conscious Level
100% Full Normal Activity & Work; Full Intake Full
No Evidence of Disease
90% Full Normal Activity & Work; Full Normal Full
Some Evidence of Disease
80% Full Normal Activity with Effort Full Normal or Full
Some Evidence of Disease Reduced
70% Reduced Unable Normal Job/Work Full Normal or Full
Significant Disease Reduced
60% Reduced Unable Hobby/Housework Occasional Normal or Full or Confusion
Significant Disease Assistance Reduced
50% Mainly Sit/Lie Unable to do Any Work Considerable Normal or Full or Confusion
Extensive Disease Assistance Req'd Reduced
40% Mainly in Bed Unable to do Most Activity Mainly Assistance Normal or Full or Drowsy;
Extensive Disease Reduced +/- Confusion
30% Totally Bed Unable to do Any Activity Total Care Normal or Full or Drowsy;
Bound Extensive Disease Reduced +/- Confusion
20% Totally Bed Bound Unable to do Any Activity Total Care Minimal to Full or Drowsy;
Extensive Disease Sips +/- Confusion
10% Totally Bed Bound Unable to do Any Activity Total Care Mouth Care Drowsy or Coma;
Extensive Disease Only +/- Confusion
0%
PPS Score Level: 50
Physical Exam
-
General: Other (Appears uncomfortable, chronically ill, prefers to lay on side. )
Respiratory: Non Labores Respirations
Rectal: Deferred by Provider (drain in place left buttock)
Care Reviewed
Data Reviewed
Radiology procedure: Image Reviewed
Reviewed with: Patient
Time
Start Date: 02/12/24
Start Time: 12:50
Stop Date: 02/12/24
Stop Time: 13:26
Time Spent:
36
--- NOTE | 2024-02-12 15:12 | W.PN.UPDATE ---
Update Note
Progress Note Update
I saw and evaluated the patient. I reviewed the resident�s note and agree with findings and plan as documented in the resident�s note.
Patient feels improved from the pain ;today was apologetic about her interactions with me the other day. She is requesting to get a urinalysis checked as she has got some dysuria. Check UA.
Explained to her that her pain is from necrotic tumor ; tube study showed possible communicating fitstula to either skin or rectal. She did feel with the tube study something started to drain to the right leg. She was advised that if she take of
the tube then she will have persistent drainage which will soil her garments and would need a dressing.Also can turn into infective abscess.
She is still thinking on the surgical recs ;has not made of her mind yet.
DC depending on UA
[2024-02-12 17:09] VITALS: BP 104/63
[2024-02-12 18:24] LABS: Urine Albumin Negative (Neg - Trace); Urine Bilirubin Negative (Negative); Urine Character Clear (Clear); Urine Color Yellow; Urine Glucose Negative (Negative); Urine Ketone Negative (Negative); Urine Leukocyte 1+ (Negative); Urine Nitrite Negative (Negative); Urine Occult Blood Negative (Negative); Urine Specific Gravity 1.015 (<1.030); Urine Urobilinogen Negative (Neg - 1+)
[2024-02-12 18:29] LABS: Urine Bacteria Moderate (Negative)
[2024-02-12 18:30] LABS: Urine Red Blood Cell 0-2 /HPF (0-2); Urine White Cell 16-20 /HPF (0-5)
[2024-02-12] MEDS: NEURONTIN 200 MG PO (20:51)
[2024-02-12] MEDS: COLACE 200 MG PO (20:51)
[2024-02-12] MEDS: HEPARIN SC (20:52)
[2024-02-12 23:25] VITALS: BP 91/60
[2024-02-13] MEDS: PERCOCET 5/325 1 TABLET PO ×3 (05:57→17:49)
[2024-02-13] MEDS: DILAUDID 0.5 MG IV ×2 (06:22→20:34)
[2024-02-13 07:45] VITALS: BP 97/58
[2024-02-13] MEDS: STERILE WATER FOR INJECTION 10 ML IV (09:07)
[2024-02-13] MEDS: MIRALAX 17 GRAMS PO (09:08)
[2024-02-13] MEDS: ROCEPHIN 1000 MG IV (09:08)
[2024-02-13] MEDS: THERAGRAN 1 TABLET PO (09:08)
[2024-02-13] MEDS: HEPARIN 5000 UNITS SC ×2 (09:08→20:35)
--- NOTE | 2024-02-13 09:28 | W.PN.HOSP.TC ---
Today's Communication/Plan
-
Continue to provide supportive counseling in regards to patient's advanced disease process. Patient awaits results from her urine culture in order to get closure in regards to her ongoing concerns of urinary tract infection. Will move forward with
discharge planning once patient is aware that many of her current symptoms are likely caused by her ongoing malignancy.
Assessment / Plan
Assessment / Plan
- Persistent pelvic fluid collection likely underlying anal squamous cell carcinoma rather than persistent abscess
Status post IR drainage with KORTNEY drain in November
Recent imaging studies of fluid collection suggesting that this is due to necrotic tumor rather than abscess which was previously
CT abdomen pelvis shows redemonstration of large complex pelvic collection with percutaneous drainage catheter in the left lateral aspect of the collection concerning for necrotic malignancy in the setting of known squamous cell carcinoma of the
anus
Colorectal surgery consulted - Upon further assessment there is no indication for urgent surgery at this time. The patient has been offered the option of pursuing surgery with Dr. Healy and it will require extensive surgical planning involving
medical oncology and plastic surgery. -Patient stated that she would want the drain removed but was explained that if removed she would probably need another drain in the near future. Drains would not resolve the situation and surgery was offered
and the patient was amenable to being seen by palliative care. Palliative care saw the patient and discussed goals of care.
Pain control with Dilaudid, ibuprofen, Percocet 1 tablet every 6 hours, gabapentin 200 mg and lidocaine cream added -pain controlled
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
March 2022 she underwent a laparoscopic sigmoid loop colostomy for perforated cancer and biopsies revealed a well-differentiated squamous cell carcinoma. She then underwent chemoradiation with 5-FU mitomycin-C from April to May in 2021.
Due to her feeling better she stopped treatment. After her symptoms reoccurred she resumed chemoradiation from November 2022 to January 2023 and it was discontinued after the linear accelerator broke. She has been to multiple hospitals including [facility]
[place] and [facility] due to infection of the anal area and has undergone bedside drainage of the abscesses and treated with antibiotics.
On examination by Dr. Douglas, colorectal surgeon at [place], there was complete obliteration of the anal canal with tumor located 2 cm from the anal verge. The plan was for a PET/CT and MRI of the pelvis for consideration of an abdominoperineal
resection. She was also referred to palliative/ addiction medicine due to an opioid dependence.
An MRI in August 2023 was consistent with a Stage IIIa ([id number]) cancer. She was seen by Dr. Murillo at [facility] from medical oncology and chemotherapy and immunotherapy was discussed but not pursued due to the presence of the infection.
Palliative Consult -palliative met with patient and discussed the course of her disease. They discussed goals for care and patient remains considering social surgical options at this time. They recommended pain management with 1 tablet of
Percocet every 6 hours as needed. They advised that Dilaudid IV continue as needed for now. They suggested gabapentin 200 mg/day, and lidocaine/Prilocane ointment every 8 hours as needed. Patient was advised to consider outpatient referral to
interventional pain management with Dr. Mireles for block. Opioid risk tool high - likely home visits will be needed.
- Constipation - Monitoring
Continue bowel regimen -Milk of magnesia
- Opioid Dependence:
Monitoring for opioid withdrawal
Anticipated Discharge: 24 - 48 hours
Subjective/Interval History
-
Date of Service: February 13, 2024
Met with patient at the bedside. She is doing better and believes her pain is better controlled. Patient did not sleep well last night but that was due to loud noises out in the hallway and next-door. She inquired about her urine analysis and was
hoping to hear about her results.
Objective Data
-
Vital Signs:
Vital Signs
Temp Pulse Resp BP Pulse Ox
98.4 F 90 18 97/58 98
02/13/24 07:45 02/13/24 07:45 02/13/24 07:45 02/13/24 07:45 02/13/24 07:45
I&O
02/12/24 02/13/24 02/14/24
06:59 06:59 06:59
Intake Total 1720 / 1720 1085 / 1085
Output Total 100 / 100
Balance 1720 / 1720 985 / 985
Review of Systems
-
History Source: Patient
Constitutional: Reports No Symptoms
EENT: Reports No Symptoms Reported
Respiratory: Reports No Symptoms
Cardiac: Reports No Symptoms
Abdomen/GI: Reports Pain
Breast: Reports No Symptoms
Genitourinary: Reports No Symptoms
Musculoskeletal: Reports No Symptoms
Skin: Reports No Symptoms
Neuro: Reports No Symptoms
Endocrine: Reports No Symptoms
Hematologic / Lymphatic: Reports No Symptoms
Allergy / Immunology: Reports No Symptoms
Physical Exam
-
General: Well Developed and No Apparent Distress
HEENT: Normocephalic, Atraumatic and Moist Mucous Membranes
Respiratory: Clear to Auscultation
Cardiac: Regular Rhythm and S1/S2
Breast: Deferred by me
GI: Ostomy and Other (IR Drain)
Rectal: Deferred by Provider
Genito-urinary: Deferred by me
Musculoskeletal: No Clubbing, No Cyanosis and No Edema
Skin: Warm and Dry
Neuro: Nonfocal/Grossly Intact
--- NOTE | 2024-02-13 13:03 | W.PN.UPDATE ---
Update Note
Progress Note Update
I saw and evaluated the patient. I reviewed the resident�s note and agree with findings and plan as documented in the resident�s note.
Still discomfort in the perineal area. She is fixated that it is because of the drainage catheter despite being told it is local necrotic tumor and she is hoping that we take it off and she would want to see how she does without it. If it
needs to go back and she is happy to get it back again. She was advised that removing the KORTNEY drain from the necrotic tumor cavity could secondarily get infected if no adequate drainage and also she will have possibility of continuous drainage from
the fistulous track she has to the surface of skin vs rectum. She is aware about all this and still would like to go ahead with dcing the KORTNEY drain.
She is getting ok pain relief based on the current usage of her pain medication. She is constipated. Add milk of magnesia. And add protein supplements.
She is got a positive urinalysis over the symptom of dysuria. She is started on antibiotics. Follow culture data.
Will DC home once the KORTNEY drain is removed.
[2024-02-13] MEDS: MILK OF MAGNESIA 30 ML PO (15:21)
[2024-02-13 17:24] VITALS: BP 101/62
[2024-02-13] MEDS: NEURONTIN 200 MG PO (22:03)
[2024-02-13] MEDS: COLACE 200 MG PO (22:04)
[2024-02-13 23:57] VITALS: BP 104/65
[2024-02-14] MEDS: PERCOCET 5/325 1 TABLET PO ×3 (00:14→13:27)
[2024-02-14] MEDS: DILAUDID 0.5 MG IV ×2 (00:16→21:29)
[2024-02-14 07:00] VITALS: BP 86/60
--- NOTE | 2024-02-14 09:16 | W.PN.HOSP.TC ---
Today's Communication/Plan
-
Continue to treat UTI with Rocephin. Await follow-up with IR in regards to KORTNEY drain removal as per patient wishes. Will likely discharge home once KORTNEY drain is removed.
Assessment / Plan
Assessment / Plan
- Persistent pelvic fluid collection likely underlying anal squamous cell carcinoma rather than persistent abscess
Status post IR drainage with KORTNEY drain in November
Recent imaging studies of fluid collection suggesting that this is due to necrotic tumor rather than abscess which was previously
CT abdomen pelvis shows redemonstration of large complex pelvic collection with percutaneous drainage catheter in the left lateral aspect of the collection concerning for necrotic malignancy in the setting of known squamous cell carcinoma of the
anus
Colorectal surgery consulted - Upon further assessment there is no indication for urgent surgery at this time. The patient has been offered the option of pursuing surgery with Dr. Healy and it will require extensive surgical planning involving
medical oncology and plastic surgery. -Patient stated that she would want the drain removed but was explained that if removed she would probably need another drain in the near future. Drains would not resolve the situation and surgery was offered
and the patient was amenable to being seen by palliative care. Palliative care saw the patient and discussed goals of care.
Pain control with Dilaudid, ibuprofen, Percocet 1 tablet every 6 hours, gabapentin 200 mg and lidocaine cream added -pain controlled
Will discuss with IR in regards to removing KORTNEY drain as per patient's wishes.
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
March 2022 she underwent a laparoscopic sigmoid loop colostomy for perforated cancer and biopsies revealed a well-differentiated squamous cell carcinoma. She then underwent chemoradiation with 5-FU mitomycin-C from April to May in 2021.
Due to her feeling better she stopped treatment. After her symptoms reoccurred she resumed chemoradiation from November 2022 to January 2023 and it was discontinued after the linear accelerator broke. She has been to multiple hospitals including [facility]
[place] and [facility] due to infection of the anal area and has undergone bedside drainage of the abscesses and treated with antibiotics.
On examination by Dr. Douglas, colorectal surgeon at [place], there was complete obliteration of the anal canal with tumor located 2 cm from the anal verge. The plan was for a PET/CT and MRI of the pelvis for consideration of an abdominoperineal
resection. She was also referred to palliative/ addiction medicine due to an opioid dependence.
An MRI in August 2023 was consistent with a Stage IIIa ([id number]) cancer. She was seen by Dr. Murillo at [facility] from medical oncology and chemotherapy and immunotherapy was discussed but not pursued due to the presence of the infection.
Palliative Consult -palliative met with patient and discussed the course of her disease. They discussed goals for care and patient remains considering social surgical options at this time. They recommended pain management with 1 tablet of
Percocet every 6 hours as needed. They advised that Dilaudid IV continue as needed for now. They suggested gabapentin 200 mg/day, and lidocaine/Prilocane ointment every 8 hours as needed. Patient was advised to consider outpatient referral to
interventional pain management with Dr. Mireles for block. Opioid risk tool high - likely home visits will be needed.
-UTI:
Patient had concerns about UTI symptoms and urine analysis was conducted showing elevated leukocyte Estrace, white blood cells in urine, and urine bacteria.
Currently treating with Rocephin
- Constipation - Monitoring
Continue bowel regimen -Milk of magnesia
- Opioid Dependence:
Monitoring for opioid withdrawal
Anticipated Discharge: 24 - 48 hours
Subjective/Interval History
-
Date of Service: February 14, 2024
Met with patient at the bedside. She was sleeping earlier in the morning and after waking up she felt better rested. She still has discomfort in the perianal area. Patient is aware that she has a local necrotic tumor and the drainage catheter
helps ensure that there will not be any continuous drainage from the fistulous track she has to the surface of the skin and rectum. She still hopes to go through with removing the KORTNEY drain and decide from there.
Objective Data
-
Vital Signs:
Vital Signs
Temp Pulse Resp BP Pulse Ox
98.6 F 108 18 86/60 97
02/14/24 07:00 02/14/24 07:00 02/14/24 07:00 02/14/24 07:00 02/14/24 07:00
I&O
02/13/24 02/14/24 02/15/24
06:59 06:59 06:59
Intake Total 1085 / 1085 1200 / 1200
Output Total 100 / 100
Balance 985 / 985 1200 / 1200
Physical Exam
-
General: Well Developed, Appears Chronically Ill and Cachectic
HEENT: Normocephalic, Atraumatic and Moist Mucous Membranes
Respiratory: Clear to Auscultation
Cardiac: Regular Rhythm and S1/S2
Breast: Deferred by me
GI: Ostomy and Other (KORTNEY Drain)
Rectal: Deferred by Provider
Genito-urinary: Deferred by me
Musculoskeletal: No Clubbing, No Cyanosis and No Edema
Skin: Warm and Dry
Neuro: Nonfocal/Grossly Intact
[2024-02-14] MEDS: ROCEPHIN 1000 MG IV (09:52)
[2024-02-14] MEDS: MIRALAX 17 GRAMS PO (09:53)
[2024-02-14] MEDS: HEPARIN SC ×2 (09:53→21:36)
[2024-02-14] MEDS: STERILE WATER FOR INJECTION 10 ML IV (09:54)
[2024-02-14] MEDS: THERAGRAN 1 TABLET PO (09:54)
[2024-02-14] MEDS: MILK OF MAGNESIA 30 ML PO (13:27)
--- NOTE | 2024-02-14 13:35 | W.PN.UPDATE ---
Update Note
Progress Note Update
I saw and evaluated the patient. I reviewed the resident�s note and agree with findings and plan as documented in the resident�s note.
She is eating okay. No fever or chills. No nausea vomiting. No abdominal pain.
Still complains of dysuria but not much frequency. Urine analysis was positive but urine culture shows nonsignificant bacteriuria of mixed sanna concerning for contamination. Patient advised that she could benefit to using a straight cath specimen
which she is refusing. In view of her ongoing dysuria we will treat with 5 days of antibiotics and follow her symptom . She is agreeable to get straight cath specimen if no better. She is aware about disorganised local anatomy of perineum.
She is still inclined to get rid of the KORTNEY drain tomorrow and try without it and if needed will have it back . She clearly known the risk of its removal.
Pain from perineum seems better.
Consult IR in am for removal of KORTNEY drain and DC home with close follow up .
[2024-02-14 15:00] VITALS: BP 93/58
[2024-02-14] MEDS: PERCOCET 5/325 PO (17:35)
[2024-02-14] MEDS: NEURONTIN 200 MG PO (21:29)
[2024-02-14] MEDS: COLACE PO (21:37)
[2024-02-14 23:35] VITALS: BP 114/55
[2024-02-15] MEDS: DILAUDID 0.5 MG IV ×3 (04:43→21:49)
[2024-02-15] MEDS: PERCOCET 5/325 1 TABLET PO ×4 (04:44→23:47)
[2024-02-15] MEDS: PERCOCET 5/325 PO (05:17)
[2024-02-15] MEDS: MIRALAX PO (10:06)
[2024-02-15] MEDS: ROCEPHIN 1000 MG IV (10:06)
[2024-02-15] MEDS: STERILE WATER FOR INJECTION 10 ML IV (10:06)
[2024-02-15] MEDS: HEPARIN SC ×2 (10:06→20:13)
[2024-02-15] MEDS: THERAGRAN 1 TABLET PO (10:06)
[2024-02-15 10:08] VITALS: BP 114/75
--- NOTE | 2024-02-15 10:57 | W.PN.PAL2 ---
Today's Communication
-
.
Assessment / Plan
-
Assessment/Plan:
Cancer related pain
- continue gabapentin 200mg qhs + percocet 1 tab q 6h hours scheduled
Medication related constipation
continue miralax
Home needs: palliative [facility] follow up scheduled for 02/23 1pm.
The above recommendations were discussed with the patient and medical team.
Reason for Admission
Illness Course/HPI
Patient seen for palliative care follow up
Pain controlled over the weekend. required 1-2 prn hydromorphone per day.
Patient reports started on antibiotics over the weekend, and possible tube removal with IR was discussed with hospitalist yesterday, and she reports potential discharge home in the near future.
Discussed palliative care outpatient follow up, home visit scheduled for 02/23 1pm. No changes to medications at todays visit.
Functional Status & Support Systems
Current Functional Status:
At her baseline she is independent, able to ambulate short distances and provdes for her own personal care needs. Lately due to pain she has been spending more time in bed.
She is not driving currently.
Home help: DH homecare
Caregivers: lives alone
Support: Supported by her exhusband and family, and their 16 year old son. Patient has a 34 y/o son who lives in [place] (Jasen is her medical poa), and a 31 year old daughter who lives in [facility].
Equipment at home: she reports no DME.
ADLS: Moderate Assistance
Review of Advanced Directives
Type of Documentation: Medical Power of Sap Bobj Developer (Not in chart - patient reports her son Jasen is her medical POA)
Preferences Regarding Resuscitation at End of Life: DNR
Pain & Symptom Assessment
Patient Symptoms
Patient Symptoms: Pain (Pain symptoms stable and controlled on percocet q6 hours plus gabapentin at bedtime. pain in lower perineum/rectal area. no new pain. ) and Constipation (constipation resolved over the weekend, reports large loose bm into
ostomy over weekend. )
Objective Data
-
Objective Data:
Vital Signs
Temp Pulse Resp BP Pulse Ox
97.9 F 107 18 114/75 98
02/15/24 10:08 02/15/24 10:08 02/15/24 10:08 02/15/24 10:08 02/15/24 10:08
Laboratory Results
02/11/24 07:26
02/11/24 07:26
Total Protein 6.0 g/dl (6.3-8.2) L 02/10/24 07:59
Albumin 3.3 g/dl (3.5-5.0) L 02/10/24 07:59
Urine Color Yellow 02/12/24 18:17
Urine Clarity Clear (Clear) 02/12/24 18:17
Urine pH 7.0 (5.0-9.0) 02/12/24 18:17
Ur Specific [place] 1.015 (<1.030) 02/12/24 18:17
Urine Ketones Negative (Negative) 02/12/24 18:17
Urine Bilirubin Negative (Negative) 02/12/24 18:17
Palliative Performance Scale
Palliative Performance Scale:
PPS Level Ambulation Activity & Evidence of Disease Self Care Intake Conscious Level
100% Full Normal Activity & Work; Full Intake Full
No Evidence of Disease
90% Full Normal Activity & Work; Full Normal Full
Some Evidence of Disease
80% Full Normal Activity with Effort Full Normal or Full
Some Evidence of Disease Reduced
70% Reduced Unable Normal Job/Work Full Normal or Full
Significant Disease Reduced
60% Reduced Unable Hobby/Housework Occasional Normal or Full or Confusion
Significant Disease Assistance Reduced
50% Mainly Sit/Lie Unable to do Any Work Considerable Normal or Full or Confusion
Extensive Disease Assistance Req'd Reduced
40% Mainly in Bed Unable to do Most Activity Mainly Assistance Normal or Full or Drowsy;
Extensive Disease Reduced +/- Confusion
30% Totally Bed Unable to do Any Activity Total Care Normal or Full or Drowsy;
Bound Extensive Disease Reduced +/- Confusion
20% Totally Bed Bound Unable to do Any Activity Total Care Minimal to Full or Drowsy;
Extensive Disease Sips +/- Confusion
10% Totally Bed Bound Unable to do Any Activity Total Care Mouth Care Drowsy or Coma;
Extensive Disease Only +/- Confusion
0%
PPS Score Level: 50
Physical Exam
-
General: No Apparent Distress and Comfortable
HEENT: Normocephalic and Moist Mucous Membranes
Care Reviewed
Time
Start Date: 02/15/24
Start Time: 09:00
Stop Date: 02/15/24
Stop Time: 09:20
Time Spent:
20
[2024-02-15 13:56] VITALS: BP 112/80; BP_SYST 85
--- NOTE | 2024-02-15 13:57 | W.PN.UPDATE ---
Update Note
Progress Note Update
Discussed at length with Sonia the risks and benefits of her drain removal including persistent leakage from the cutaneous insertion site since she continues with high outputs, delayed/nonhealing of the cutaneous insertion site. We advised her
that if we remove the drain today we will not replace it since it is not an abscess but necrotizing tumor. She understands the risks of drain removal and is still requesting we take the drain out.
[2024-02-15 14:20] VITALS: BP 98/68
[2024-02-15 15:43] VITALS: BP 108/63
--- NOTE | 2024-02-15 16:07 | CM ---
Patient seen at bedside with physician. Patient stated that she lives alone and her plan is to return [facility] and Palliative Care to follow her. Patient has a KORTNEY drain and is requesting the drain to be removed. CM will continue to follow
for discharge planning needs.
Plan; [facility] and Palliative care to follow at discharge
--- NOTE | 2024-02-15 18:45 | W.PN.HOSP.TC ---
Addendum entered and electronically signed by Yakelin Garcia MD 02/15/24 19:40:
I saw and evaluated the patient independently. I reviewed the resident�s note and agree with findings and plan as documented by Dr. Stafford.
GENERAL: chronically ill appearing, cachectic in no apparent distress
HEENT: NC/AT--no O2 requirements
HEART: regular rate and rhythm, +S1, +S2
LUNGS : clear to auscultation bilaterally
ABDOM: soft, nontender, nondistended, + bowel sounds, ostomy with stool
EXT: no cyanosis, clubbing, or edema
NEUROLOGIC: grossly intact
: rectal area with drain--firmness to surrounding tissue (vulvar and perineum)
Persistent pelvic fluid collection likely underlying anal squamous cell carcinoma rather than persistent abscess--Status post IR drainage with KORTNEY drain in November--Recent imaging studies of fluid collection suggesting that this is due to necrotic tumor
rather than abscess --CT abdomen pelvis shows re-demonstration of large complex pelvic collection with percutaneous drainage catheter in the left lateral aspect of the collection concerning for necrotic malignancy in the setting of known squamous
cell carcinoma of the anus--apprec CRS--no urgent surgery but that was offered--will require extensive surgical planning involving medical oncology and plastic surgery -Patient wants the drain removed but was explained that if removed she would
probably need another drain in the near future. Drains would not resolve the situation --Palliative care discussions ongoing
History of anal cancer status post ostomy 2021 with history of perirectal fistula--March 2022 she underwent a laparoscopic sigmoid loop colostomy for perforated cancer and biopsies revealed a well-differentiated squamous cell carcinoma. She
then underwent chemoradiation with 5-FU mitomycin-C from April to May in 2021. Due to her feeling better she stopped treatment. After her symptoms reoccurred she resumed chemoradiation from November 2022 to January 2023 and it was discontinued
after the linear accelerator broke. She has been to multiple hospitals including [facility] and [facility] due to infection of the anal area and has undergone bedside drainage of the abscesses and treated with
antibiotics--On examination by Dr. Douglas, colorectal surgeon at [place], there was complete obliteration of the anal canal with tumor located 2 cm from the anal verge. The plan was for a PET/CT and MRI of the pelvis for consideration of an
abdominoperineal resection. She was also referred to palliative/ addiction medicine due to an opioid dependence--An MRI in August 2023 was consistent with a Stage IIIa ([id number]) cancer. She was seen by Dr. Murillo at [facility] from medical oncology and
chemotherapy and immunotherapy was discussed but not pursued due to the presence of the infection.
UTI--Patient had concerns about UTI symptoms and urine analysis was conducted showing elevated leukocyte Estrace, white blood cells in urine, and urine bacteria--Currently treating with Rocephin but urine culture with mixed sanna 25K colonies
consistent with contamination--can stop rocephin
Constipation -Continue bowel regimen -Milk of magnesia
Opioid Dependence--Monitoring for opioid withdrawal
Code status -- DNR
Original Note:
Today's Communication/Plan
-
-continued pain in the anorectal area.
-plan for drain removal per patient request
- follow-up with surgery as outpatient
Assessment / Plan
Assessment / Plan
Patient continues to be in pain and wants the drain removed.
-Persistent pelvic fluid collection likely underlying anal squamous cell carcinoma rather than persistent abscess
Status post IR drainage with KORTNEY drain in November
Recent imaging studies of fluid collection suggesting that this is due to necrotic tumor rather than abscess which was previously
CT abdomen pelvis shows redemonstration of large complex pelvic collection with percutaneous drainage catheter in the left lateral aspect of the collection concerning for necrotic malignancy in the setting of known squamous cell carcinoma of the
anus
Colorectal surgery consulted - Upon further assessment there is no indication for urgent surgery at this time. The patient has been offered the option of pursuing surgery with Dr. Healy and it will require extensive surgical planning involving
medical oncology and plastic surgery. -Patient stated that she would want the drain removed but was explained that if removed she would probably need another drain in the near future. Drains would not resolve the situation and surgery was offered
and the patient was amenable to being seen by palliative care. Palliative care saw the patient and discussed goals of care.
Pain control with Dilaudid, ibuprofen, Percocet 1 tablet every 6 hours, gabapentin 200 mg and lidocaine cream added -pain controlled
IR discussed risks of drain removal with the patient but patient is still requesting.
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
March 2022 she underwent a laparoscopic sigmoid loop colostomy for perforated cancer and biopsies revealed a well-differentiated squamous cell carcinoma. She then underwent chemoradiation with 5-FU mitomycin-C from April to May in 2021.
Due to her feeling better she stopped treatment. After her symptoms reoccurred she resumed chemoradiation from November 2022 to January 2023 and it was discontinued after the linear accelerator broke. She has been to multiple hospitals including [facility] and [facility] due to infection of the anal area and has undergone bedside drainage of the abscesses and treated with antibiotics.
On examination by Dr. Douglas, colorectal surgeon at [place], there was complete obliteration of the anal canal with tumor located 2 cm from the anal verge. The plan was for a PET/CT and MRI of the pelvis for consideration of an abdominoperineal
resection. She was also referred to palliative/ addiction medicine due to an opioid dependence.
An MRI in August 2023 was consistent with a Stage IIIa ([id number]) cancer. She was seen by Dr. Murillo at [facility] from medical oncology and chemotherapy and immunotherapy was discussed but not pursued due to the presence of the infection.
Palliative Consult -palliative met with patient and discussed the course of her disease. They discussed goals for care and patient remains considering social surgical options at this time. They recommended pain management with 1 tablet of
Percocet every 6 hours as needed. They advised that Dilaudid IV continue as needed for now. They suggested gabapentin 200 mg/day, and lidocaine/Prilocane ointment every 8 hours as needed. Patient was advised to consider outpatient referral to
interventional pain management with Dr. Mireles for block. Opioid risk tool high - likely home visits will be needed.
-UTI:
Patient had concerns about UTI symptoms and urine analysis was conducted showing elevated leukocyte Estrace, white blood cells in urine, and urine bacteria.
Currently treating with Rocephin
- Constipation - Monitoring
Continue bowel regimen -Milk of magnesia
- Opioid Dependence:
Monitoring for opioid withdrawal
Code DNR
Anticipated Discharge: 24 - 48 hours
Subjective/Interval History
-
Date of Service: February 15, 2024
Objective Data
-
Vital Signs:
Vital Signs
Temp Pulse Resp BP Pulse Ox
98.4 F 90 17 108/63 99
02/15/24 15:43 02/15/24 15:43 02/15/24 15:43 02/15/24 15:43 02/15/24 15:43
I&O
02/14/24 02/15/24 02/16/24
06:59 06:59 06:59
Intake Total 1200 / 1200 1979 / 1979 180 / 180
Output Total 90 / 90
Balance 1200 / 1200 1890 / 1890 180 / 180
Review of Systems
-
History Source: Patient
Constitutional: Reports No Symptoms
EENT: Reports No Symptoms Reported
Respiratory: Reports No Symptoms
Cardiac: Reports No Symptoms
Abdomen/GI: Reports Pain
Breast: Reports No Symptoms
Genitourinary: Reports No Symptoms
Skin: Reports No Symptoms
Neuro: Reports No Symptoms
Endocrine: Reports No Symptoms
Hematologic / Lymphatic: Reports No Symptoms
Allergy / Immunology: Reports No Symptoms
Psych: Reports Depressed
Physical Exam
-
General: Well Developed, Appears Chronically Ill and Cachectic
HEENT: Normocephalic, Atraumatic and Moist Mucous Membranes
Respiratory: Clear to Auscultation
Cardiac: Regular Rhythm and S1/S2
Breast: Deferred by me
GI: Ostomy and Other (KORTNEY Drain)
Rectal: Deferred by Provider
Genito-urinary: Deferred by me
Musculoskeletal: No Clubbing, No Cyanosis and No Edema
Skin: Warm and Dry
Neuro: Nonfocal/Grossly Intact
[2024-02-15] MEDS: COLACE 200 MG PO (21:45)
[2024-02-15] MEDS: NEURONTIN 200 MG PO (21:45)
[2024-02-15 23:40] VITALS: BP 90/57
[2024-02-15] MEDS: LMX 4 1 APPLIC TOPICAL (23:48)
[2024-02-16] MEDS: DILAUDID 0.5 MG IV ×3 (03:35→13:47)
[2024-02-16] MEDS: CATHFLO/ACTIVASE 2 MG IV (05:15)
--- NOTE | 2024-02-16 05:27 | VATNOTE ---
NO BLOOD RETURN FROM R SUBQ PRT. PRT FLUSHES WELL. PT REPORTS SHE WAS TOLD TWO DAYS AGO 'THAT PORT WAS NOT WORKING'. CATHFLO PER PROTOCOL. WILL FOLLOW AND ATTEMPT TO OBTAIN AM LABS FROM SUBQ PRT AFTER CATHFLO DWELL TIME COMPLETED.
[2024-02-16] MEDS: PERCOCET 5/325 1 TABLET PO ×3 (06:23→17:29)
--- NOTE | 2024-02-16 06:37 | VATNOTE ---
CATH RAH ASPIRATED FROM R SUBQ PRT AND EXCELLENT BR OBTAINED. AM LABS DRAWN ORDERED. PCN AWARE OF INTERVENTION AND OUTCOME.
[2024-02-16 07:00] VITALS: BP 96/65
[2024-02-16 07:32] LABS: % Basophils 0.6 % (0-2); % Eosinophils 13.4 % (0-6); % Immature Granulocytes 0.3 % (0-0.5); % Lymphocytes 7.5 % (20.5-51.1); % Monocytes 7.3 % (1.7-9.3); % Neutrophils 70.9 % (42.2-75.2); Absolute Basophils 0.1 10^3/uL (0-0.2); Absolute Eosinophils 1.2 10^3/uL (0-0.7); Absolute Lymphocytes 0.6 10^3/uL (1.2-3.4); Absolute Monocytes 0.6 10^3/uL (0.1-0.6); Absolute Neutrophils 6.1 10^3/uL (1.4-6.5); Hematocrit 34.4 % (37.0-47.0); Hemoglobin 11.3 g/dL (12.0-16.0); Mean Corp Hgb Conc. 32.8 g/dL (33.0-37.0); Mean Corpuscular Hgb 29.5 pg (27.0-31.0); Mean Corpuscular Volume 89.8 fL (81.0-99.0); Mean Platelet Volume 8.5 fL (7.4-10.4); Nucleated Red Blood Cells % 0 %; Platelet Count 343 10^3/uL (130-400); Red Blood Cell Count 3.83 10^6/uL (4.20-5.40); Red Cell Dist. Width 14.1 % (11.5-14.5); White Blood Cell Count 8.6 10^3/uL (4.8-10.8)
[2024-02-16 07:49] LABS: Blood Urea Nitrogen 20 mg/dl (7-17); Calcium 9.8 mg/dl (8.4-10.2); Carbon Dioxide 29 mmol/L (22-30); Chloride 101 mmol/L (98-107); Estimated Creatinine Clearance 65 ml/min; Glucose 93 mg/dl (70-99); Potassium 4.6 mmol/L (3.5-5.1); Sodium 136 mmol/L (135-145); eGFR > 60.00
[2024-02-16] MEDS: HEPARIN SC (09:33)
[2024-02-16] MEDS: MIRALAX PO (09:33)
[2024-02-16] MEDS: THERAGRAN 1 TABLET PO (09:34)
[2024-02-16] MEDS: ROCEPHIN 1000 MG IV (09:40)
[2024-02-16] MEDS: STERILE WATER FOR INJECTION 10 ML IV (09:40)
--- NOTE | 2024-02-16 13:54 | CM ---
Addendum entered by Alesha Brown 02/16/24 14:16:
patient going to address of [address] [place] [address] in [place], CM will update liaison and pharmacy is [facility] in [place]
Original Note:
Patient seen at bedside. Patient has ride approx 5pm. nursing updated. Patient plan is home with [facility] and Palliative care to follow with patient. CM will continue to follow for discharge planning needs.
Plan; home with [facility] and Palliative care
[2024-02-16 15:00] VITALS: BP 121/73
--- NOTE | 2024-02-16 15:29 | W.PN.HOSP.TC ---
Addendum entered and electronically signed by Yakelin Garcia MD 02/16/24 18:25:
I saw and evaluated the patient independently. I reviewed the resident�s note and agree with findings and plan as documented by Dr. Stafford.
GENERAL: chronically ill appearing, cachectic in no apparent distress
HEENT: NC/AT--no O2 requirements
HEART: regular rate and rhythm, +S1, +S2
LUNGS : clear to auscultation bilaterally
ABDOM: soft, nontender, nondistended, + bowel sounds, ostomy with stool
EXT: no cyanosis, clubbing, or edema
NEUROLOGIC: grossly intact
Persistent pelvic fluid collection likely underlying anal squamous cell carcinoma rather than persistent abscess--Status post IR drainage with KORTNEY drain in November--Recent imaging studies of fluid collection suggesting that this is due to necrotic tumor
rather than abscess --CT abdomen pelvis shows re-demonstration of large complex pelvic collection with percutaneous drainage catheter in the left lateral aspect of the collection concerning for necrotic malignancy in the setting of known squamous
cell carcinoma of the anus--apprec CRS--no urgent surgery but that was offered--will require extensive surgical planning involving medical oncology and plastic surgery--s/p rectal IR drain removed--Palliative care discussions ongoing--pt wishes for
abx to go home despite explanations of no infection, will send on abx for now
History of anal cancer status post ostomy 2021 with history of perirectal fistula--March 2022 she underwent a laparoscopic sigmoid loop colostomy for perforated cancer and biopsies revealed a well-differentiated squamous cell carcinoma. She
then underwent chemoradiation with 5-FU mitomycin-C from April to May in 2021. Due to her feeling better she stopped treatment. After her symptoms reoccurred she resumed chemoradiation from November 2022 to January 2023 and it was discontinued
after the linear accelerator broke. She has been to multiple hospitals including [facility] due to infection of the anal area and has undergone bedside drainage of the abscesses and treated with
antibiotics--On examination by Dr. Douglas, colorectal surgeon at [place], there was complete obliteration of the anal canal with tumor located 2 cm from the anal verge. The plan was for a PET/CT and MRI of the pelvis for consideration of an
abdominoperineal resection. She was also referred to palliative/addiction medicine due to an opioid dependence--An MRI in August 2023 was consistent with a Stage IIIa ([id number]) cancer. She was seen by Dr. Murillo at [facility] from medical oncology and
chemotherapy and immunotherapy was discussed but not pursued due to the presence of the infection.
UTI--Patient had concerns about UTI symptoms and urine analysis was conducted showing elevated leukocyte Estrace, white blood cells in urine, and urine bacteria--Currently treating with Rocephin but urine culture with mixed sanna 25K colonies
consistent with contamination, not UTI--can stop rocephin
Constipation -Continue bowel regimen -Milk of magnesia
Opioid Dependence--Monitoring for opioid withdrawal
Code status -- DNR
Original Note:
Today's Communication/Plan
-
Discussed with patient the benefits of follow-up surgery as an outpatient.
Patient will be discharged home today.
Outpatient palliative care follow-up scheduled for 02/23.
Assessment / Plan
Assessment / Plan
Patient had the drain removed yesterday by IR. Patient feels relieved by drain removal. Notes pain persistent in the anorectal area.
-Persistent pelvic fluid collection likely underlying anal squamous cell carcinoma rather than persistent abscess
Status post IR drainage with KORTNEY drain in November
Recent imaging studies of fluid collection suggesting that this is due to necrotic tumor rather than abscess which was previously
CT abdomen pelvis shows redemonstration of large complex pelvic collection with percutaneous drainage catheter in the left lateral aspect of the collection concerning for necrotic malignancy in the setting of known squamous cell carcinoma of the
anus
Colorectal surgery consulted - Upon further assessment there is no indication for urgent surgery at this time. The patient has been offered the option of pursuing surgery with Dr. Healy and it will require extensive surgical planning involving
medical oncology and plastic surgery. -Patient stated that she would want the drain removed but was explained that if removed she would probably need another drain in the near future. Drains would not resolve the situation and surgery was offered
and the patient was amenable to being seen by palliative care. Palliative care saw the patient and discussed goals of care.
Pain control with Dilaudid, ibuprofen, Percocet 1 tablet every 6 hours, gabapentin 200 mg and lidocaine cream added -pain controlled
IR removed drain yesterday. No focal tenderness. No significant leakage at the site of drain removal. No erythema.
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
March 2022 she underwent a laparoscopic sigmoid loop colostomy for perforated cancer and biopsies revealed a well-differentiated squamous cell carcinoma. She then underwent chemoradiation with 5-FU mitomycin-C from April to May in 2021.
Due to her feeling better she stopped treatment. After her symptoms reoccurred she resumed chemoradiation from November 2022 to January 2023 and it was discontinued after the linear accelerator broke. She has been to multiple hospitals including [facility]
[place] [facility] due to infection of the anal area and has undergone bedside drainage of the abscesses and treated with antibiotics.
On examination by Dr. Douglas, colorectal surgeon at [place], there was complete obliteration of the anal canal with tumor located 2 cm from the anal verge. The plan was for a PET/CT and MRI of the pelvis for consideration of an abdominoperineal
resection. She was also referred to palliative/ addiction medicine due to an opioid dependence.
An MRI in August 2023 was consistent with a Stage IIIa ([id number]) cancer. She was seen by Dr. Murillo at [facility] from medical oncology and chemotherapy and immunotherapy was discussed but not pursued due to the presence of the infection.
Palliative Consult -palliative met with patient and discussed the course of her disease. They discussed goals for care and patient remains considering social surgical options at this time. They recommended pain management with 1 tablet of
Percocet every 6 hours as needed. They advised that Dilaudid IV continue as needed for now. They suggested gabapentin 200 mg/day, and lidocaine/Prilocane ointment every 8 hours as needed. Patient was advised to consider outpatient referral to
interventional pain management with Dr. Mireles for block. Opioid risk tool high - likely home visits will be needed.
-UTI:
Patient had concerns about UTI symptoms and urine analysis was conducted showing elevated leukocyte Estrace, white blood cells in urine, and urine bacteria.
Currently treating with Rocephin
- Constipation - Monitoring
Continue bowel regimen -Milk of magnesia
- Opioid Dependence:
Monitoring for opioid withdrawal
Code DNR
Anticipated Discharge: Today
Subjective/Interval History
-
Date of Service: February 16, 2024
Objective Data
-
Labs:
Laboratory Results
02/16/24 02/16/24
06:28 06:29
WBC 8.6
Hgb 11.3 L
Hct 34.4 L
Plt Count 343
Sodium 136
Potassium 4.6
Chloride 101
Carbon Dioxide 29
BUN 20 H
Creatinine 0.7
Glucose 93
Calcium 9.8
Vital Signs:
Vital Signs
Temp Pulse Resp BP Pulse Ox
98.0 F 82 18 96/65 97
02/16/24 07:00 02/16/24 07:00 02/16/24 07:00 02/16/24 07:00 02/16/24 07:00
I&O
02/15/24 02/16/24 02/17/24
06:59 06:59 06:59
Intake Total 1979 / 1979 180 / 180
Output Total 90 / 90
Balance 1889 / 189 180 / 180
Review of Systems
-
History Source: Patient
Constitutional: Reports No Symptoms
EENT: Reports No Symptoms Reported
Respiratory: Reports No Symptoms
Cardiac: Reports No Symptoms
Abdomen/GI: Reports Pain
Breast: Reports No Symptoms
Genitourinary: Reports No Symptoms
Skin: Reports No Symptoms
Neuro: Reports No Symptoms
Endocrine: Reports No Symptoms
Hematologic / Lymphatic: Reports No Symptoms
Allergy / Immunology: Reports No Symptoms
Psych: Reports Depressed
Physical Exam
-
General: Well Developed, Appears Chronically Ill and Cachectic
HEENT: Normocephalic, Atraumatic and Moist Mucous Membranes
Respiratory: Clear to Auscultation
Cardiac: Regular Rhythm and S1/S2
Breast: Deferred by me
GI: Ostomy and Other (KORTNEY Drain)
Rectal: Deferred by Provider
Genito-urinary: Deferred by me
Musculoskeletal: No Clubbing, No Cyanosis and No Edema
Skin: Warm and Dry
Neuro: Nonfocal/Grossly Intact
--- NOTE | 2024-02-16 15:34 | W.DCSUMMARY ---
Addendum entered and electronically signed by Yakelin Garcia MD 02/16/24 18:27:
Read, reviewed, and agree. See same day progress note for additional details. Time spent coordinating care, DC planning, review of DC plan of care with resident, transition of care, review of records in EMR, med rec, consults, notes, d/w
consultants, nursing, family, and CM = 39 mins
Original Note:
Discharge Summary
Discharge Data
Date of Admission: 02/09/24
Date of Discharge: 02/16/24
-
Pending Results: No
Hospital Course
Primary discharge diagnosis
Anal squamous cell carcinoma
Secondary discharge diagnosis
Colostomy
Cancer related pain
53-year-old female with anal squamous cell carcinoma status post chemotherapy and ostomy 2021. Patient presented to the ED with pain in her rectal/buttock area that a drain was in place. Patient had stage IIIa cancer in August 2023 and has a
history of perirectal fistula. Upon admission, patient noted chills no fever. Abdomen pelvis CT showed redemonstration of a complex pelvic collection with a percutaneous drainage catheter in the left lateral aspect of the collection via a
transgluteal approach, suspicious for necrotic malignancy in the setting of known squamous cell carcinoma of the anus. Patient was not ready to undergo surgery and requested drain removal. IR discussed the risk and benefits of drain removal.
Patient still requested they take out drain. Drain was removed on February 15 without any complications. Patient felt relief by drain removal but had persistent pain in the rectal area. No significant leakage, warmth, redness was noted at the site of
prior drain.
Patient is recommended to follow-up with surgery as an outpatient as collection is possibly necrotic tumor rather than abscess. Patient to follow-up with outpatient palliative care on February 23. Patient appears fairly well at time of discharge.
Patient to continue MiraLAX and cancer-related pain medications as needed. Patient discharged to home with Levaquin for 1 week. Patient scheduled to receive nurse visits at home.
Discharge Plan
-
Patient Disposition: Home with Home Care
Discharge Diagnosis/Procedures: Anal squamous cell carcinoma
Condition: Fair
Diet: As tolerated
Activity: As tolerated
Driving Restrictions: As prior to admission
Bathing Restrictions: None
Blood Work: CBC, BMP in 1 week
Other Services: VN
Referrals:
Damion Sawant MD [Active] - in two weeks
Matthew Duarte MD [Active] - in less than 1 week (Draining anal wound with underlying anal squamous cell carcinoma)
Sabine Ho PA-C [Family Provider] -
Elizabeth Lutz MD [Active] - 02/24/24
Prescriptions:
New
levofloxacin 750 mg tablet
750 mg PO DAILY 7 Days Qty: 7 0RF
gabapentin 300 mg tablet extended release 24 hr
300 mg PO QPM 30 Days Qty: 30 3RF
oxycodone 5 mg tablet
5 mg PO Q6H PRN (Reason: mild to moderate pain) Qty: 20 0RF
Continued
polyethylene glycol 3350 [Miralax] 17 gram Powder In Packet
17 g PO DAILY
ibuprofen [Advil Liqui-Gels Minis] 200 mg Capsule
200 mg PO HSPRN PRN (Reason: mild pain)
ibuprofen 200 mg Tablet
400 mg PO BIDPRN PRN (Reason: mild pain)
docusate sodium [Stool Softener] 100 mg Capsule
200 mg PO HS
Centrum Adult 50 Plus 80 mcg Tablet,Chewable
2 tab PO DAILY
morphine 15 mg tablet
15 mg PO QIDPRN PRN (Reason: moderate to severe pain)
Patient Comments:
02/09/2024: last filled 12/23/23, 120 tabs for 30 days from [facility]
Medical Marijuana
inhalation PRN (Reason: pain)
Patient Comments:
Patient uses both raw marijuana flower and vaporized THC concentrate
Discontinued
sodium chloride 0.9 % (flush) Syringe
10 ml intra-catheter DAILY
Discharge Orders:
Discharge Patient (As Directed); Ordered 02/16/24
Ordered By: Oma Stafford
Discharge Date and Time
Print Language: VIETNAMESE
--- NOTE | 2024-02-16 17:30 | PTCARENOTE ---
Security came to pt's room and returned pt's belongings to her.
--- NOTE | 2024-02-16 18:18 | PTCARENOTE ---
Pt discharged. Wheeled to main lobby via wheelchair. Security to meet pt in main lobby and give her her belongings.
== END 2024-02-16 18:22 | disposition home health service (06) | DRG 375 ==
LOC: 3 WEST ACU 22:39
PROVIDERS: ADMITTING PHYSICIAN Hospitalist; ATTENDING PHYSICIAN Internal Medicine; CONSULT PHYSICIAN Internal Medicine Hospice and Palliative Medicine; EMERGENCY PHYSICIAN Emergency Medicine; FAMILY PHYSICIAN Physician Assistant Medical; OTHER PHYSICIAN Surgery
DX: C21.1 Malignant neoplasm of anal canal (principal); C79.89 Secondary malignant neoplasm of other specified sites; F11.20 Opioid dependence, uncomplicated; R64 Cachexia; Z68.1 Body mass index [BMI] 19.9 or less, adult; F84.0 Autistic disorder; F32.A Depression, unspecified; F41.9 Anxiety disorder, unspecified; G89.3 Neoplasm related pain (acute) (chronic); Z51.5 Encounter for palliative care; K59.00 Constipation, unspecified; R11.0 Nausea; F17.200 Nicotine dependence, unspecified, uncomplicated; Z79.899 Other long term (current) drug therapy; Z87.19 Personal history of other diseases of the digestive system; Z85.048 Personal history of other malignant neoplasm of rectum, rectosigmoid junction, and anus; Z93.3 Colostomy status; Z90.49 Acquired absence of other specified parts of digestive tract; Z92.21 Personal history of antineoplastic chemotherapy; Z92.3 Personal history of irradiation; Z90.710 Acquired absence of both cervix and uterus
CPT/HCPCS: 49424; 74177; 76080; 80048; 80053; 81003; 81015; 85025; 85027; 87086; 96361; 96374; 96376; 99285; 99406; J2997; Q9967